=== PATIENT | female | born 1950 | race Caucasian/White ===

== ENCOUNTER 2017-03-25 11:45 | Inpatient (IN) | payer MEDICARE ==
[2017-03-25] MEDS ORDERED: NS 0.9% 1000 ML* 1,000 ML IV ONE (11:50)
--- NOTE | 2017-03-25 12:22 | RAD ---
INDICATION: Left-sided weakness COMPARISON: None. TECHNIQUE: Contiguous axial sections of the brain were obtained from the skull base to the vertex without contrast. FINDINGS: The ventricles, cisterns and sulci are within normal limits. There is loss of the reddy-white matter differentiation involving the right parietal lobe (image 16 of 28) extending inferiorly to involve the right temporal lobe. There is no appearance of acute intracranial hemorrhage. Elsewhere the reddy-white matter differentiation is adequately maintained. There are symmetric hyperdensities at the bilateral basal ganglia. The visualized portion of the paranasal sinuses and mastoid air cells appear clear. IMPRESSION: CT findings are most consistent with a subacute territorial infarction involving the right MCA. Findings were discussed with Dr. Ramirez over the telephone at 1219 hours on March 25, 2017.
[2017-03-25 12:31] LABS: Hematocrit 42 % (35-47); Hemoglobin 13.9 g/dl (12.0-16.0); Mean Corpuscular HGB Conc 34 g/dl (31-36); Mean Corpuscular Hemoglobin 31 pg (27-31); Mean Corpuscular Volume 91 fL (80-97); Mean Platelet Volume 8 um3 (7.4-10.4); Red Blood Count 4.54 10^6/ul (4.0-5.4); Red Cell Distribution Width 15 % (10.5-15); White Blood Count 11.2 10^3/ul (3.5-10.8)
--- NOTE | 2017-03-25 12:38 | RAD ---
HISTORY: Stroke COMPARISONS: None VIEWS: 1: frontal portable view of the chest at 12:15 PM FINDINGS: LINES AND TUBES: None. CARDIOMEDIASTINAL SILHOUETTE: The cardiomediastinal silhouette is normal for portable technique. PLEURA: The costophrenic angles are sharp. No pleural abnormalities are noted. LUNG PARENCHYMA: The lungs are clear. ABDOMEN: The upper abdomen is clear. There is no subphrenic gas. BONES AND SOFT TISSUES: No bone or soft tissue abnormalities are noted. IMPRESSION: NO ACTIVE CARDIOPULMONARY DISEASE.
[2017-03-25 12:45] LABS: Troponin I 0.01 ng/mL (<0.04)
[2017-03-25 12:48] LABS: Albumin 3.6 g/dL (3.2-5.2); BUN/Creatinine Ratio 27.1 (8-20); Calcium 9.4 mg/dL (8.6-10.3); EGFR African American 86.3 (>60); EGFR Non-African American 67.1 (>60); Globulin 3.5 g/dL (2-4); HDL Cholesterol 51.2 mg/dL; Potassium 3.8 mmol/L (3.5-5.0); Total Bilirubin 0.6 mg/dL (0.2-1.0); Total Protein 7.1 g/dL (6.4-8.9)
[2017-03-25] MEDS ORDERED: Aspirin SUPP* 300 MG PR ONE (13:55)
[2017-03-25 14:10] LABS: Urine Bacteria Absent (Absent); Urine Bilirubin Negative (Negative); Urine Glucose Negative (Negative); Urine Nitrite Negative (Negative)
[2017-03-25] MEDS ORDERED: Acetaminophen SUPP* 650 MG SUPP PR PRN (14:32)
[2017-03-25] MEDS ORDERED: NS 0.9% 1000 ML* 1,000 ML IV SCH (14:45)
[2017-03-25] MEDS ORDERED: Iohexol 350* (CONTRAST) 500 ML MDV IV ONE (15:13)
--- NOTE | 2017-03-25 16:04 | CONS ---
NEUROLOGY CONSULTATION: DATE OF CONSULTATION: 03/25/17. LOCATION: She is in the emergency to be admitted. REFERRING PHYSICIAN: Dr. Ramirez. CHIEF COMPLAINT: Fall, left sided weakness. HISTORY OF PRESENT ILLNESS: Haroldo Saavedra is a 66-year-old left-handed woman who fell last night requiring help to get up. She is accompanied by her grandson who apparently she lives with. Her grandson was in home last night, but apparently his friend helped to get up into bed. This morning when they tried to wake her up it was clear that she was not in her usual state of health and so she was brought into the emergency by ambulance. In the emergency room she was noted to have a left hemiparesis and a right gaze deviation. A CT scan of the brain was obtained and I reviewed the images and it shows a subacute right middle cerebral artery infarction. There is no prior history of stroke. Prior to yesterday she felt her usual state of health. She just moved here a couple of moths ago to live with her grandson from [place]. She does not have any physician in this area. She describes a Dr. Culp in [place] who she sees, but she states she has not seen him in a number of years. In regards to prior medical problems she states she has a heart condition, but she is not able to elaborate. She does not think that she has had a heart attack, congestive heart failure, nor does she recognize the term atrial fibrillation. She is not taking any medications at home. So she is not aware if she is supposed to be taking any medications. She does not take aspirin on a regular basis either. PAST MEDICAL HISTORY: Her past medical history is essentially notable for: 1 Chronic tobacco use. 2. Some type of heart condition, and otherwise no known past medical history, although she does not seek regular medical care. ALLERGIES: She does not have any drug allergies. SOCIAL HISTORY: She smokes half a pack of cigarettes per day. She does not drink alcohol. Again she recently moved to this area and is living with her grandson. REVIEWS OF SYSTEMS: Is negative for seizures, head trauma, prior strokes, diabetes, shortness of breath, chest pain, or difficulty walking. She has not had any falls or recently until last evening. She has not been sick lately, specifically no fevers or infectious illnesses. She denies headaches or pain. She is aware that she came in because she fell, but she is not aware of any focal weakness. PHYSICAL EXAMINATION: On physical examination very thin woman who looks older than her 66-years. Temperature 98.6 temporally, blood pressure running between 160 to 170 systolic over 80 to 90 diastolic, heart rate is in the 60s and in sinus on the monitor, respirations 16. Oxygen saturation is 100% on room air. Neck is supple. Head is atraumatic. Oral mucosa is moist and atraumatic. Heart is in regular rate and rhythm without murmurs heard. Carotid pulses are weekly felt, I do not auscultate any bruits. Oral mucosa is moist and there is no oral trauma. Lungs are clear anterolaterally. Neurologic exam: She has a forced right gaze deviation. Pupils react equally from 4 to 2.5 mm. Funduscopic exam reveals sharp discs, no arterial tortuosity. Visual guthrie reveal a dense left homonymous hemianopsia. Facial musculature reveals central pattern left facial weakness. Tongue protrudes weekly to the left and speech is dysarthric and somewhat intelligible. There is no gag response. Motor exam reveals no movement of the left side except when she yawns and the left arm flexes. She does not appreciate light touch or pin in the left side of her body. She has normal sensation on the right. She has normal volitional strength to the right arm and leg. There is no tremor or other abnormal movements. Reflexes are hypoactive diffusely and she has a left Babinski sign. She is somewhat sleepy. She is oriented to person and place. She is not aware of her left hemiparesis. When presented her left hand and left thumb in her visual field she reports that it is my thumb hand. LABORATORY DATA: Includes a CBC notable for white blood cell count borderline elevated 11.2, platelet count of 186,000. Coag's notable for INR borderline low at 0.88, PTT normal at 30 seconds. Chemistry profile notable for nonfasting glucose of 117, troponin 0.01, cholesterol [address] scan as described above. EKG reveals some nonspecific ST T-wave changes in sinus rhythm. IMPRESSION: My impression is that of a middle cerebral artery distribution stroke, possibly internal carotid occlusion. She is well outside the range for any type of endovascular procedure. Recommend giving her rectal aspirin 300 mg. I would hold off on statins until she has a swallowing evaluation, but I would recommend high dose statin therapy once she is able to swallow safely. I will keep her well hydrated and currently let her blood pressure run. I would not recommend treating unless her systolic exceeds 200 or diastolic exceeds 105. Recommend a CT angiogram of the neck and brain as well as an MRI scan of the brain. She should also have a transthoracic echocardiogram and possibly serial troponins. She should be admitted to telemetry. I have explained to Ms. Saavedra and her grandson that she is showing signs and symptoms of a stroke and her CAT scan confirms an early stroke. I explained that she needs to be admitted for further evaluation and treatment. I will follow her along with you. [id number]/[facility] #: [id number] JOSE R
--- NOTE | 2017-03-25 16:29 | HP ---
CC: Dr. Prado HISTORY AND PHYSICAL: DATE OF ADMISSION: 03/25/17 TIME OF EVALUATION: 02:50 p.m. PRIMARY CARE PHYSICIAN: The patient has no PCP in [place]. Her primary care provider used to be Dr. Titi Westfall at [facility] in [place], [place], phone number [phone]. CONSULTING NEUROLOGIST: Dr. Prado. CHIEF COMPLAINT: She could not move. HISTORY OF PRESENT ILLNESS: Mrs. Saavedra is a 66-year-old lady with a past medical history of tobacc o abuse that was brought into the emergency room with left-sided weakness and dysarthria. She is un able to provide any significant history at this point, and all the information is obtained from her grandson, Pravin Cuevas, at bedside. He says that the patient is healthy and moved to live with him from [place] 2 months ago. Yest erday around 6, she sustained a fall at home and one of his friends helped her. This morning, he fe lt it was strange that he woke up and she was not up, so he went to check on her in the bedroom and she was feeling bad, unable to move, he could not understand what she was saying and he noticed that she had incontinent of urine in bed. As far as he knows, she had no other complaints and she was doing well when he saw her yesterday bef ore going to work. PAST MEDICAL HISTORY: None as per grandson. ALLERGIES: As far as he knows, no known drug allergies. FAMILY HISTORY: He says that one of her sons of leukemia and daughter has hypertension. SOCIAL HISTORY: The patient has been a smoker half a pack a day; the grandson does not know for how long. No history of alcohol or drug use as far as he knows. He is the surrogate decision maker, Krysten Cuevas, . REVIEW OF SYSTEMS: I am unable to obtain from the patient at this time due to her significant dysar thria. PHYSICAL EXAMINATION VITAL SIGNS: Temperature 98.6, heart rate is 63, respiratory rate is 16, oxygen saturation 99% on r oom air, blood pressure 179/87. HEENT: Pupils are equal and reactive to light. The patient has a gaze deviation to the right and n ystagmus. CHEST: Breath sounds present bilaterally with no added sounds. CVS: Normal S1, S2. Regular rate and rhythm. ABDOMEN: Soft. Bowel sounds are present. EXTREMITIES: No edema. NEURO: She is alert, awake, oriented to self at least, severe dysarthria, left hemiplegia. LABORATORY/IMAGING DATA: The patient had a CBC that showed a WBC of 11.2, hemoglobin of 13.9, hailee tocrit of 42, platelets 186,000 with 76% neutrophils. Chemistry shows sodium of 138, potassium of 3. 8, chloride of 106, bicarb 24, anion gap of 8, BUN 23, creatinine 0.85, glucose 117, lactic acid 0.9 , and calcium 9.4. LFTs are normal. Troponin 0.01. Lipid profile showed triglycerides of 74, total cholesterol of 230, LDL of 164, HDL of 51. Urinalysis showed 3+ protein, 3+ blood, 3+ RBC's. CT of the brain without contrast showed findings most consistent with a subacute territorial infract ion involving the right MCA. Chest x-ray showed no active cardiopulmonary disease. EKG showed sinus rhythm at 67 beats per minut e. The patient has T-wave inversion from V1 to V5. There is no prior EKG to compare. ASSESSMENT AND PLAN: Mrs. Saavedra is a 66-year-old lady with past medical history of tobacco abuse t hat was found by her grandson this morning with dysarthria, left hemiplegia, found to have a right M CA stroke. 1. Right MCA cerebrovascular accident. Considering her physical examination, the patient appears t o have had a large right hemisphere stroke. Clinically, the patient appears to have large right hemisphere cerebrovascular accident, so she will be admitted to the intensive care unit for close monitoring. She was already seen by Neurology and she is going to have an echocardiogram, MRI of the brain, CT of the head and neck to complete her wo rkup. She will be seen by PT, OT, and Speech Therapy, but at this time she is deemed unsafe to swallow. S he will receive rectal aspirin. She will require a statin, but as I said before, she is not safe to follow at this point. We are going to obtain records from her primary care provider to confirm that she does not have any significant medical history. 2. Tobacco abuse. The patient does not have a nicotine patch for supplementation. 3. DVT prophylaxis. The patient has a score of 2 on the DVT Prophylaxis Risk Assessment Guide and it was discussed with Neurology and it was felt that it is safe to give her subcutaneous heparin. 4. Code status is full. TIME SPENT: Approximately 60 minutes were spent with the patient to review medical records, review physical examination to complete admission, more than half of this time was spent [id number] with the patient in coordination of care. [id number]/[facility] #: [id number]
[2017-03-25] MEDS: Nicotine PATCH 14 MG/24 HR* PATCH TRANSDERM SCH (17:12)
--- NOTE | 2017-03-25 17:15 | RAD ---
INDICATION: Cerebrovascular accident. COMPARISON: Comparison is made with a prior CT of the brain from March 25, 2017. TECHNIQUE: A CT angiogram of the head and neck was performed following intravenous injection of 80 ml of Omnipaque 350 nonionic contrast. Contiguous axial sections were obtained from the thoracic inlet through the skull vertex. Images were reconstructed in the coronal and sagittal planes and in a 3-D volume rendered format. The distal cervical internal carotid artery diameter is used as the denominator for stenosis measurement. FINDINGS: RIGHT CAROTID: The common and internal carotid arteries appear widely patent without evidence for hemodynamically significant stenosis. There is mild calcific plaque present within the carotid bulb. LEFT CAROTID: The common and internal carotid arteries appear widely patent without evidence for hemodynamically significant stenosis. VERTEBRALS: The vertebral arteries appear patent without evidence for high-grade stenosis. CTA BRAIN: The internal carotid, anterior and middle cerebral arteries appear patent without evidence for high-grade stenosis or occlusion. There is asymmetric decreased opacification in density in several branches of the right middle cerebral artery. No large vessel thrombus is appreciated. The vertebral, basilar and posterior cerebral arteries appear patent without evidence for high-grade stenosis or occlusion. There is a focal area of decreased density present in the right parietal and temporal lobes most consistent with a middle cerebral artery infarct. There is local mass effect with effacement of the sulci. No midline shift is seen. No aneurysm or vascular malformation is seen. NECK: No significant enlarged lymph nodes are seen within the neck. The thyroid, parotid and submandibular glands appear to be within normal limits. The lung apices appear clear. There is opacification of the right maxillary sinus. There is marked also thickening within the ethmoid and sphenoid sinuses. IMPRESSION: 1. FINDINGS CONSISTENT WITH AN ACUTE TO SUBACUTE RIGHT MIDDLE CEREBRAL ARTERY INFARCT. 2. NO EVIDENCE FOR CAROTID STENOSIS OR LARGE VESSEL INTRALUMINAL THROMBUS. THERE IS DECREASED OPACIFICATION AND DENSITY AND SEVERAL BRANCHES OF THE RIGHT MIDDLE CEREBRAL ARTERY. CPT II Codes: 3100F
--- NOTE | 2017-03-25 18:37 | PN ---
Hospitalist Progress Note HOSPITALIST ADDENDUM Called by RN because patient is showing mild anisocoria R 3mm L 4mm. This is the only change on her neurocheck. Patient re-evaluated at bedside with no other changes. CTA head reviewed. Case d/w Neurology (Dr. Prado) - recommended continuation of ASA OH, make sure patient is well hydrated, but would not recommend anticoagulation as her risk of X [employer] bleeding is very high. We will continue to monitor her closely in ICU and she'll have her MRI later tonight.
--- NOTE | 2017-03-25 20:57 | RAD ---
INDICATION: Cerebrovascular accident. COMPARISON: Comparison is made with a prior CT of the brain from March 25, 2017. TECHNIQUE: Sagittal T1, axial T1, T2, susceptibility, FLAIR and diffusion weighted images were obtained. FINDINGS: The ventricles and cisterns appear to be within normal limits. There are small areas of increased signal intensity on T2-weighted images present in the subcortical and periventricular white matter most consistent with chronic small vessel ischemic changes. In addition, there is a moderate size area of increased signal intensity on T2-weighted images present in the right temporal and parietal lobes associated with restricted diffusion most consistent with a nonhemorrhagic infarct. There is very mild local mass effect with compression of the adjacent sulci. No midline shift is present. There is opacification of the right maxillary sinus and mucosal thickening within the ethmoid air cells. The mastoid air cells appear clear. IMPRESSION: 1. MODERATE-SIZE NONHEMORRHAGIC RIGHT MIDDLE CEREBRAL ARTERY TERRITORY INFARCT. 2. FINDINGS CONSISTENT WITH MILD CHRONIC SMALL VESSEL ISCHEMIC CHANGES.
[2017-03-25] MEDS: Heparin VIAL(*) 5000 UNITS/ML VIAL (FIVE THOUSAND) SUBCUT SCH (21:45)
[2017-03-25] MEDS: Nicotine Patch Removal NOTE FOLLOW UP SCH (21:46)
[2017-03-26] MEDS ORDERED: hydrALAZINE IV* 20 MG/ML VIAL IV PRN (02:41)
[2017-03-26] MEDS ORDERED: Furosemide IV* 10 MG/ML 2 ML VIAL (20 MG) IV ONE (04:00)
[2017-03-26] MEDS: Heparin VIAL(*) 5000 UNITS/ML VIAL (FIVE THOUSAND) SUBCUT SCH ×3 (05:42→21:32)
[2017-03-26 05:58] LABS: Hematocrit 41 % (35-47); Hemoglobin 14.1 g/dl (12.0-16.0); Mean Corpuscular HGB Conc 34 g/dl (31-36); Mean Corpuscular Hemoglobin 31 pg (27-31); Mean Corpuscular Volume 91 fL (80-97); Mean Platelet Volume 8 um3 (7.4-10.4); Red Blood Count 4.54 10^6/ul (4.0-5.4); Red Cell Distribution Width 14 % (10.5-15); White Blood Count 11.1 10^3/ul (3.5-10.8)
[2017-03-26 06:14] LABS: BUN/Creatinine Ratio 21.1 (8-20); Calcium 9.4 mg/dL (8.6-10.3); EGFR African American 106.3 (>60); EGFR Non-African American 82.6 (>60); Potassium 3.4 mmol/L (3.5-5.0)
--- NOTE | 2017-03-26 07:25 | ED ---
Tanna Carter Alfonso, scribed for Erick Ramirez MD on 03/25/17 at 1153 . Neurological HPI - HPI Summary HPI Summary: This patient is a 66 year old F BIBA to [facility] accompanied by grandson with a chief complaint of left sided weakness noticed at 0100 today. She was last seen well yesterday at 1900. The patient rates the pain 0/10 in severity. Symptoms aggravated by nothing. Symptoms alleviated by nothing. Patient reports CP (left sided). Grandson states she does not take any medications and denies PSHx. Tobacco abuse disorder (1/2 PPD). - History of Current Complaint Chief Complaint: EDNeurologicalDeficit Stated Complaint: POSS STROKE Hx Obtained From: Patient Onset/Duration: Sudden Onset, Started hours ago - last seen well at 1900 yesterday. Noticed at 0100 today., Still Present Timing: Constant Neurological Deficit Location: LUE, LLE Pain Intensity: 0 Pain Scale Used: 0-10 Numeric Character: Motor Weakness, Other: - CP Aggravating: Nothing Alleviating: Nothing - Allergy/Home Medications Allergies/Adverse Reactions: Allergies Allergy/AdvReac Type Severity Reaction Status Date / Time No Known Allergies Allergy Verified 03/25/17 12:08 Home Medications: Home Medications NK [No Home Medications Reported] 03/25/17 [History Confirmed 03/25/17] PMH/Surg Hx/FS Hx/Imm Hx Opthamlomology History: Denies: Hx Legally Blind EENT History: Denies: Hx Deafness Infectious Disease History: Unable to Obtain/Confirm Infectious Disease History: Denies: Traveled Outside the [place] in Last 30 Days - Family History Known Family History: Positive: Hypertension - Social History Lives: With Family - grandson Alcohol Use: Rare Hx Substance Use: No Substance Use Type: Reports: None Hx Tobacco Use: Yes Smoking Status (MU): Heavy Every Day Tobacco Smoker - 1/2 PPD Review of Systems Negative: Fever Positive: Chest Pain Positive: Weakness - left sided All Other Systems Reviewed And Are Negative: Yes Physical Exam - Summary Physical Exam Summary: VITAL SIGNS: Reviewed. GENERAL: Patient is a well-developed and nourished female who is lying comfortable in the stretcher. Patient is not in any acute respiratory distress. HEAD AND FACE: No signs of trauma. No ecchymosis, hematomas or skull depressions. No sinus tenderness. EYES: PERRLA, EOMI x 2, No injected conjunctiva, no nystagmus. No photophobia. EARS: Hearing grossly intact. Ear canals and tympanic membranes are within normal limits. MOUTH: Oropharynx within normal limits. NECK: Supple, trachea is midline, no adenopathy, no JVD, no carotid bruit, no c- spine tenderness, neck with full ROM. No meningeal signs, no Kernig's or brudzinskis signs. CHEST: Symmetric, no tenderness at palpation LUNGS: Clear to auscultation bilaterally. No wheezing or crackles. CVS: Regular rate and rhythm, S1 and S2 present, no murmurs or gallops appreciated. ABDOMEN: Soft, non-tender. No signs of distention. No rebound no guarding, and no masses palpated. Bowel sounds are normal. EXTREMITIES: FROM in all major joints, no edema, no cyanosis or clubbing. NEURO: Alert and oriented x 3. Speech follows commands. See NIH stroke scale. SKIN: Dry and warm GCS: 15 Triage Information Reviewed: Yes Vital Signs On Initial Exam: Initial Vitals Temp Pulse Resp BP Pulse Ox 98.6 F 80 14 158/89 99 03/25/17 11:46 03/25/17 11:46 03/25/17 11:46 03/25/17 11:46 03/25/17 11:46 Vital Signs Reviewed: Yes - Shiela Coma Scale Best Eye Response: 4 - Spontaneous Best Motor Response: 6 - Obeys Commands Best Verbal Response: 5 - Oriented Diagnostics - Vital Signs Vital Signs Temp Pulse Resp BP Pulse Ox 03/25/17 11:46 98.6 F 80 14 158/89 99 - Laboratory Lab Results: Lab Results 03/25/17 03/25/17 03/25/17 Range/Units 12:10 12:10 12:10 WBC 11.2 H (3.5-10.8) 10^3/ul RBC 4.54 (4.0-5.4) 10^6/ul Hgb 13.9 (12.0-16.0) g/dl Hct 42 (35-47) % MCV 91 (80-97) fL MCH 31 (27-31) pg MCHC 34 (31-36) g/dl RDW 15 (10.5-15) % Plt Count 186 (150-450) 10^3/ul MPV 8 (7.4-10.4) um3 Neut % (Auto) 76.6 (38-83) % Lymph % (Auto) 14.1 L (25-47) % [place] % (Auto) 8.5 (1-9) % Eos % (Auto) 0.4 (0-6) % Baso % (Auto) 0.4 (0-2) % Absolute Neuts (auto) 8.6 H (1.5-7.7) 10^3/ul Absolute Lymphs (auto) 1.6 (1.0-4.8) 10^3/ul Absolute Monos (auto) 1.0 H (0-0.8) 10^3/ul Absolute Eos (auto) 0 (0-0.6) 10^3/ul Absolute Basos (auto) 0 (0-0.2) 10^3/ul Absolute Nucleated RBC 0.01 10^3/ul Nucleated RBC % 0 INR (Anticoag Therapy) 0.88 L (0.89-1.11) APTT 30.0 (26.0-36.3) seconds Sodium 138 (133-145) mmol/L Potassium 3.8 (3.5-5.0) mmol/L Chloride 106 (101-111) mmol/L Carbon Dioxide 24 (22-32) mmol/L Anion Gap 8 (2-11) mmol/L BUN 23 (6-24) mg/dL Creatinine 0.85 (0.51-0.95) mg/dL Est GFR ( Amer) 86.3 (>60) Est GFR (Non-Af Amer) 67.1 (>60) BUN/Creatinine Ratio 27.1 H (8-20) Glucose 117 H (70-100) mg/dL Lactic Acid (0.5-2.0) mmol/L Calcium 9.4 (8.6-10.3) mg/dL Total Bilirubin 0.60 (0.2-1.0) mg/dL AST 16 (13-39) U/L ALT 10 (7-52) U/L Alkaline Phosphatase 96 (34-104) U/L Troponin I 0.01 (<0.04) ng/mL Total Protein 7.1 (6.4-8.9) g/dL Albumin 3.6 (3.2-5.2) g/dL Globulin 3.5 (2-4) g/dL Albumin/Globulin Ratio 1.0 (1-3) Triglycerides 74 mg/dL Cholesterol 230 mg/dL LDL Cholesterol 164 mg/dL HDL Cholesterol 51.2 mg/dL Urine Color Urine Appearance Urine pH (5-9) Ur Specific [place] (1.010-1.030) Urine Protein (Negative) Urine Ketones (Negative) Urine Blood (Negative) Urine Nitrate (Negative) Urine Bilirubin (Negative) Urine Urobilinogen (Negative) Ur Leukocyte Esterase (Negative) Urine WBC (Auto) (Absent) Urine RBC (Auto) (Absent) Urine Bacteria (Absent) Urine Glucose (Negative) Urine Ascorbic Acid (Negative) Blood Type Antibody Screen 03/25/17 03/25/17 03/25/17 Range/Units 12:10 12:10 12:32 WBC (3.5-10.8) 10^3/ul RBC (4.0-5.4) 10^6/ul Hgb (12.0-16.0) g/dl Hct (35-47) % MCV (80-97) fL MCH (27-31) pg MCHC (31-36) g/dl RDW (10.5-15) % Plt Count (150-450) 10^3/ul MPV (7.4-10.4) um3 Neut % (Auto) (38-83) % Lymph % (Auto) (25-47) % Madison % (Auto) (1-9) % Eos % (Auto) (0-6) % Baso % (Auto) (0-2) % Absolute Neuts (auto) (1.5-7.7) 10^3/ul Absolute Lymphs (auto) (1.0-4.8) 10^3/ul Absolute Monos (auto) (0-0.8) 10^3/ul Absolute Eos (auto) (0-0.6) 10^3/ul Absolute Basos (auto) (0-0.2) 10^3/ul Absolute Nucleated RBC 10^3/ul Nucleated RBC % INR (Anticoag Therapy) (0.89-1.11) APTT (26.0-36.3) seconds Sodium (133-145) mmol/L Potassium (3.5-5.0) mmol/L Chloride (101-111) mmol/L Carbon Dioxide (22-32) mmol/L Anion Gap (2-11) mmol/L BUN (6-24) mg/dL Creatinine (0.51-0.95) mg/dL Est GFR ( Amer) (>60) Est GFR (Non-Af Amer) (>60) BUN/Creatinine Ratio (8-20) Glucose (70-100) mg/dL Lactic Acid 0.9 (0.5-2.0) mmol/L Calcium (8.6-10.3) mg/dL Total Bilirubin (0.2-1.0) mg/dL AST (13-39) U/L ALT (7-52) U/L Alkaline Phosphatase (34-104) U/L Troponin I (<0.04) ng/mL Total Protein (6.4-8.9) g/dL Albumin (3.2-5.2) g/dL Globulin (2-4) g/dL Albumin/Globulin Ratio (1-3) Triglycerides mg/dL Cholesterol mg/dL LDL Cholesterol mg/dL HDL Cholesterol mg/dL Urine Color Cassandra Urine Appearance Cloudy Urine pH 5.0 (5-9) Ur Specific [place] 1.017 (1.010-1.030) Urine Protein 3+(>=500 mg/dl) H (Negative) Urine Ketones Negative (Negative) Urine Blood 3+ H (Negative) Urine Nitrate Negative (Negative) Urine Bilirubin Negative (Negative) Urine Urobilinogen Negative (Negative) Ur Leukocyte Esterase Negative (Negative) Urine WBC (Auto) Absent (Absent) Urine RBC (Auto) 3+(>10/hpf) H (Absent) Urine Bacteria Absent (Absent) Urine Glucose Negative (Negative) Urine Ascorbic Acid * H (Negative) Blood Type O Positive Antibody Screen Negative Result Diagrams: 03/26/17 05:45 03/26/17 05:45 Lab Statement: Any lab studies that have been ordered have been reviewed, and results considered in the medical decision making process. - Radiology CXR Radiology Interpretation Completed By: Radiologist - NO ACTIVE CARDIOPULMONARY DISEASE. ED physician has reviewed this radiology report and agrees. 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 Findings were discussed with Dr. Ramirez over the telephone at 1219 hours on March 25, 2017. ED physician has reviewed this radiology report and agrees. - EKG 1232 Cardiac Rate: NL - BPM 67 EKG Rhythm: Sinus Rhythm EKG Interpretation: No ST elevation. T waves inversions in V3-V5. EKG Comparison: Other - No prior to compare NIH Scale - NIH Scale Level of Consciousness: Alert/Keenly Responsive Ask Patient the Month and His/Her Age: Both Correct Ask Pt to Open/Close Eyes and Automotive Sales Specialist/Release Non-Paretic Hand: Both Correctly Best Gaze (Only Horizontal Eye Movement): Normal Visual Field Testing: No Visual Loss Facial Paresis-Pt to Smile & Close Eyes or Grimace Symmetry: Minor Paralysis Motor Function - Right Arm: No Drift-Holds 10 Seconds Motor Function - Left Arm: No Effort Against [place] Motor Function - Right Leg: No Drift-Holds 10 Seconds Motor Function - Left Leg: No Effort Against [place] Limb Ataxia-Must be out of Proportion to Weakness Present: Present in Two Limbs Sensory (Use Pinprick to Test Arms/Legs/Trunk/Face): Pinprick Less on Affected Best Language (Describe Picture, Name Items): Some Loss Dysarthria (Read Several Words): Slurs Some Words Extinction and Inattention: No Abnormality Total Score: 12 Course/Dx - Course Assessment/Plan: This patient is a 66 year old F BIBA to [facility] accompanied by grandson with a chief complaint of left sided weakness noticed at 0100 today. She was last seen well yesterday at 1900. The patient rates the pain 0/10 in severity. Symptoms aggravated by nothing. Symptoms alleviated by nothing. Patient reports CP (left sided). Grandson states she does not take any medications and denies PSHx. Tobacco abuse disorder (1/2 PPD). An EKG reveals NSR and T waves inversions in V3-V5. CXR reveals NO ACTIVE CARDIOPULMONARY DISEASE. ED physician has reviewed this radiology report and agrees. 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 Findings were discussed with Dr. Ramirez over the telephone at 1219 hours on March 25, 2017. ED physician has reviewed this radiology report and agrees. Test results with no significant abnormalities except for WBC of 11.2 and glucose of 117. Urinalysis negative for UTI. Initially when the patient came in, I consulted Dr. Prado (neurologist) at 1202 who came and accessed the patient in the ED. He did not want me to give ASA at this time. After his assessment, he agrees with the assessment of CVA and recommends admission. I consulted Dr. Bales (hospitalist) who agrees to admit. The patient is hemodynamically stable. - Differential Dx Differential Diagnoses Neuro: Positive: Cerebrovascular Accident, Seizure Disorder, Transient Ischemic Attack, Vasovagal Reaction - Diagnoses Provider Diagnoses: CVA (cerebral vascular accident) - Physician Notifications Discussed Care Of Patient With: Venkata Prado Time Discussed With Above Provider: 12:02 Instructed by Provider To: Other - Consulted Dr. Prado (neurologist) who will see the patient in the ED. Consulted Dr. Bales (hospitalist) who agrees to admit. - Critical Care Time Critical Care Time: 30-74 min Discharge - Discharge Plan Condition: Stable Disposition: ADMITTED TO [facility] The documentation as recorded by the Tanna roberts Alfonso accurately reflects the service I personally performed and the decisions made by me, Erick Ramirez MD.
[2017-03-26] MEDS: Nicotine PATCH 14 MG/24 HR* PATCH TRANSDERM SCH (08:37)
[2017-03-26] MEDS ORDERED: Furosemide IV* 10 MG/ML 2 ML VIAL (20 MG) IV SLOW PU ONE (08:43)
[2017-03-26] MEDS ORDERED: Aspirin SUPP* 300 MG PR SCH (09:00)
--- NOTE | 2017-03-26 09:40 | ECHO ---
Patient: REINALDO HARMON [facility] Rec#: [id number] : 1950 Date: 03/26/2017 Age: 66y Height: 154.94 cm / 61.0 in Weight: 40.82 kg / 90.0 lbs Sex: F BSA: 1.35 Room#: ICU 8 Admit Date#: 03/25/2017 Type: Inpatient Referring: Graciela Porter MD Reading: Joe Catherine MD Painter Maintenance: Armida RiveraRDCS,RDMS Transthoracic Echocardiogram Indication: CVA BP: 138/91 HR: 83 Rhythm: NSR Findings History: No previous history Technical Comments: The study quality is fair. Completed 829 The study is technically limited due to poor parasternal windows. Left Ventricle: The left ventricular chamber size is normal. Mild concentric left ventricular hypertrophy is observed. Global left ventricular wall motion and contractility are within normal limits. There is normal left ventricular systolic function. The estimated ejection fraction is 55-60%. There is no consistent Doppler evidence of clinically significant diastolic dysfunction. Left Atrium: The left atrial chamber size is normal. Right Ventricle: The right ventricular chamber size and systolic function are within normal limits. Right Atrium: The right atrial cavity size is normal. The bubble study is negative.There is no evidence of right to left shunting at the atrial level by bubble study. A patent foramen ovale is not demonstrated with color Doppler and agitated contrast. Aortic Valve: There is no evidence of aortic valve thickening. There is no evidence of aortic regurgitation. There is no evidence of aortic stenosis. Mitral Valve: The mitral valve leaflets are mildly thickened. There is a trace of mitral regurgitation. There is no evidence of mitral stenosis. Tricuspid Valve: The tricuspid valve leaflets are normal. There is trace tricuspid regurgitation. Unable to estimate the right ventricular systolic pressure. Pulmonic Valve: The pulmonic valve structure is not well visualized. There is no evidence of pulmonic regurgitation. Pericardium: There is no significant pericardial effusion. Aorta: The ascending aorta is not well visualized. There is no dilatation of the aortic arch. There is no dilation of the aortic root. Pulmonary Artery: The main pulmonary artery is not well visualized. Venous: The inferior vena cava is not visualized. Contrast: Intravenous agitated saline contrast was used to assess intracardiac shunting. Images 1 and 2 Conclusions The study is technically limited due to poor parasternal windows. The bubble study is negative.There is no evidence of right to left shunting at the atrial level by bubble study. Mild concentric left ventricular hypertrophy is observed. There is normal left ventricular systolic function. The estimated ejection fraction is 55-60%. No significant valvular disease from limited views: There is a trace of mitral regurgitation. There is trace tricuspid regurgitation. No reports of prior studies offered for comparison Measurements Name Value Normal Range RVIDd (AP) 2D 1.8 cm (0.9 - 2.6) RVDdMajor (2D) 2.2 cm (2.2 - 4.4) RAd ISD 4CH 3.7 cm (3.4 - 4.9) RA (A4C)W 3.8 cm (2.9 - 4.6) IVSd (2D) 1.1 cm (0.6 - 1) LVPWd (2D) 1.1 cm (0.6 - 1) LVIDd (2D) 4.1 cm (3.6 - 5.4) LVIDs (2D) 3 cm - LV FS (2D) 27 % (25 - 45) Aortic Annulus 2.2 cm (1.4 - 2.6) Ao root diameter (2D) 3.5 cm (2.1 - 3.5) Aortic arch 2.4 cm (1.8 - 3.4) LA dimension (AP) 2D 2.7 cm (2.3 - 3.8) LAd ISD 4CH 4.3 cm (2.9 - 5.3) LA ISD 4CH W 3.9 cm (2.5 - 4.5) Name Value Normal Range LA ESV SP 4CH (A/L) 32.66 ml - LA ESV SP 2CH (A/L) 30.03 ml - LA ESV BP (A/L) 32.1 ml - LA ESV BP (A/L) index 24 ml/m2 - LA ESV SP 4CH (MOD) 31.49 ml - LA ESV SP 2CH (MOD) 28.26 ml - Name Value Normal Range MV E-wave Vmax 0.7 m/sec - MV deceleration time 105 msec - MV A-wave Vmax 0.5 m/sec - MV E:A ratio 1.4 ratio - LV lateral e' Vmax 0.06 m/sec - LV E:e' lateral ratio 12 ratio - Name Value Normal Range AV Vmax 1 m/sec - AV VTI 18.3 cm - AV peak gradient 4 mmHg - AV mean gradient 2.3 mmHg - LVOT Vmax 0.8 m/sec - LVOT VTI 13.1 cm - LVOT peak gradient 2.6 mmHg - LVOT mean gradient 1.3 mmHg - GEETA Vmax 0.6 m/sec - Name Value Normal Range RAP 8 mmHg - Name Value Normal Range PV Vmax 1.01 m/sec - PV peak gradient 4 mmHg -
--- NOTE | 2017-03-26 12:45 | PN ---
Subjective Date of Service: 03/26/17 Interval History: HOSPITALIST PROGRESS NOTE Patient seen and examined at bedside. She is more awake today, offers no complaints at this time. As per RN, she became dyspneic overnight due to fluid overload, requiring diuresis. Although she offers no complaints, she still seems to be a little dyspneic. Family History: Unchanged from Admission Social History: Unchanged from Admission Past Medical History: Unchanged from Admission Objective Active Medications: Acetaminophen (Tylenol Supp*) 650 mg AZ Q4H PRN PRN Reason: Pain/fever Aspirin (Aspirin Supp*) 300 mg AZ DAILY [facility] Last Admin: 03/26/17 08:21 Dose: 300 mg Heparin Sodium (Porcine) (Heparin Vial(*)) 5,000 units SUBCUT Q8HR [facility] Last Admin: 03/26/17 05:42 Dose: 5,000 units Hydralazine HCl (Apresoline Iv*) 10 mg IV Q4H PRN PRN Reason: Systolic >180 Nicotine (Nicotine Patch 14 Mg/24 Hr*) 1 patch TRANSDERM DAILY [facility] Last Admin: 03/26/17 08:37 Dose: 1 patch Pharmacy Profile Note (Nicotine Patch Removal Note*) 1 note FOLLOW UP 2100 [facility] Last Admin: 03/25/17 21:46 Dose: 1 note Vital Signs 03/26/17 03/26/17 03/26/17 11:01 11:30 12:00 Temperature 99.3 F Pulse Rate 76 71 75 Respiratory 23 22 21 Rate Blood Pressure 144/89 142/91 (mmHg) O2 Sat by Pulse 92 91 92 Oximetry Oxygen Devices in Use Now: Nasal Cannula Appearance: Elderly lady lying in bed in [facility]. Eyes: No Scleral Icterus, - - Right gaze preference, anisocoria is resolved Ears/Nose/Mouth/Throat: Mucous Membranes Moist Neck: Trachea Midline Respiratory: Symmetrical Chest Expansion and Respiratory Effort, - - BS+ bilaterally with bibasilar rales Cardiovascular: RRR - Normal S1 and S2 Abdominal: NL Sounds; No Tenderness; No Distention Extremities: No Edema Neurological: - - Lethargic, but easily arousable, Left hemiplegia, left neglect , dysarthria Lines/Tubes/Other Access: Clean, Dry and Intact Peripheral IV Nutrition: - - NPO Result Diagrams: 03/26/17 05:45 03/26/17 05:45 Assess/Plan/Problems-Billing Assessment: Mrs. Saavedra is a 66yo F with PMH of tobacco abuse, who presented to ED with left sided weakness, found to have a CVA. - Patient Problems (1) Fluid overload Comment: - IVF were discontinued. - Continue gentle diuresis. (2) CVA (cerebral vascular accident) Comment: - Clinical presentation suggests right MCA CVA. - CTA head showed no carotid stenosis or large vessel intraluminal thrombus. There is decreased opacification and density in several branches of the right MCA. This could suggest embolic etiology. - MRI brain showed moderate sized non-hemorrhagic right MCA infarct. - Echo showed EF 55-60% and negative bubble study. - Passed her swallow eval - start diet, change Aspirin to PO, and start high dose statin. - Awaiting PT/OT eval - she'll need rehab. - Awaiting Neurology follow up. (3) Tobacco abuse Comment: - Nicotine patch. (4) DVT prophylaxis Comment: - SQ heparin. (5) Full code status
[2017-03-26] MEDS ORDERED: Acetaminophen TAB* 325 MG PO PRN (13:27)
[2017-03-26] MEDS: Atorvastatin* 80 MG TAB PO SCH (16:33)
--- NOTE | 2017-03-26 21:13 | PN ---
NEUROLOGY FOLLOWUP NOTE: DATE OF FOLLOWUP: 03/26/17 HOSPITALIST: Dr. Arreola. CHIEF COMPLAINT: Right-sided weakness. INTERVAL HISTORY: Since yesterday, Ms. Saavedra is doing a little better. She was having some breathing problems last night requiring diuresis and resolved by this morning. She was able to pass a swallowing test and eat breakfast and some lunch. She had no difficulty swallowing according to her grandson, who is present as well today. No problems with headaches. MEDICATIONS: Currently consist of: 1. Atorvastatin 80 mg p.o. daily started today. 2. Subcutaneous heparin 5000 units q.8 hours. 3. Nicotine patch. 4. Aspirin 81 mg p.o. daily. 5. Hydralazine p.r.n. PHYSICAL EXAMINATION: Temperature is 99.8 temporally earlier this morning, 97.1 most recently. Blood pressure is running about 140 to 150 systolic over 82 to 100 diastolic. Respirations 20 and oxygen saturation is 92% on supplemental oxygen. Currently, she is pretty sleepy and hard to keep awake. Her grandson states she was alert and eating just a little while ago. I did not arouse her further at this point. DIAGNOSTIC DATA/LABORATORY DATA: Her additional laboratory studies obtained since yesterday included an MRI of the brain, which reveals an acute right middle cerebral artery infarction. CT angiogram of the brain reveals cut off of several right middle cerebral artery branches, but no large vessel stenosis. Echocardiogram is essentially unremarkable. Other laboratory studies include chemistry profile with glucose this morning of 112, cholesterol yesterday 213, and LDL 164. IMPRESSION: Right middle cerebral artery infarction. There is no evidence of a cardioembolic source at this point in time and so antiplatelet therapy remains the main stay as well as highly potency statins. Currently, she is on aspirin and atorvastatin. Her blood pressures have been a bit high but I would not alter it acutely at this point as it has been just a day since onset of her symptoms. At this point, I think she should be evaluated by Physical Medicine Rehab regarding possible rehab stay. Unless she develops atrial fibrillation, I think antiplatelet therapy and her current statin therapy is appropriate. Her blood pressure will need to be monitored over a longer timeframe and optimized gradually. Currently, she is not smoking and clearly will need to be maintained to optimize her chance of not having a recurrent stroke. [id number]/[facility] #: [id number] [facility]OSPITALKrysten
[2017-03-26] MEDS: Nicotine Patch Removal NOTE FOLLOW UP SCH (21:32)
[2017-03-27] MEDS: Heparin VIAL(*) 5000 UNITS/ML VIAL (FIVE THOUSAND) SUBCUT SCH ×3 (05:24→22:34)
[2017-03-27] MEDS: Nicotine PATCH 14 MG/24 HR* PATCH TRANSDERM SCH (07:21)
[2017-03-27] MEDS ORDERED: Aspirin EC Low Dose* 81 MG TAB.EC PO SCH (09:00)
[2017-03-27] MEDS: Polyethylene Glycol 3350* 17 GM PACKET PO SCH (14:57)
[2017-03-27 15:54] LABS: Urine Bacteria 3+ (Absent); Urine Bilirubin Negative (Negative); Urine Glucose 1+(50 mg/dL) (Negative); Urine Nitrite Positive (Negative)
[2017-03-27] MEDS ORDERED: Acetaminophen ADULT LIQ* 650 MG/20.3 ML UDC PO PRN (16:32)
[2017-03-27] MEDS: Atorvastatin* 80 MG TAB PO SCH (16:39)
[2017-03-27] MEDS: cefTRIAXone VIAL(*) 1,000 MG in NS 0.9% 50 ML* 50 ML IVPB SCH (17:42)
--- NOTE | 2017-03-27 18:12 | PN ---
Subjective Date of Service: 03/27/17 Interval History: Pt was up and eating earlier this aM, now sleeping, temp 100.5 Family History: Unchanged from Admission Social History: Unchanged from Admission Past Medical History: Unchanged from Admission Objective Active Medications: Acetaminophen (Tylenol Adult Liq*) 650 mg PO Q6H PRN PRN Reason: pain/fever Last Admin: 03/27/17 16:38 Dose: 650 mg Aspirin (Aspirin Low Dose Tab*) 81 mg PO DAILY [facility] Atorvastatin Calcium (Lipitor*) 80 mg PO 1700 [facility] Last Admin: 03/27/17 16:39 Dose: 80 mg Heparin Sodium (Porcine) (Heparin Vial(*)) 5,000 units SUBCUT Q8HR [facility] Last Admin: 03/27/17 13:36 Dose: 5,000 units Hydralazine HCl (Apresoline Iv*) 10 mg IV Q4H PRN PRN Reason: Systolic >180 Ceftriaxone Sodium 1,000 mg/ (Sodium Chloride) 50 mls @ 200 mls/hr IVPB Q24H [facility] Last Admin: 03/27/17 17:42 Dose: 200 mls/hr Nicotine (Nicotine Patch 14 Mg/24 Hr*) 1 patch TRANSDERM DAILY [facility] Last Admin: 03/27/17 07:21 Dose: 1 patch Pharmacy Profile Note (Nicotine Patch Removal Note*) 1 note FOLLOW UP 2100 [facility] Last Admin: 03/26/17 21:32 Dose: 1 note Polyethylene Glycol/Electrolytes (Miralax*) 17 gm PO DAILY [facility] Last Admin: 03/27/17 14:57 Dose: 17 gm Vital Signs 03/26/17 03/26/17 03/26/17 19:39 21:30 23:45 Temperature 100.5 F 99.2 F Pulse Rate 97 83 Respiratory 20 20 16 Rate Blood Pressure 133/78 125/80 (mmHg) O2 Sat by Pulse 92 91 Oximetry 03/27/17 03/27/17 03/27/17 02:57 04:21 07:05 Temperature 98.0 F Pulse Rate 82 Respiratory 16 24 Rate Blood Pressure 135/78 (mmHg) O2 Sat by Pulse 99 90 97 Oximetry 03/27/17 03/27/17 07:44 15:38 Temperature 97.2 F 100.4 F Pulse Rate 83 88 Respiratory 24 12 Rate Blood Pressure 150/89 114/71 (mmHg) O2 Sat by Pulse 97 96 Oximetry Oxygen Devices in Use Now: Nasal Cannula - at 4L Appearance: 66 yo F in NAD, disoriented, pleasant, cooperative Eyes: No Scleral Icterus, PERRLA Ears/Nose/Mouth/Throat: NL Teeth, Lips, Gums, Mucous Membranes Moist Neck: NL Appearance and Movements; NL JVP Respiratory: Symmetrical Chest Expansion and Respiratory Effort, - - crackles at b/ bases Cardiovascular: NL Sounds; No Murmurs; No JVD, RRR Abdominal: NL Sounds; No Tenderness; No Distention Lymphatic: No Cervical Adenopathy Extremities: No Edema, No Clubbing, Cyanosis Skin: No Rash or Ulcers, No Nodules or Sclerosis Neurological: - - left hemineglect, L UE at 3+/5, L LE at 4+/5, speech clear Result Diagrams: 03/26/17 05:45 03/26/17 05:45 Additional Lab and Data: Lab Results 03/25/17 03/25/17 03/25/17 Range/Units 12:10 12:10 12:10 WBC 11.2 H (3.5-10.8) 10^3/ul RBC 4.54 (4.0-5.4) 10^6/ul Hgb 13.9 (12.0-16.0) g/dl Hct 42 (35-47) % MCV 91 (80-97) fL MCH 31 (27-31) pg MCHC 34 (31-36) g/dl RDW 15 (10.5-15) % Plt Count 186 (150-450) 10^3/ul MPV 8 (7.4-10.4) um3 Neut % (Auto) 76.6 (38-83) % Lymph % (Auto) 14.1 L (25-47) % Piute % (Auto) 8.5 (1-9) % Eos % (Auto) 0.4 (0-6) % Baso % (Auto) 0.4 (0-2) % Absolute Neuts (auto) 8.6 H (1.5-7.7) 10^3/ul Absolute Lymphs (auto) 1.6 (1.0-4.8) 10^3/ul Absolute Monos (auto) 1.0 H (0-0.8) 10^3/ul Absolute Eos (auto) 0 (0-0.6) 10^3/ul Absolute Basos (auto) 0 (0-0.2) 10^3/ul Absolute Nucleated RBC 0.01 10^3/ul Nucleated RBC % 0 INR (Anticoag Therapy) 0.88 L (0.89-1.11) APTT 30.0 (26.0-36.3) seconds Sodium 138 (133-145) mmol/L Potassium 3.8 (3.5-5.0) mmol/L Chloride 106 (101-111) mmol/L Carbon Dioxide 24 (22-32) mmol/L Anion Gap 8 (2-11) mmol/L BUN 23 (6-24) mg/dL Creatinine 0.85 (0.51-0.95) mg/dL Est GFR ( Amer) 86.3 (>60) Est GFR (Non-Af Amer) 67.1 (>60) BUN/Creatinine Ratio 27.1 H (8-20) Glucose 117 H (70-100) mg/dL Lactic Acid (0.5-2.0) mmol/L Calcium 9.4 (8.6-10.3) mg/dL Total Bilirubin 0.60 (0.2-1.0) mg/dL AST 16 (13-39) U/L ALT 10 (7-52) U/L Alkaline Phosphatase 96 (34-104) U/L Troponin I 0.01 (<0.04) ng/mL Total Protein 7.1 (6.4-8.9) g/dL Albumin 3.6 (3.2-5.2) g/dL Globulin 3.5 (2-4) g/dL Albumin/Globulin Ratio 1.0 (1-3) Triglycerides 74 mg/dL Cholesterol 230 mg/dL LDL Cholesterol 164 mg/dL HDL Cholesterol 51.2 mg/dL Urine Color Urine Appearance Urine pH (5-9) Ur Specific Winner (1.010-1.030) Urine Protein (Negative) Urine Ketones (Negative) Urine Blood (Negative) Urine Nitrate (Negative) Urine Bilirubin (Negative) Urine Urobilinogen (Negative) Ur Leukocyte Esterase (Negative) Urine WBC (Auto) (Absent) Urine RBC (Auto) (Absent) Urine Bacteria (Absent) Urine Glucose (Negative) Urine Ascorbic Acid (Negative) Blood Type Antibody Screen 09/25/17 09/25/17 09/25/17 Range/Units 12:10 12:10 12:32 WBC (3.5-10.8) 10^3/ul RBC (4.0-5.4) 10^6/ul Hgb (12.0-16.0) g/dl Hct (35-47) % MCV (80-97) fL MCH (27-31) pg MCHC (31-36) g/dl RDW (10.5-15) % Plt Count (150-450) 10^3/ul MPV (7.4-10.4) um3 Neut % (Auto) (38-83) % Lymph % (Auto) (25-47) % Piute % (Auto) (1-9) % Eos % (Auto) (0-6) % Baso % (Auto) (0-2) % Absolute Neuts (auto) (1.5-7.7) 10^3/ul Absolute Lymphs (auto) (1.0-4.8) 10^3/ul Absolute Monos (auto) (0-0.8) 10^3/ul Absolute Eos (auto) (0-0.6) 10^3/ul Absolute Basos (auto) (0-0.2) 10^3/ul Absolute Nucleated RBC 10^3/ul Nucleated RBC % INR (Anticoag Therapy) (0.89-1.11) APTT (26.0-36.3) seconds Sodium (133-145) mmol/L Potassium (3.5-5.0) mmol/L Chloride (101-111) mmol/L Carbon Dioxide (22-32) mmol/L Anion Gap (2-11) mmol/L BUN (6-24) mg/dL Creatinine (0.51-0.95) mg/dL Est GFR ( Amer) (>60) Est GFR (Non-Af Amer) (>60) BUN/Creatinine Ratio (8-20) Glucose (70-100) mg/dL Lactic Acid 0.9 (0.5-2.0) mmol/L Calcium (8.6-10.3) mg/dL Total Bilirubin (0.2-1.0) mg/dL AST (13-39) U/L ALT (7-52) U/L Alkaline Phosphatase (34-104) U/L Troponin I (<0.04) ng/mL Total Protein (6.4-8.9) g/dL Albumin (3.2-5.2) g/dL Globulin (2-4) g/dL Albumin/Globulin Ratio (1-3) Triglycerides mg/dL Cholesterol mg/dL LDL Cholesterol mg/dL HDL Cholesterol mg/dL Urine Color Cassandra Urine Appearance Cloudy Urine pH 5.0 (5-9) Ur Specific Winner 1.017 (1.010-1.030) Urine Protein 3+(>=500 mg/dl) H (Negative) Urine Ketones Negative (Negative) Urine Blood 3+ H (Negative) Urine Nitrate Negative (Negative) Urine Bilirubin Negative (Negative) Urine Urobilinogen Negative (Negative) Ur Leukocyte Esterase Negative (Negative) Urine WBC (Auto) Absent (Absent) Urine RBC (Auto) 3+(>10/hpf) H (Absent) Urine Bacteria Absent (Absent) Urine Glucose Negative (Negative) Urine Ascorbic Acid * H (Negative) Blood Type O Positive Antibody Screen Negative Microbiology and Other Data: Microbiology 03/25/17 15:40 Nasal Screen MRSA (PCR)(ALEX) - Final Nasal Mrsa Negative Assess/Plan/Problems-Billing Assessment: Mrs. Saavedra is a 66yo F with PMH of tobacco abuse, who presented to ED with left sided weakness, found to have a CVA. - Patient Problems (1) CVA (cerebral vascular accident) Comment: - Clinical presentation suggests right MCA CVA. - CTA head showed no carotid stenosis or large vessel intraluminal thrombus. There is decreased opacification and density in several branches of the right MCA. This could suggest embolic etiology. - MRI brain showed moderate sized non-hemorrhagic right MCA infarct. - Echo showed EF 55-60% and negative bubble study. - Passed her swallow eval - cont diet, Aspirin and high dose statin. - cont PT/OT eval - she'll need rehab. - Appreciate Neurology follow up. (2) UTI (urinary tract infection) Comment: Narayanan pulled out today, but UA abnormal and temp of 100.5 started empiric ceftriaxone (3) Fluid overload Comment: - IVF were discontinued on 03/26/17. cont to monitor, due to possible ongoing infection no further diuretics (4) Tobacco abuse Comment: - Nicotine patch. (5) DVT prophylaxis Comment: - SQ heparin. Status and Disposition: inpatient
[2017-03-27] MEDS: Nicotine Patch Removal NOTE FOLLOW UP SCH (22:35)
[2017-03-28] MEDS: Heparin VIAL(*) 5000 UNITS/ML VIAL (FIVE THOUSAND) SUBCUT SCH ×3 (05:54→22:03)
[2017-03-28 06:16] LABS: Hematocrit 37 % (35-47); Hemoglobin 12.9 g/dl (12.0-16.0); Mean Corpuscular HGB Conc 34 g/dl (31-36); Mean Corpuscular Hemoglobin 31 pg (27-31); Mean Corpuscular Volume 91 fL (80-97); Mean Platelet Volume 9 um3 (7.4-10.4); Red Blood Count 4.11 10^6/ul (4.0-5.4); Red Cell Distribution Width 14 % (10.5-15); White Blood Count 10.4 10^3/ul (3.5-10.8)
[2017-03-28 06:32] LABS: BUN/Creatinine Ratio 35.8 (8-20); Calcium 8.6 mg/dL (8.6-10.3); EGFR African American 91.3 (>60); Potassium 3.6 mmol/L (3.5-5.0)
[2017-03-28] MEDS: Nicotine PATCH 14 MG/24 HR* PATCH TRANSDERM SCH (08:28)
[2017-03-28] MEDS: Aspirin Low Dose CHEW TAB* 81 MG PO SCH (08:28)
[2017-03-28] MEDS: Polyethylene Glycol 3350* 17 GM PACKET PO SCH (08:31)
--- NOTE | 2017-03-28 15:51 | PN ---
Subjective Date of Service: 03/28/17 Interval History: Pt feels much better. seen sitting in a chair. Family History: Unchanged from Admission Social History: Unchanged from Admission Past Medical History: Unchanged from Admission Objective Active Medications: Acetaminophen (Tylenol Adult Liq*) 650 mg PO Q6H PRN PRN Reason: pain/fever Last Admin: 03/27/17 16:38 Dose: 650 mg Aspirin (Aspirin Low Dose Tab*) 81 mg PO DAILY [facility] Last Admin: 03/28/17 08:28 Dose: 81 mg Atorvastatin Calcium (Lipitor*) 80 mg PO 1700 [facility] Last Admin: 03/27/17 16:39 Dose: 80 mg Heparin Sodium (Porcine) (Heparin Vial(*)) 5,000 units SUBCUT Q8HR [facility] Last Admin: 03/28/17 13:27 Dose: 5,000 units Hydralazine HCl (Apresoline Iv*) 10 mg IV Q4H PRN PRN Reason: Systolic >180 Ceftriaxone Sodium 1,000 mg/ (Sodium Chloride) 50 mls @ 200 mls/hr IVPB Q24H [facility] Last Admin: 03/27/17 17:42 Dose: 200 mls/hr Nicotine (Nicotine Patch 14 Mg/24 Hr*) 1 patch TRANSDERM DAILY [facility] Last Admin: 03/28/17 08:28 Dose: 1 patch Pharmacy Profile Note (Nicotine Patch Removal Note*) 1 note FOLLOW UP 2100 [facility] Last Admin: 03/27/17 22:35 Dose: 1 note Polyethylene Glycol/Electrolytes (Miralax*) 17 gm PO DAILY [facility] Last Admin: 03/28/17 08:31 Dose: Not Given Vital Signs 03/27/17 03/27/17 03/27/17 19:15 20:15 23:23 Temperature 98.2 F 97.7 F Pulse Rate 84 77 Respiratory 17 18 20 Rate Blood Pressure 106/62 105/66 (mmHg) O2 Sat by Pulse 91 92 96 Oximetry 03/28/17 03/28/17 03/28/17 01:36 03:55 07:48 Temperature 97.9 F 97.2 F Pulse Rate 72 76 Respiratory 20 20 Rate Blood Pressure 114/75 109/67 (mmHg) O2 Sat by Pulse 96 95 95 Oximetry 03/28/17 03/28/17 03/28/17 08:00 09:32 11:23 Temperature 97.7 F Pulse Rate 78 Respiratory 20 20 Rate Blood Pressure 108/80 (mmHg) O2 Sat by Pulse 95 97 99 Oximetry Oxygen Devices in Use Now: Nasal Cannula - at 2L Appearance: 66 yo f in nAD, AAOx2 Eyes: No Scleral Icterus, PERRLA Ears/Nose/Mouth/Throat: NL Teeth, Lips, Gums, Mucous Membranes Moist Neck: NL Appearance and Movements; NL JVP, Trachea Midline Respiratory: Symmetrical Chest Expansion and Respiratory Effort, - - crackles at b/l bases Cardiovascular: NL Sounds; No Murmurs; No JVD, RRR Abdominal: NL Sounds; No Tenderness; No Distention, No Hepatosplenomegaly Lymphatic: No Cervical Adenopathy Extremities: No Edema, No Clubbing, Cyanosis Skin: No Rash or Ulcers, No Nodules or Sclerosis Neurological: - - left hemineglect left sided weakness-unchanged Result Diagrams: 03/28/17 05:31 03/28/17 05:31 Additional Lab and Data: Lab Results 03/25/17 03/25/17 03/25/17 Range/Units 12:10 12:10 12:10 WBC 11.2 H (3.5-10.8) 10^3/ul RBC 4.54 (4.0-5.4) 10^6/ul Hgb 13.9 (12.0-16.0) g/dl Hct 42 (35-47) % MCV 91 (80-97) fL MCH 31 (27-31) pg MCHC 34 (31-36) g/dl RDW 15 (10.5-15) % Plt Count 186 (150-450) 10^3/ul MPV 8 (7.4-10.4) um3 Neut % (Auto) 76.6 (38-83) % Lymph % (Auto) 14.1 L (25-47) % Garvin % (Auto) 8.5 (1-9) % Eos % (Auto) 0.4 (0-6) % Baso % (Auto) 0.4 (0-2) % Absolute Neuts (auto) 8.6 H (1.5-7.7) 10^3/ul Absolute Lymphs (auto) 1.6 (1.0-4.8) 10^3/ul Absolute Monos (auto) 1.0 H (0-0.8) 10^3/ul Absolute Eos (auto) 0 (0-0.6) 10^3/ul Absolute Basos (auto) 0 (0-0.2) 10^3/ul Absolute Nucleated RBC 0.01 10^3/ul Nucleated RBC % 0 INR (Anticoag Therapy) 0.88 L (0.89-1.11) APTT 30.0 (26.0-36.3) seconds Sodium 138 (133-145) mmol/L Potassium 3.8 (3.5-5.0) mmol/L Chloride 106 (101-111) mmol/L Carbon Dioxide 24 (22-32) mmol/L Anion Gap 8 (2-11) mmol/L BUN 23 (6-24) mg/dL Creatinine 0.85 (0.51-0.95) mg/dL Est GFR ( Amer) 86.3 (>60) Est GFR (Non-Af Amer) 67.1 (>60) BUN/Creatinine Ratio 27.1 H (8-20) Glucose 117 H (70-100) mg/dL Lactic Acid (0.5-2.0) mmol/L Calcium 9.4 (8.6-10.3) mg/dL Total Bilirubin 0.60 (0.2-1.0) mg/dL AST 16 (13-39) U/L ALT 10 (7-52) U/L Alkaline Phosphatase 96 (34-104) U/L Troponin I 0.01 (<0.04) ng/mL Total Protein 7.1 (6.4-8.9) g/dL Albumin 3.6 (3.2-5.2) g/dL Globulin 3.5 (2-4) g/dL Albumin/Globulin Ratio 1.0 (1-3) Triglycerides 74 mg/dL Cholesterol 230 mg/dL LDL Cholesterol 164 mg/dL HDL Cholesterol 51.2 mg/dL Urine Color Urine Appearance Urine pH (5-9) Ur Specific Freeland (1.010-1.030) Urine Protein (Negative) Urine Ketones (Negative) Urine Blood (Negative) Urine Nitrate (Negative) Urine Bilirubin (Negative) Urine Urobilinogen (Negative) Ur Leukocyte Esterase (Negative) Urine WBC (Auto) (Absent) Urine RBC (Auto) (Absent) Urine Bacteria (Absent) Urine Glucose (Negative) Urine Ascorbic Acid (Negative) Blood Type Antibody Screen 09/03/25/17 03/25/17 Range/Units 12:10 12:10 12:32 WBC (3.5-10.8) 10^3/ul RBC (4.0-5.4) 10^6/ul Hgb (12.0-16.0) g/dl Hct (35-47) % MCV (80-97) fL MCH (27-31) pg MCHC (31-36) g/dl RDW (10.5-15) % Plt Count (150-450) 10^3/ul MPV (7.4-10.4) um3 Neut % (Auto) (38-83) % Lymph % (Auto) (25-47) % Garvin % (Auto) (1-9) % Eos % (Auto) (0-6) % Baso % (Auto) (0-2) % Absolute Neuts (auto) (1.5-7.7) 10^3/ul Absolute Lymphs (auto) (1.0-4.8) 10^3/ul Absolute Monos (auto) (0-0.8) 10^3/ul Absolute Eos (auto) (0-0.6) 10^3/ul Absolute Basos (auto) (0-0.2) 10^3/ul Absolute Nucleated RBC 10^3/ul Nucleated RBC % INR (Anticoag Therapy) (0.89-1.11) APTT (26.0-36.3) seconds Sodium (133-145) mmol/L Potassium (3.5-5.0) mmol/L Chloride (101-111) mmol/L Carbon Dioxide (22-32) mmol/L Anion Gap (2-11) mmol/L BUN (6-24) mg/dL Creatinine (0.51-0.95) mg/dL Est GFR ( Amer) (>60) Est GFR (Non-Af Amer) (>60) BUN/Creatinine Ratio (8-20) Glucose (70-100) mg/dL Lactic Acid 0.9 (0.5-2.0) mmol/L Calcium (8.6-10.3) mg/dL Total Bilirubin (0.2-1.0) mg/dL AST (13-39) U/L ALT (7-52) U/L Alkaline Phosphatase (34-104) U/L Troponin I (<0.04) ng/mL Total Protein (6.4-8.9) g/dL Albumin (3.2-5.2) g/dL Globulin (2-4) g/dL Albumin/Globulin Ratio (1-3) Triglycerides mg/dL Cholesterol mg/dL LDL Cholesterol mg/dL HDL Cholesterol mg/dL Urine Color Cassandra Urine Appearance Cloudy Urine pH 5.0 (5-9) Ur Specific Freeland 1.017 (1.010-1.030) Urine Protein 3+(>=500 mg/dl) H (Negative) Urine Ketones Negative (Negative) Urine Blood 3+ H (Negative) Urine Nitrate Negative (Negative) Urine Bilirubin Negative (Negative) Urine Urobilinogen Negative (Negative) Ur Leukocyte Esterase Negative (Negative) Urine WBC (Auto) Absent (Absent) Urine RBC (Auto) 3+(>10/hpf) H (Absent) Urine Bacteria Absent (Absent) Urine Glucose Negative (Negative) Urine Ascorbic Acid * H (Negative) Blood Type O Positive Antibody Screen Negative Microbiology and Other Data: Microbiology 03/25/17 15:40 Nasal Screen MRSA (PCR)(ALEX) - Final Nasal Mrsa Negative Assess/Plan/Problems-Billing Assessment: Mrs. Saavedra is a 66yo F with PMH of tobacco abuse, who presented to ED with left sided weakness, found to have a CVA. - Patient Problems (1) CVA (cerebral vascular accident) Comment: - Clinical presentation suggests right MCA CVA. - CTA head showed no carotid stenosis or large vessel intraluminal thrombus. There is decreased opacification and density in several branches of the right MCA. This could suggest embolic etiology. - MRI brain showed moderate sized non-hemorrhagic right MCA infarct. - Echo showed EF 55-60% and negative bubble study. - Passed her swallow eval - cont diet, Aspirin and high dose statin. - cont PT/OT eval - she'll need rehab. - Appreciate Neurology follow up. (2) UTI (urinary tract infection) Comment: Narayanan pulled out on 03/27/17, Cx positive for E.coli New dx with UTI-Narayanan associated (3) Fluid overload Comment: - IVF were discontinued on 03/26/17. cont to monitor, due to possible ongoing infection no further diuretics (4) Tobacco abuse Comment: - Nicotine patch. (5) DVT prophylaxis Comment: - SQ heparin. Status and Disposition: inpatient. Awaiting insurance to be able to apply for SNF
[2017-03-28] MEDS: Atorvastatin* 80 MG TAB PO SCH (17:13)
[2017-03-28] MEDS: cefTRIAXone VIAL(*) 1,000 MG in NS 0.9% 50 ML* 50 ML IVPB SCH (18:14)
[2017-03-28] MEDS: Nicotine Patch Removal NOTE FOLLOW UP SCH (22:02)
[2017-03-29] MEDS: Heparin VIAL(*) 5000 UNITS/ML VIAL (FIVE THOUSAND) SUBCUT SCH ×2 (06:19→14:39)
[2017-03-29] MEDS: Polyethylene Glycol 3350* 17 GM PACKET PO SCH (11:16)
[2017-03-29] MEDS: Aspirin Low Dose CHEW TAB* 81 MG PO SCH (11:16)
[2017-03-29] MEDS: Nicotine PATCH 14 MG/24 HR* PATCH TRANSDERM SCH (11:21)
[2017-03-29 12:37] VITALS: BP 125/84
--- NOTE | 2017-03-29 15:25 | DS ---
CC: [facility] * DISCHARGE SUMMARY: DATE OF ADMISSION: 03/25/17 DATE OF DISCHARGE: 03/29/17 PRIMARY CARE PROVIDER: None. DISCHARGE DIAGNOSES: 1. Right MCA distribution acute ischemic stroke or residual left-sided weakness. 2. Ongoing tobacco abuse. 3. Dyslipidemia. SECONDARY DIAGNOSIS: None. MEDICATIONS AT DISCHARGE: Include: 1. Aspirin 81 mg daily. 2. Atorvastatin 80 mg daily. 3. Tylenol on a p.r.n. basis. 4. Cefdinir 300 mg b.i.d. 5. Nicotine patch 14 mg daily. LABORATORY DATA AND STUDIES PERFORMED DURING THE HOSPITAL STAY: Included: On , white blood cell count 10.5, hemoglobin of 12.9, hematocrit of 37, and platelets of 151,000. Sodium of 135, potassium 3.6, chloride 101, carbon dioxide 28, BUN was actually 29, and creatinine 0.81. The patient's cholesterol profile showed triglycerides 74, cholesterol 230, LDL of 164, HDL of 51. The patient urinalysis on 03/27/[address] in place showed +3 protein, +3 blood, +1 esterase, +3 white blood cells and +3 bacteria. Subsequent urine cultures are positive for over 100,[address] angiogram of the head obtained on 03/25/17, impression: "Findings consistent with an acute to subacute right middle cerebral artery infarct. No evidence for carotid stenosis or large vessel intraluminal thrombus. There is decreased opacification and density in several branches of the right middle cerebral artery." A brain MRI obtained on 03/25/17, impression: "Moderate sized nonhemorrhagic right middle cerebral artery territory infarct. Findings consistent with mild chronic small vessel ischemic changes." The patient's transthoracic echocardiogram obtained on the same day showed EF of 55% to 60% with negative bubble study, trace mitral regurgitation, and trace tricuspid regurgitation. CONSULTATIONS DURING THE HOSPITAL STAY: Include Dr. Prado from Neurology. HOSPITALIZATION COURSE: Haroldo Saavedra is a 66-year-old female with history of smoking who just relocated to [place] to be closer with her family from [place]. She came into our facility after she was noted to have sudden onset left-sided weakness and dysarthria. That occurred upon awakening and due to that, she was not a TPA candidate. She was admitted to telemetry monitored floor and she continued to have significant left-sided weakness. Her workup was obtained as above, which showed no evidence of cardioembolic stroke. No carotid artery disease that was significant. The patient also had no arrhythmias noted on telemetry monitoring. She was placed on aspirin and high dose statin and followed by Neurology. By the time of discharge to [facility], the patient continues to have significant left-sided weakness and hemineglect. Due to that, the patient cannot really cooperate well with exam on the left side. Due to her hemineglect, it is difficult to evaluate, but the patient does have significantly good, actually spontaneous movement in the left lower extremity and left upper extremity is impaired approximately at 3.5/5. Once again, cooperation is a problem. Please also note that the patient had a Narayanan placed in the emergency room and later on developed low-grade fevers and lethargy. It was noted that she had hematuria and her urinalysis was grossly abnormal. Urine cultures grew E. coli. The patient was treated with ceftriaxone with good results and she is going to be continued on cefdinir at [facility]. PHYSICAL EXAMINATION AT THE TIME OF DISCHARGE: Blood pressure 125/84, heart rate 83 and regular, respiratory rate 24, oxygen saturation 96% on room air, temperature 97.9. General: The patient is a very pleasant 66-year-old female, who is in no acute distress. The patient is alert, awake, and oriented x2. HEENT: Head atraumatic, normocephalic. Eyes: Pupils are equal, reactive to light and accommodation. Oropharynx clear. Mucosa moist. Neck: Supple. No JVD, no bruits bilaterally. Cardiovascular: Regular rate and rhythm. No murmur. Respiratory: Clear to auscultation bilaterally. Abdomen: Soft, nontender. Bowel sounds are present in all 4 quadrants. Extremities: There is no edema. Pulses +2 bilaterally. No clubbing or cyanosis. Neuro Evaluation : Speech clear. Cranial nerves II through XII grossly intact. The patient has left-sided hemineglect and left upper extremity weakness of 3+/5. Left lower extremity weakness is at 4+/5, but due to hemineglect, it is difficult to evaluate. The patient had been unable to ambulate due to her significant left- sided weakness at discharge. The patient is being discharged to [facility]. Recommendation to follow up with the physician there. Please note that this is a short summary of the patient's hospitalization. Please refer to further medical records for details. TIME SPENT: Approximately 45 minutes were spent on the patient's discharge. [id number]/[facility] #: [id number] MTDD
== END 2017-03-29 15:45 | DRG 65 ==
LOC: ED 11:45 → ICU 14:16 → MEDTELE 03-26 13:12
PROVIDERS: ADMIT Internal Medicine; ATTEND Internal Medicine
DX: I63.511 Cerebral infarction due to unspecified occlusion or stenosis of right middle cerebral artery (principal); G81.94 Hemiplegia, unspecified affecting left nondominant side; N39.0 Urinary tract infection, site not specified; R47.1 Dysarthria and anarthria; F17.210 Nicotine dependence, cigarettes, uncomplicated; E78.5 Hyperlipidemia, unspecified; B96.20 Unspecified Escherichia coli [E. coli] as the cause of diseases classified elsewhere; R31.0 Gross hematuria; Z80.6 Family history of leukemia; Z82.49 Family history of ischemic heart disease and other diseases of the circulatory system; E87.70 Fluid overload, unspecified
CPT/HCPCS: 36415; 70450; 70496; 70498; 70551; 71010; 80048; 80053; 80061; 81003; 81015; 83605; 84484; 85025; 85610; 85730; 86850; 86900; 86901; 87077; 87086; 87186; 87641; 93005; 93306; 94760; A9270-GY; J0696; J1644; J1940; Q9967

== ENCOUNTER 2017-08-01 18:02 | Emergency (ER) | payer MEDICARE ==
[2017-08-01] MEDS ORDERED: NS 0.9% 1000 ML* 1,000 ML IV ONE ×2 (19:00→20:22)
[2017-08-01 19:27] LABS: ABS Basophils 0.1 10^3/ul (0-0.2); ABS Eosinophils 0 10^3/ul (0-0.6); ABS Monocytes 1.3 10^3/ul (0-0.8); ABS Nucleated RBC 0 10^3/ul; Eosinophil % 0.1 % (0-6); Hematocrit 44 % (35-47); Hemoglobin 14.6 g/dl (12.0-16.0); Lymphocyte % 4.5 % (25-47); Mean Corpuscular HGB Conc 33 g/dl (31-36); Mean Corpuscular Hemoglobin 31 pg (27-31); Mean Corpuscular Volume 91 fL (80-97); Mean Platelet Volume 7 um3 (7.4-10.4); Nucleated Red Blood Cells % 0; Platelet Count 185 10^3/ul (150-450); Red Cell Distribution Width 15 % (10.5-15); White Blood Count 22.4 10^3/ul (3.5-10.8)
[2017-08-01 19:41] LABS: EGFR Non-African American 50.4 (>60)
[2017-08-01 19:46] LABS: INR 0.92 (0.77-1.02)
[2017-08-01] MEDS ORDERED: Pantoprazole IV* 40 MG IV ONE (21:02)
[2017-08-01 22:53] VITALS: BP 159/86
--- NOTE | 2017-08-02 10:48 | ED ---
Roberto Carlos Carter Jennifer, scribed for Kareem Lea MD on 08/01/17 at 1907 . GI/ HPI - HPI Summary HPI Summary: The patient is a 66 year old female who presents with black stools that began today. She additionally complains of a sharp pain in the abdomen that shes never had before and hematemesis. The patient denies nausea. - History of Current Complaint Chief Complaint: EDGIBleed Time Seen by Provider: 08/01/17 18:40 Stated Complaint: ABD PAIN/VOMITING Hx Obtained From: Patient Onset/Duration: Started Hours Ago - Began today, Still Present Timing: Constant Severity: Mild Current Severity: Mild Pain Intensity: 5 Pain Characteristics: Sharp Associated Signs and Symptoms: Positive: Black Tarry Stool, Other: - Hematamesis Additional Signs & Symptoms: Positive: Other: - Hematamesis Aggravating Factor(s): Nothing Alleviating Factor(s): Nothing - Additional Pertinent History Primary Care Physician: [id number] - Allergy/Home Medications Allergies/Adverse Reactions: Allergies Allergy/AdvReac Type Severity Reaction Status Date / Time No Known Allergies Allergy Verified 03/25/17 12:08 PMH/Surg Hx/FS Hx/Imm Hx Endocrine/Hematology History: Denies: Hx Diabetes Cardiovascular History: Reports: Hx Syncope - light headedness and fell on bed/ per son a week ago (03/18), Other Cardiovascular Problems/Disorders - Dr. Westfall PCP Denies: Hx Hypertension, Hx Pacemaker/ICD History: Denies: Hx Renal Disease Musculoskeletal History: Reports: Hx Back Problems - chronic back pain, Other Musculoskeletal History - chronic left knee pain Sensory History: Denies: Hx Contacts or Glasses, Hx Legally Blind, Hx Deafness, Hx Hearing Aid Opthamlomology History: Denies: Hx Contacts or Glasses, Hx Legally Blind Psychiatric History: Denies: Hx Panic Disorder - Surgical History Surgery Procedure, Year, and Place: appendectomy - 25 years ago Hx Anesthesia Reactions: No Infectious Disease History: No Infectious Disease History: Denies: Traveled Outside the [place] in Last 30 Days - Family History Known Family History: Positive: Hypertension - Social History Alcohol Use: Rare Hx Substance Use: No Substance Use Type: Reports: None Hx Tobacco Use: Yes Smoking Status (MU): Former Smoker Type: Cigarettes Review of Systems Positive: Abdominal Pain. Negative: Nausea Genitourinary: Other - Hematemesis, black stools All Other Systems Reviewed And Are Negative: Yes Physical Exam - Summary Physical Exam Summary: Appearance: The patient is well-nourished in no acute distress and in no acute pain. Skin: The skin is warm and dry and skin color reflects adequate perfusion. HEENT: ~The head is normocephalic and atraumatic. The pupils are equal and reactive. The conjunctivae are clear and without drainage. ~Nares are patent and without drainage. ~Mouth reveals moist mucous membranes and the throat is without erythema and exudate. ~The external ears are intact. The ear canals are patent and without drainage. The tympanic membranes are intact. Neck: the neck is supple with full range of motion and non-tender. There are no carotid bruits. ~There is no neck vein distension. Respiratory: Chest is non-tender. ~Lungs are clear to auscultation and breath sounds are symmetrical and equal. Cardiovascular: Heart is regular rate and rhythm. ~There is no murmur or rub auscultated. ~~There is no peripheral edema and pulses are symmetrical and equal. Abdomen: The abdomen is soft and non-tender. ~There are normal bowel sounds heard in all four quadrants and there is no organomegaly palpated. Musculoskeletal: There is no back tenderness noted. ~Extremities are non-tender with full range of motion. ~There is good capillary refill. ~There is no peripheral edema or calf tenderness elicited. Neurological: Patient is alert and oriented to person, place and time. ~The patient has symmetrical motor strength in all four extremities. ~Cranial nerves are grossly intact. Deep tendon reflexes are symmetrical and equal in all four extremities. Psychiatric: The patient has an appropriate affect and does not exhibit any anxiety or depression. Triage Information Reviewed: Yes Vital Signs On Initial Exam: Initial Vitals Temp Pulse Resp BP Pulse Ox 97.4 F 91 22 138/96 95 08/01/17 18:03 08/01/17 18:03 08/01/17 18:03 08/01/17 18:03 08/01/17 18:03 Vital Signs Reviewed: Yes Diagnostics - Vital Signs Vital Signs Temp Pulse Resp BP Pulse Ox 08/01/17 18:30 88 20 132/92 97 08/01/17 18:09 22 08/01/17 18:06 138/96 08/01/17 18:03 97.4 F 91 22 138/96 95 - Laboratory Lab Results: Lab Results 08/01/17 08/01/17 08/01/17 Range/Units 19:17 19:17 19:17 WBC 22.4 H (3.5-10.8) 10^3/ul RBC 4.80 (4.0-5.4) 10^6/ul Hgb 14.6 (12.0-16.0) g/dl Hct 44 (35-47) % MCV 91 (80-97) fL MCH 31 (27-31) pg MCHC 33 (31-36) g/dl RDW 15 (10.5-15) % Plt Count 185 (150-450) 10^3/ul MPV 7 L (7.4-10.4) um3 Neut % (Auto) 89.1 H (38-83) % Lymph % (Auto) 4.5 L (25-47) % [place] % (Auto) 5.7 (1-9) % Eos % (Auto) 0.1 (0-6) % Baso % (Auto) 0.6 (0-2) % Absolute Neuts (auto) 20.0 H (1.5-7.7) 10^3/ul Absolute Lymphs (auto) 1.0 (1.0-4.8) 10^3/ul Absolute Monos (auto) 1.3 H (0-0.8) 10^3/ul Absolute Eos (auto) 0 (0-0.6) 10^3/ul Absolute Basos (auto) 0.1 (0-0.2) 10^3/ul Absolute Nucleated RBC 0 10^3/ul Nucleated RBC % 0 INR (Anticoag Therapy) 0.92 (0.77-1.02) APTT 28.9 (26.0-36.3) seconds Sodium 131 L (133-145) mmol/L Potassium 4.0 (3.5-5.0) mmol/L Chloride 99 L (101-111) mmol/L Carbon Dioxide 24 (22-32) mmol/L Anion Gap 8 (2-11) mmol/L BUN 40 H (6-24) mg/dL Creatinine 1.09 H (0.51-0.95) mg/dL Est GFR ( Amer) 64.8 (>60) Est GFR (Non-Af Amer) 50.4 (>60) BUN/Creatinine Ratio 36.7 H (8-20) Glucose 143 H (70-100) mg/dL Calcium 8.4 L (8.6-10.3) mg/dL Total Bilirubin 0.50 (0.2-1.0) mg/dL AST 13 (13-39) U/L ALT 13 (7-52) U/L Alkaline Phosphatase 81 (34-104) U/L Total Protein 6.2 L (6.4-8.9) g/dL Albumin 3.0 L (3.2-5.2) g/dL Globulin 3.2 (2-4) g/dL Albumin/Globulin Ratio 0.9 L (1-3) Blood Type Antibody Screen 08/01/17 Range/Units 19:17 WBC (3.5-10.8) 10^3/ul RBC (4.0-5.4) 10^6/ul Hgb (12.0-16.0) g/dl Hct (35-47) % MCV (80-97) fL MCH (27-31) pg MCHC (31-36) g/dl RDW (10.5-15) % Plt Count (150-450) 10^3/ul MPV (7.4-10.4) um3 Neut % (Auto) (38-83) % Lymph % (Auto) (25-47) % [place] % (Auto) (1-9) % Eos % (Auto) (0-6) % Baso % (Auto) (0-2) % Absolute Neuts (auto) (1.5-7.7) 10^3/ul Absolute Lymphs (auto) (1.0-4.8) 10^3/ul Absolute Monos (auto) (0-0.8) 10^3/ul Absolute Eos (auto) (0-0.6) 10^3/ul Absolute Basos (auto) (0-0.2) 10^3/ul Absolute Nucleated RBC 10^3/ul Nucleated RBC % INR (Anticoag Therapy) (0.77-1.02) APTT (26.0-36.3) seconds Sodium (133-145) mmol/L Potassium (3.5-5.0) mmol/L Chloride (101-111) mmol/L Carbon Dioxide (22-32) mmol/L Anion Gap (2-11) mmol/L BUN (6-24) mg/dL Creatinine (0.51-0.95) mg/dL Est GFR ( Amer) (>60) Est GFR (Non-Af Amer) (>60) BUN/Creatinine Ratio (8-20) Glucose (70-100) mg/dL Calcium (8.6-10.3) mg/dL Total Bilirubin (0.2-1.0) mg/dL AST (13-39) U/L ALT (7-52) U/L Alkaline Phosphatase (34-104) U/L Total Protein (6.4-8.9) g/dL Albumin (3.2-5.2) g/dL Globulin (2-4) g/dL Albumin/Globulin Ratio (1-3) Blood Type O Positive Antibody Screen Negative Result Diagrams: 08/01/17 19:17 08/01/17 19:17 Lab Statement: Any lab studies that have been ordered have been reviewed, and results considered in the medical decision making process. - EKG 1859 Cardiac Rate: NL EKG Rhythm: Sinus Rhythm - 90 bpm EKG Interpretation: Non specific anterolateral changes GIGU Course/Dx - Course Course Of Treatment: Ms. [place] where [place] convalescing from a CVA which has left her with some LUE weakness and a left kayley-neglect. She C/O 'd sharp epigastric pain and black stools that started today. Her H&H was OK but she was mildly dehydrated and we gave her IV NS as well as protonix. She slept and felt better. This will need to be watched closely as she may get worse and need a GI intervention. I will start her on Prilosec in the meantime. - Diagnoses Differential Diagnoses - Female: Other - epigastric pain Provider Diagnoses: Epigastric pain, GI bleed Discharge - Discharge Plan Condition: Stable Disposition: HOME Prescriptions: Omeprazole CAP* [Prilosec CAP* 20 MG] 20 mg PO BID #20 cap. Patient Education Materials: Epigastric Pain (ED) Referrals: [facility] [Outside] (Follow up with your PCP next week.) Additional Instructions: Follow up with your PCP next week. Return to the ED for new or worsening symptoms. The documentation as recorded by the scribe, Azevedo,Isabel accurately reflects the service I personally performed and the decisions made by me, Kareem Lea MD.
== END 2017-08-01 22:56 | disposition home or self-care (01) ==
LOC: ED 18:02
DX: K92.2 Gastrointestinal hemorrhage, unspecified (principal); R10.13 Epigastric pain; I69.354 Hemiplegia and hemiparesis following cerebral infarction affecting left non-dominant side; Z87.891 Personal history of nicotine dependence
CPT/HCPCS: 36415; 80053; 85025; 85610; 85730; 86850; 86900; 86901; 93005; 96361; 96365; 99284

== ENCOUNTER 2017-09-04 07:55 | Inpatient (IN) | payer MEDICARE ==
[2017-09-04] MEDS ORDERED: NS 0.9% 1000 ML* 1,000 ML IV ONE (07:56)
[2017-09-04] MEDS ORDERED: LORazepam INJ* 2 MG/ML 1 ML VIAL ONE (08:06)
[2017-09-04] MEDS ORDERED: LORazepam INJ* 2 MG/ML 1 ML VIAL IV PUSH ONE (08:08)
--- NOTE | 2017-09-04 08:20 | RAD ---
INDICATION: Neurologic change. Code reddy. COMPARISON: CT brain March 25, 2017 TECHNIQUE: Noncontrast axial source images were acquired from the skull base to the vertex. FINDINGS: Ventricles/sulci: There is cortical atrophy with compensatory dilatation of the CSF spaces. Brain parenchyma: There is no acute focal parenchymal finding, evidence of intracranial mass, or intracranial mass effect. There is encephalomalacia in the distribution of the right middle cerebral artery at the site of previous right MCA distribution infarct Intracranial hemorrhage:None. Extra-axial spaces: There are no abnormal extra axial fluid collections or evidence of extra-axial mass. Calvarium: There is no calvarial fracture or other calvarial abnormality. Scalp: There is no evidence of scalp or extracalvarial soft tissue abnormality. Paranasal sinuses/mastoid: The paranasal sinuses and mastoid air cells are clear. Other: There are bilateral basal ganglia calcifications. 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 NO ACUTE INTRACRANIAL FINDINGS. FINDINGS: To ED at 0815 hours
[2017-09-04 08:25] LABS: ABS Basophils 0.1 10^3/ul (0-0.2); ABS Eosinophils 0.4 10^3/ul (0-0.6); ABS Lymphocytes 4.2 10^3/ul (1.0-4.8); ABS Monocytes 1.4 10^3/ul (0-0.8); ABS Neutrophils 10.9 10^3/ul (1.5-7.7); ABS Nucleated RBC 0 10^3/ul; Eosinophil % 2.1 % (0-6); Hematocrit 37 % (35-47); Hemoglobin 12.4 g/dl (12.0-16.0); Lymphocyte % 24.8 % (25-47); Mean Corpuscular HGB Conc 34 g/dl (31-36); Mean Corpuscular Hemoglobin 31 pg (27-31); Mean Corpuscular Volume 91 fL (80-97); Mean Platelet Volume 8 um3 (7.4-10.4); Nucleated Red Blood Cells % 0; Platelet Count 245 10^3/ul (150-450); Red Blood Count 4.05 10^6/ul (4.0-5.4); Red Cell Distribution Width 15 % (10.5-15)
[2017-09-04 08:32] LABS: INR 0.9 (0.77-1.02)
[2017-09-04] MEDS ORDERED: Labetalol IV* 5 MG/ML 20 ML VIAL IV PUSH ONE (08:44)
[2017-09-04] MEDS ORDERED: levETIRAcetam IV* 1,000 MG in NS 0.9% 100 ML* 100 ML IVPB SCH (09:00)
--- NOTE | 2017-09-04 09:02 | RAD ---
HISTORY: Unresponsive COMPARISONS: March 25, 2017 VIEWS: 1: frontal portable view of the chest at 8:33 AM FINDINGS: LINES AND TUBES: None. CARDIOMEDIASTINAL SILHOUETTE: The aorta is tortuous. There is widening of the mediastinal silhouette when compared to the March 25, 2017 examination. PLEURA: The costophrenic angles are sharp. No pleural abnormalities are noted. LUNG PARENCHYMA: The lungs are clear. ABDOMEN: The upper abdomen is clear. There is no subphrenic gas. BONES AND SOFT TISSUES: Degenerative changes are noted of the spine. IMPRESSION: THE AORTA IS TORTUOUS WITH NEW WIDENING OF THE MEDIASTINUM WHICH IS CONCERNING FOR ACUTE AORTIC PATHOLOGY, INCLUDING DISSECTION, GIVEN THE HISTORY OF UNRESPONSIVE PATIENT. CONSIDERATION OF CT ANGIOGRAPHY OF THE CHEST. THIS REQUISITION WAS DISCUSSED WITH DR. KWONG IN THE EMERGENCY DEPARTMENT AT APPROXIMATELY 8:58 AM ON SEPTEMBER 04, 2017.
[2017-09-04 09:26] LABS: EGFR Non-African American 59.8 (>60)
[2017-09-04] MEDS ORDERED: Iodixanol* (CONTRAST) 320 MG/ML 100 ML SDV IV ONE (09:36)
[2017-09-04 09:45] LABS: Urine Appearance Clear; Urine Blood 3+ (Negative); Urine Color Yellow; Urine Ketones Negative (Negative); Urine Protein 2+(100 mg/dL) (Negative); Urine Specific Gravity 1.013 (1.010-1.030); Urine Urobilinogen Negative (Negative)
--- NOTE | 2017-09-04 10:23 | RAD ---
INDICATION: Evaluate for aortic aneurysm or dissection. Abnormal chest x-ray. Change in mental status. History of CVA. COMPARISON: Chest x-ray same date; chest x-ray March 25, 2017 TECHNIQUE: Axial source images were obtained from the thoracic inlet to the hemidiaphragms following administration of 100 mL [address] angiographic technique was utilized. Coronal and sagittal reconstructed images were acquired. CHEST FINDINGS: Neck/thyroid: The visualized neck to include the thyroid appear normal. Chest wall: There are no acute abnormalities of the bony thorax or chest wall. There is no supraclavicular, infraclavicular, or axillary lymphadenopathy. Lungs : There are no pulmonary parenchymal masses. There is basilar atelectasis. The pulmonary interstitium appears prominent likely related to interstitial edema. There are no endobronchial lesions. Cardiomediastinal structures: There is no CT evidence of acute pulmonary embolic disease. The heart is normal in size. There is no pericardial effusion. There is no evidence of aortic aneurysm or dissection. The apparent change in the chest radiograph is likely related to rotation of the image. There is uncoiling and ectasia of the thoracic aorta. The aortic root measures 3.7 cm. 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 The right aneurysm measures approximately 2.0 x 1.3 cm and the left proximally 1.5 x 1.0 cm There is no mediastinal or hilar adenopathy. The esophagus appears normal. Pleura : There are small bilateral effusions. Other: None. IMPRESSION: 1. NO EVIDENCE OF AORTIC ANEURYSM OR DISSECTION. ECTATIC THORACIC AORTA WITH MILD UNCOILING. 2. 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 THIS IS AN INCIDENTAL FINDING. 3. INTERSTITIAL CONGESTION WITH BASILAR ATELECTASIS AND SMALL BILATERAL PLEURAL EFFUSIONS.
[2017-09-04] MEDS: NS 0.9% 1000 ML* 1,000 ML IV SCH ×2 (11:30→23:23)
--- NOTE | 2017-09-04 13:25 | HP ---
H&P (Free Text) History and Physical: CRITICAL CARE MEDICINE DATE: 09/04/17 TIME: 1200 PRIMARY CARE PROVIDER: Adrián REFERRING PROVIDER: James REASON/CHIEF COMPLAINT: seizure HISTORY OF PRESENT ILLNESS: 66 yo F with h/o large Right MCA Cva in mar 2017 with residual left hemiparesis and neglect, but seems to communicate well at new baseline. Seen this am with seizure and altered mentation at snf. eyes deviated up and to the right. no valium available and ems summonded. another seiuzre and not returning to baseline. given keppra and ativan ultimately in ed and a further witnessed seizure. Neuro eval. EEG read pending. No acute changes on ct. mri pending. REVIEW OF SYSTEMS: As per HPI. Limted sec to acuity. last known nml unclear PAST MEDICAL HISTORY: As per HPI. h/o uti MEDICATIONS: Reviewed. asa, ppi, statin. ALLERGIES: Reviewed. None. SOCIAL HISTORY: Reviewed. FAMILY HISTORY: Noncontributory at present. PHYSICAL EXAM: Vital Signs: Reviewed. Neurologic: she was obtunded post rx. eyes midline for me and reactive. mild grimace to pain and movement of right side slowly. later she was startling to voice. HEENT: nasal trumpet placed at time of my eval as clearly has some mild to mod obstruction now with obtundation. Maintain airway otherwise. mm dry Cardiovascular: S1 S2, bp initially elevated and blunted with labetalol Respiratory: rate up and overcoming obstruction. Mod rhonchi in Right base. Abdomen: soft, nt Extremities: warm Access: piv LABS: Reviewed. IMAGING: Reviewed. MEDICATIONS: Reviewed. ASSESSMENT: 66 F Status epilepticus h/o R MCA CVA PLAN: Neurologic: neuro eval. post rx now. eeg pending. more post ictal now. needs icu monitoring. plan for mri, mra. Cardiovascular: had contrast ct without acute path. perfusing. hr up a bit with dynamics. ok not to blunt bp further at the moment but keep sbp <180. IVF for now. Respiratory: tolerating with supplement O2 as she can hopefully come throught this acute phase and maintain airway but needs close icu obs and with mod-high potential of needing intubation today if airway continues to falter with slow acceleration of improved ms. Gastrointestinal: npo currently. sup Renal/Metabolic: ivf. f/u lytes. f/u LA clearance, but LA elevated from seizure. Infectious Disease: wbc likely reacive. us benign. cxr with mild atlectasis and probable aspiration but not blas, and not requiring abx. Not seeming an infectious etiology but can consider LP again if not speeding to recovery state. Hematology: stable. hsq. on outpt asa. eval for further cva with mri, but otherwise can remain on asa. Endocrine: f/u bg. Musculoskeletal: progressive mobility but seizure precautions at the moment. Psych/Social: will look to find family; further history. social work involvement. Supportive and preventative care as ordered. SUP: H2 VTE prophylaxis: heparin Disposition: ICU Code Status: Full Critical Care Time: 45min D/w Dr. Ramirez, Dr. King Anushka Neil,
[2017-09-04] MEDS ORDERED: Famotidine IV * 20 MG in NS 0.9% 100 ML* 100 ML IVPB SCH (14:00)
[2017-09-04] MEDS ORDERED: Heparin VIAL(*) 5000 UNITS/ML VIAL (FIVE THOUSAND) SUBCUT SCH (14:00)
--- NOTE | 2017-09-04 14:09 | PN ---
Progress Note - Progress Note Date of Service: 09/04/17 - Lumbar Puncture Note: Procedure Note: Procedure: Lumbar Puncture Indication: Rule out meningitis, AMS, Seizures, fever Consent: Emergency consent signed by physician. Family not available: multiple attempts were made to reach family without success. Time Out: Completed Procedure: The patient was placed in the right lateral position. The area was cleaned and prepped with Chlorhexidine. Sterile procedure was observed throughout the procedure. L3-4 interspace was palpated at about the level of the iliac crest. Good anesthesia was obtained with 2 cc 1% Lidocaine without epi. The spinal needle was inserted once with resistance and withdrawn with trace blood at the puncture site. A second pass was made and clear spinal fluid was returned. I attempted opening pressure but there was a paucity of fluid and no pressure could be obtained. 4 tubes of 1-2 cc each, clear spinal fluid was obtained and sent to the lab. The spinal needle was withdrawn with good hemostasis. A pressure bandage was applied. No complications
[2017-09-04] MEDS: levETIRAcetam 500 MG IVPREMIX* 500 MG/100 ML BAG IV SCH ×2 (14:10→21:01)
[2017-09-04 14:46] LABS: EGFR Non-African American 85.4 (>60)
--- NOTE | 2017-09-04 15:09 | RAD ---
HISTORY: MRI screening COMPARISONS: None VIEWS: Frontal views of the abdomen. FINDINGS: BOWEL: There is a nonobstructive bowel gas pattern. There is a large amount of stool within the colon. CALCULI: There are no abnormal calculi. BONES AND SOFT TISSUES: There is diffuse osteopenia. Degenerative changes are noted of the spine. OTHER FINDINGS: The lung bases are clear. There is no subphrenic gas. There is no radiographic foreign body. IMPRESSION: 1. NONOBSTRUCTIVE BOWEL GAS PATTERN. 2. LARGE AMOUNT OF STOOL THROUGHOUT THE COLON. 3. NO RADIOPAQUE FOREIGN BODY.
--- NOTE | 2017-09-04 15:10 | RAD ---
HISTORY: MRI clearance. COMPARISON: None. FINDINGS: Frontal and lateral views of the orbits. There is no radiopaque foreign body attributable to the orbits. The orbital rims are intact. The sinuses are clear. The zygomatic arches are normal.. IMPRESSION: No radiopaque foreign body attributable to the orbits.
[2017-09-04] MEDS ORDERED: LORazepam INJ* 2 MG/ML 1 ML VIAL IV PUSH PRN (15:22)
[2017-09-04] MEDS ORDERED: Ondansetron INJ* 2 MG/ML VIAL IV PRN (15:22)
--- NOTE | 2017-09-04 16:08 | CONS ---
CC: Dr. Marc Romeo.* CONSULTATION REPORT: DATE OF ADMISSION: 09/04/17. DATE OF CONSULT: 09/04/17. PRIMARY CARE PROVIDER: Dr. Marc Romeo. LOCATION: Currently in the ER bed 14. REASON FOR CONSULTATION: Seizure. HISTORY OF PRESENT ILLNESS: Ms. Saavedra is a 66-year-old female who was unable to provide me any history. I was able to get some history from the chart review. She was admitted to the hospital back on 03/25/2017. At that time, she suffered a right MCA stroke, nonhemorrhagic in nature, moderate size in the temporoparietal lobe. She had resultant left-sided weakness and some hemineglect on the left. She had a complete stroke workup. She was seen by Dr. Prado at the time. She had no evidence of cardioembolic stroke. No significant carotid artery disease at that time. At that time, she was placed on aspirin and high-dose statin. At the time of discharge, she continued to have weakness and hemineglect and apparently at that time could not cooperate with the examination. She was discharged to [facility]. She presented today to the ER after having multiple seizures this morning; at around 7 a.m. staff noted that she had a seizure, they stated that her head was turning to the right and that her right arm was moving. She became tense on that side. They let the seizure pass and she subsequently had another seizure, and at that time EMS was called, I spoke with the cake cutter machine. He states that when they arrived, she was stiff on the right side, her head was turned to the right. In the ER, she had another seizure. Generalized tonic-clonic in nature. She seemed to staring forward. She does have chronic weakness of her left side, but she had some clonic movements of her right upper and lower extremity. She was given Ativan and when I saw her, she was postictal and sedated. Per prior records, there is no history of previous seizures, and as far as the cake cutter machine knows, she was in her usual state of health prior to this. PAST MEDICAL HISTORY: The stroke in March 2017, otherwise unknown. ALLERGIES: No reported drug allergies. FAMILY HISTORY: She had a son with leukemia and a daughter with hypertension. SOCIAL HISTORY: She moved here from [place] last year to be closer to her family. She has a history of smoking, it is unclear at this point whether she continues to smoke. No reported alcohol or drug use. REVIEW OF SYSTEMS: Review of systems in 14-organ systems unable to obtain because of her current status. PHYSICAL EXAMINATION: Vital Signs: Temp of 98.6, pulse of 131, respiratory rate of 22, pulse ox 100% , blood pressure 179/111. In general, she is a thin, well- developed female, and in no acute distress. Currently somnolent, sedated and snoring. Head and Neck: She is normocephalic , atraumatic. Sclerae are anicteric. Mucous membranes are moist. Oropharynx is clear. Nares are patent. Neck is supple. No thyromegaly. No carotid bruits. Chest: Clear to auscultation bilaterally. Cardiovascular: Tachycardiac, regular rhythm. Abdomen: Nondistended. Extremities: There is no significant edema or cyanosis. On neurologic exam, she is sedated. She does not arouse to external chest rub or to loud voice. She has no spontaneous movement at this point and does not withdraw to pain x4 extremities. Her pupils are equally round and sluggish, but reactive. Doll's eye was positive, left and right. Face appears symmetric , although its difficult to fully assess. DTRs are 1+ at the right patella, trace at the ankle, equivocal Babinski, 1+ at the right biceps, triceps, brachioradialis. On the left, she is 3+ at the biceps and brachioradialis, 3+ at the patella and 1+ at the ankle. Equivocal Babinski. Unfortunately that is all that I could obtain at this point due to her sedation. DIAGNOSTIC STUDIES/LAB DATA: Lab work is pending, I did review her CT scan. As noted above I also reviewed her prior MRI scan. As noted, prior CT angiogram consistent with an acute to subacute right middle cerebral artery infarct. No evidence for carotid stenosis or large vessel intraluminal thrombus. There is decreased opacification and I did not see several branches of the right middle cerebral artery. ASSESSMENT AND PLAN: Ms. Saavedra is a 66-year-old female with a medical history significant for a stroke in March 2017 with a right MCA with resultant left- sided weakness, some aphasia and left-sided neglect. It is unclear what her baseline is at this point. She is living in [facility]. She presented to the hospital this morning with 3 seizures back to back in the ER. She was given some Ativan and her seizure broke, and I instructed the ER physician to load her on Keppra 1000 mg now, given the fact that she has had 3 back to back seizures. The plan is to get an MRI of her brain to look for any new strokes, although I suspect that the old right MCA stroke is the source of her seizure. I will get an EEG as well. Continue her on the Keppra 500 mg IV b.i.d. for now. Place her on seizure precautions. ICU admission. I will order further workup as necessary pending her studies. I will continue to follow her closely and make further recommendations necessary. Thank you for the opportunity to participate in the care of this very interesting patient. [id number]/[facility] #: [id number] JOSE R
--- NOTE | 2017-09-04 16:25 | RAD ---
Indication: Stroke and seizure. Image Sequences: Sagittal and axial T1, axial T2, FLAIR, diffusion and susceptibility weighted images of the brain were obtained. Comparison is made with the previous exam dated March 25, 2017. There is an area of abnormal signal involving the right posterior temporal lobe extending into the right parietal lobe. This likely represents a volume loss and is likely due to encephalomalacia. No restriction of diffusion is noted. Right temporal insula edema is persistent. No restriction of diffusion is noted. The left cerebral hemisphere is otherwise unremarkable. Susceptibility weighted images demonstrates no evidence of susceptibility artifact. Diffusion-weighted images demonstrate no restriction of diffusion. IMPRESSION: Atrophy. Encephalomalacia involving the right posterior temporal lobe extending to the right parietal lobe consistent with old infarct. Likely gliosis in the right temporal insula. No acute changes are noted.
[2017-09-04] MEDS: Famotidine IV* 10 MG/ML 2 ML (20 mg) IV SCH (16:37)
[2017-09-04] MEDS: Acetaminophen SUPP* 650 MG SUPP PR PRN (18:29)
[2017-09-05] MEDS: Heparin VIAL(*) 5000 UNITS/ML VIAL (FIVE THOUSAND) SUBCUT SCH ×3 (06:27→20:57)
[2017-09-05 06:43] LABS: ABS Basophils 0.1 10^3/ul (0-0.2); ABS Eosinophils 0 10^3/ul (0-0.6); ABS Lymphocytes 1.4 10^3/ul (1.0-4.8); ABS Monocytes 0.9 10^3/ul (0-0.8); ABS Neutrophils 10.5 10^3/ul (1.5-7.7); ABS Nucleated RBC 0 10^3/ul; Eosinophil % 0.4 % (0-6); Hematocrit 34 % (35-47); Hemoglobin 11.4 g/dl (12.0-16.0); Lymphocyte % 10.8 % (25-47); Mean Corpuscular HGB Conc 34 g/dl (31-36); Mean Corpuscular Hemoglobin 30 pg (27-31); Mean Corpuscular Volume 89 fL (80-97); Mean Platelet Volume 8 um3 (7.4-10.4); Nucleated Red Blood Cells % 0; Platelet Count 189 10^3/ul (150-450); Red Blood Count 3.78 10^6/ul (4.0-5.4); Red Cell Distribution Width 14 % (10.5-15); White Blood Count 12.9 10^3/ul (3.5-10.8)
[2017-09-05 06:56] LABS: EGFR Non-African American 88.3 (>60)
--- NOTE | 2017-09-05 07:18 | PN ---
Subjective Date of Service: 09/05/17 Interval History: Overnight, remained very somnolent, at times would awaken and speak in sentences , other times confused. Nurse at the beside this am. The patient is more awake and alert this am. Continued low grade fevers, unknown source. No seizure like activity. Not getting PO at this point. She pulled her nasal trumpet last night and her sats dropped. It was replaced and she eventually pulled it out again, but her sats have held. Some pulling on lines but no severe agitation. MRI Brain: Films reviewed. Old stroke Right MCA distribution with encephalomalacia. No new stroke. MRA Brain: Films reviewed. No severe large vessel disease. Final pending EEG: Spoke with Dr. Stringer. No seizures, no status. LP: Could not obtain OP. Studies negative for infection Objective Active Medications: Acetaminophen (Tylenol Supp*) 650 mg RI Q6H PRN PRN Reason: FEVER/PAIN Last Admin: 09/04/17 18:29 Dose: 650 mg Famotidine (Pepcid Iv*) 20 mg IV DAILY [facility] Last Admin: 09/04/17 16:37 Dose: 20 mg Heparin Sodium (Porcine) (Heparin Vial(*)) 5,000 units SUBCUT Q8H [facility] Last Admin: 09/05/17 06:27 Dose: 5,000 units Sodium Chloride (Ns 0.9% 1000 Ml*) 1,000 mls @ 100 mls/hr IV PER RATE [facility] Stop: 09/05/17 21:14 Last Admin: 09/04/17 23:23 Dose: 100 mls/hr Levetiracetam (Keppra Iv Premix*) 500 mg in 100 mls @ 400 mls/hr IV TID [facility] Last Admin: 09/04/17 21:01 Dose: 400 mls/hr Lorazepam (Ativan Inj*) 1 mg IV PUSH Q6H PRN PRN Reason: AGITATION Ondansetron HCl (Zofran Inj*) 4 mg IV Q6H PRN PRN Reason: NAUSEA Vital Signs 09/04/17 09/04/17 09/04/17 09:28 09:30 10:00 Temperature 99.1 F 99.1 F 99.5 F Pulse Rate 95 96 102 Respiratory 32 31 25 Rate Blood Pressure 133/87 134/88 144/114 (mmHg) O2 Sat by Pulse 100 99 98 Oximetry 09/04/17 09/04/17 09/04/17 10:14 10:30 10:47 Temperature 99.9 F 100.8 F Pulse Rate 106 103 Respiratory 29 23 Rate Blood Pressure 146/92 159/97 148/121 (mmHg) O2 Sat by Pulse 87 96 Oximetry 09/04/17 09/04/17 09/04/17 10:52 10:56 11:00 Temperature 99.7 F 100.9 F 100.9 F Pulse Rate 100 100 88 Respiratory 29 31 22 Rate Blood Pressure 148/121 (mmHg) O2 Sat by Pulse 95 98 93 Oximetry 09/04/17 09/04/17 09/04/17 11:01 11:15 11:30 Temperature 100.9 F 101.1 F 101.1 F Pulse Rate 100 96 99 Respiratory 20 29 16 Rate Blood Pressure 149/99 145/100 155/104 (mmHg) O2 Sat by Pulse 99 98 100 Oximetry 09/04/17 09/04/17 09/04/17 11:34 11:45 12:00 Temperature 101.1 F 101.1 F 101.1 F Pulse Rate 102 99 98 Respiratory 23 33 21 Rate Blood Pressure 145/104 150/100 (mmHg) O2 Sat by Pulse 99 99 100 Oximetry 09/04/17 09/04/17 09/04/17 12:01 12:14 12:15 Temperature 101.1 F 101.1 F 101.3 F Pulse Rate 96 97 98 Respiratory 22 36 28 Rate Blood Pressure 140/99 (mmHg) O2 Sat by Pulse 100 100 99 Oximetry 09/04/17 09/04/17 09/04/17 12:30 12:45 13:00 Temperature 101.3 F 101.1 F 101.1 F Pulse Rate 96 96 97 Respiratory 17 22 29 Rate Blood Pressure 144/111 148/96 137/93 (mmHg) O2 Sat by Pulse 99 100 100 Oximetry 09/04/17 09/04/17 09/04/17 13:15 13:30 13:45 Temperature 101.1 F 100.8 F 100.8 F Pulse Rate 96 101 99 Respiratory 40 23 20 Rate Blood Pressure 139/96 136/105 137/107 (mmHg) O2 Sat by Pulse 100 100 100 Oximetry 09/04/17 09/04/17 09/04/17 14:00 14:16 14:30 Temperature 100.8 F 100.8 F 100.8 F Pulse Rate 105 106 104 Respiratory 19 25 23 Rate Blood Pressure 141/105 145/102 142/96 (mmHg) O2 Sat by Pulse 100 99 100 Oximetry 09/04/17 09/04/17 09/04/17 16:00 16:03 16:20 Temperature Pulse Rate 102 Respiratory 19 Rate Blood Pressure (mmHg) O2 Sat by Pulse 98 99 Oximetry 09/04/17 09/04/17 09/04/17 16:39 16:45 17:00 Temperature 101.1 F 101.3 F 101.1 F Pulse Rate 101 100 102 Respiratory 20 19 25 Rate Blood Pressure 147/107 146/99 143/99 (mmHg) O2 Sat by Pulse 97 98 93 Oximetry 09/04/17 09/04/17 09/04/17 17:15 17:31 17:45 Temperature 100.9 F 100.9 F 101.1 F Pulse Rate 99 98 95 Respiratory 23 17 20 Rate Blood Pressure 145/105 142/97 (mmHg) O2 Sat by Pulse 90 92 92 Oximetry 09/04/17 09/04/17 09/04/17 18:00 18:15 18:30 Temperature 101.1 F 101.1 F 101.1 F Pulse Rate 95 96 96 Respiratory 21 26 25 Rate Blood Pressure 135/94 144/95 145/107 (mmHg) O2 Sat by Pulse 93 93 94 Oximetry 09/04/17 09/04/1718 18:45 18:57 19:00 Temperature 100.6 F Pulse Rate 97 93 Respiratory 14 19 Rate Blood Pressure 119/77 115/70 111/72 (mmHg) O2 Sat by Pulse 93 98 Oximetry 09/04/17 09/04/1718 19:15 19:30 19:45 Temperature 100.4 F 100.6 F 100.2 F Pulse Rate 102 101 101 Respiratory 19 23 28 Rate Blood Pressure 121/88 122/83 123/81 (mmHg) O2 Sat by Pulse 92 92 91 Oximetry 09/04/17 09/04/17 09/04/17 19:55 20:00 20:15 Temperature 100.6 F 100.6 F 100.4 F Pulse Rate 100 102 102 Respiratory 21 20 22 Rate Blood Pressure 130/84 118/78 (mmHg) O2 Sat by Pulse 91 90 91 Oximetry 09/04/17 09/04/17 09/04/17 20:30 20:45 21:00 Temperature 100.6 F 100.6 F 100.2 F Pulse Rate 101 101 98 Respiratory 17 15 15 Rate Blood Pressure 114/78 123/81 121/78 (mmHg) O2 Sat by Pulse 91 93 92 Oximetry 09/04/17 09/04/17 09/04/17 21:09 21:15 21:30 Temperature 100.4 F 100.4 F 100.2 F Pulse Rate 99 96 97 Respiratory Rate Blood Pressure 132/86 129/87 (mmHg) O2 Sat by Pulse 92 90 92 Oximetry 09/04/17 09/04/17 09/04/17 21:45 22:00 22:15 Temperature 100.2 F 100.2 F 100.2 F Pulse Rate 97 97 98 Respiratory 9 Rate Blood Pressure 124/84 118/79 136/86 (mmHg) O2 Sat by Pulse 91 92 90 Oximetry 09/04/17 09/04/17 09/04/17 22:30 22:45 23:00 Temperature 100.0 F 100.0 F 100.0 F Pulse Rate 98 95 94 Respiratory 9 Rate Blood Pressure 125/89 120/90 138/86 (mmHg) O2 Sat by Pulse 91 91 91 Oximetry 09/04/17 09/04/17 09/04/17 23:15 23:30 23:45 Temperature 100.0 F 100.2 F 100.0 F Pulse Rate 94 93 97 Respiratory Rate Blood Pressure 127/87 134/92 137/92 (mmHg) O2 Sat by Pulse 95 92 94 Oximetry 09/04/17 09/05/17 09/05/17 23:50 00:00 00:15 Temperature 100.0 F 100.2 F 100.0 F Pulse Rate 92 92 93 Respiratory 18 Rate Blood Pressure 136/91 132/92 (mmHg) O2 Sat by Pulse 91 92 91 Oximetry 09/05/17 09/05/17 09/05/17 00:17 00:18 00:30 Temperature 100.2 F 100.0 F 100.0 F Pulse Rate 93 92 92 Respiratory Rate Blood Pressure 137/93 (mmHg) O2 Sat by Pulse 91 93 94 Oximetry 09/05/17 09/05/17 09/05/17 00:45 01:00 01:15 Temperature 100.2 F 99.9 F 99.9 F Pulse Rate 92 94 92 Respiratory 9 Rate Blood Pressure 136/92 131/94 136/88 (mmHg) O2 Sat by Pulse 92 93 91 Oximetry 09/05/17 09/05/17 09/05/17 01:30 01:45 02:00 Temperature 99.0 F 99.9 F 100.0 F Pulse Rate 92 94 93 Respiratory 10 Rate Blood Pressure 126/88 135/93 129/89 (mmHg) O2 Sat by Pulse 92 91 93 Oximetry 09/05/17 09/05/17 09/05/17 02:15 02:30 02:45 Temperature 100.2 F 100.2 F 100.4 F Pulse Rate 96 116 103 Respiratory 18 Rate Blood Pressure 136/97 160/116 159/115 (mmHg) O2 Sat by Pulse 95 93 97 Oximetry 09/05/17 09/05/17 09/05/17 02:55 03:00 03:13 Temperature 100.4 F Pulse Rate 101 97 Respiratory 13 19 Rate Blood Pressure 137/98 (mmHg) O2 Sat by Pulse 97 95 99 Oximetry 09/05/17 09/05/17 09/05/17 03:15 03:30 03:45 Temperature 100.6 F 100.6 F 100.6 F Pulse Rate 96 92 96 Respiratory 16 12 15 Rate Blood Pressure 135/95 136/93 139/98 (mmHg) O2 Sat by Pulse 97 100 96 Oximetry 09/05/17 09/05/17 09/05/17 04:00 04:15 04:30 Temperature 100.6 F 100.6 F Pulse Rate 97 92 97 Respiratory 20 16 23 Rate Blood Pressure 144/94 138/97 144/102 (mmHg) O2 Sat by Pulse 95 99 98 Oximetry 09/05/17 09/05/17 09/05/17 04:45 05:00 05:15 Temperature Pulse Rate 93 95 94 Respiratory 17 17 15 Rate Blood Pressure 133/95 139/97 151/101 (mmHg) O2 Sat by Pulse 99 97 94 Oximetry 09/05/17 09/05/17 09/05/17 05:30 05:45 06:00 Temperature 100.9 F 100.9 F Pulse Rate 90 95 94 Respiratory 15 16 16 Rate Blood Pressure 146/101 146/104 135/99 (mmHg) O2 Sat by Pulse 98 97 95 Oximetry 09/05/17 09/05/17 09/05/17 06:15 06:30 06:45 Temperature 100.9 F 100.9 F 100.9 F Pulse Rate 96 97 97 Respiratory 19 15 23 Rate Blood Pressure 147/92 148/98 139/97 (mmHg) O2 Sat by Pulse 95 96 94 Oximetry 09/05/17 07:00 Temperature 100.9 F Pulse Rate 94 Respiratory 20 Rate Blood Pressure 132/93 (mmHg) O2 Sat by Pulse 84 Oximetry Oxygen Devices in Use Now: Nasal Cannula Neurology Exam: General: HEENT: Normocephalic/atraumatic, sclera anicteric, mucous membranes dry Neck: Supple Chest: Clear to auscultation bilaterally Cardiovascular: Regular rate and rhythm without murmurs, rubs, gallops Abdomen: Soft, nondistended Extremities: No clubbing, cyanosis, or edema Neurological Findings: Somnolent but awake, somewhat confused. Oriented to person, "long term," [place], [place], August,, then 2018 with cue. Knew her BD, "[employer]" president. Following simple commands. Would not show me 2 fingers on the right hand. Unclear to me if she is neglecting left side. Speech: Fluent with some mild dysarthria, slow to answer Cranial Nerve: PEERL, cataracts present bilaterally, EOM intact, VF difficult to asses, no nystagmus, mild left lower facial weakness, hearing grossly intact , palate elevates symmetrically, tongue midline Motor: Dense HP in the LUE with no significant movement, increased tone with some flexion, slight antigravity LLE proximally, distally no significant movement, tone increased. Right side is antigravity with good resistance. Sensation: Difficult to assess but appears to be down on the left side. Double stimulation was difficult Deep Tendon Reflex: 4+ symmetric in the Patella with cross, ankles difficult, equivocal Babinski. UEs 2+ and symmetric No significant resting or action tremor on the right. 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 Presented to ER with GTC seizure X 3. Risk factor includes old stroke. No prior seizure history that we know. Unclear what her baseline functioning is but has dense HP on the left side after stroke. --Given the fact that she has had a stroke in the past with significant encephalomalacia, I do think she will need pediatric oncology nurse AED as this was most likely the source of her seizure. Continue Keppra IV for now --Swallowing eval, once cleared will switch to PO --Secondary stroke risk factor reduction: Continue ASA, Statin, watch BP (high on admission) --FUO: no abx for now. Improving. Aspiration? --Will likely benefit from additional PT/OT on discharge --If she is stable today, she can likely go to the floor later with neurochecks and seizure precautions --Discharge planning.
[2017-09-05] MEDS: Famotidine IV* 10 MG/ML 2 ML (20 mg) IV SCH (07:48)
[2017-09-05] MEDS: levETIRAcetam 500 MG IVPREMIX* 500 MG/100 ML BAG IV SCH (07:48)
[2017-09-05] MEDS: Acetaminophen SUPP* 650 MG SUPP PR PRN (07:52)
--- NOTE | 2017-09-05 08:16 | ED ---
Robin Carter Angela, scribed for Erick Ramirez MD on 09/04/17 at 0801 . Neurological HPI - HPI Summary HPI Summary: This pt is a 66 y/o female presenting to [facility] via EMS from [facility] for a possible stroke. EMS reports the pt has a right sided gaze. The last time pt was seen normal is unknown. EMS states the pt had 2 seizures this morning, the first one was at 07:05 and the second seizure lasted more than 2 minutes. Per EMS, [facility] staff were unable to find Valium in their pyxis. EMS reports blood pressure is 203/85 and glucose of 149. Pt is currently mute, unable to report history. At baseline, pt is able to speak. PMHx includes CVA in 2016. No hx of seizures. Pt has left sided deficit from CVA. HPI IS LIMITED DUE TO LEVEL 5 CAVEAT - pt is mute. - History of Current Complaint Stated Complaint: CODE BLACK Hx Obtained From: EMS, Medical Records Hx From Patient Unobtainable Due To: Other - level 5 caveat - pt is mute Onset/Duration: Sudden Onset, Still Present Timing: Sudden Onset Current Severity: Moderate Character: Visual Changes - gaze, Other: - seizures Episode Lasting: Seconds/Minutes - second seizure lasted more than 2 minutes Syncope Context: Witnessed Frequency: Episodes x___ - 2 Seizure Character: Generalized Aggravating: Nothing Alleviating: Nothing Associated Signs and Symptoms: Positive: Visual Changes - right sided gaze, Seizure - Additional Pertinent History Primary Care Physician: [id number] - Allergy/Home Medications Allergies/Adverse Reactions: Allergies Allergy/AdvReac Type Severity Reaction Status Date / Time No Known Allergies Allergy Verified 03/25/17 12:08 Home Medications: Home Medications Acetaminophen TAB* [Tylenol TAB*] 650 mg PO Q6H PRN 09/04/17 [History Confirmed 09/04/17] Atorvastatin* [Lipitor 80 MG*] 80 mg PO BEDTIME 09/04/17 [History Confirmed 01/15] Omeprazole CAP* [Prilosec CAP* 20 MG] 40 mg PO BID 09/04/17 [History Confirmed 09/04/17] Ondansetron TAB* [Zofran 4 MG Tab*] 4 mg PO Q6H PRN 09/04/17 [History Confirmed 09/04/17] PMH/Surg Hx/FS Hx/Imm Hx Endocrine/Hematology History: Denies: Hx Diabetes Cardiovascular History: Reports: Hx Syncope - light headedness and fell on bed/ per son a week ago (03/18), Other Cardiovascular Problems/Disorders - Dr. Westfall PCP Denies: Hx Hypertension, Hx Pacemaker/ICD History: Denies: Hx Renal Disease Musculoskeletal History: Reports: Hx Back Problems - chronic back pain, Other Musculoskeletal History - chronic left knee pain Sensory History: Denies: Hx Contacts or Glasses, Hx Legally Blind, Hx Deafness, Hx Hearing Aid Opthamlomology History: Denies: Hx Contacts or Glasses, Hx Legally Blind Neurological History: Reports: Hx CVA Psychiatric History: Denies: Hx Panic Disorder - Surgical History Surgery Procedure, Year, and Place: appendectomy - 25 years ago Hx Anesthesia Reactions: No - Family History Known Family History: Positive: Hypertension - Social History Alcohol Use: Rare Hx Substance Use: No Substance Use Type: Reports: None Hx Tobacco Use: Yes Smoking Status (MU): Former Smoker Type: Cigarettes Review of Systems - ROS Summary Review of Systems Summary: ROS IS LIMITED DUE TO LEVEL 5 CAVEAT - pt is mute Negative: Fever, Chills Cardiovascular: Other - hypertension Neurological: Other - right sided gaze, seizures All Other Systems Reviewed And Are Negative: No Physical Exam - Summary Physical Exam Summary: VITAL SIGNS: Reviewed. GENERAL: Patient is a well-developed and nourished female who is lying comfortable in the stretcher. Patient is not in any acute respiratory distress. HEAD AND FACE: No signs of trauma. No ecchymosis, hematomas or skull depressions. No sinus tenderness. EYES: PERRLA, EOMI x 2, No injected conjunctiva, no nystagmus. No photophobia. EARS: Hearing grossly intact. Ear canals and tympanic membranes are within normal limits. MOUTH: Oropharynx within normal limits. NECK: Supple, trachea is midline, no adenopathy, no JVD, no carotid bruit, no c- spine tenderness, neck with full ROM. No meningeal signs, no Kernig's or brudzinskis signs. CHEST: Symmetric, no tenderness at palpation LUNGS: Clear to auscultation bilaterally. No wheezing or crackles. CVS: Regular rate and rhythm, S1 and S2 present, no murmurs or gallops appreciated. ABDOMEN: Soft, non-tender. No signs of distention. No rebound no guarding, and no masses palpated. Bowel sounds are normal. EXTREMITIES: FROM in all major joints, no edema, no cyanosis or clubbing. NEURO: Alert. Pt has right sided gaze. Pt is mute. SKIN: Dry and warm Triage Information Reviewed: Yes Vital Signs On Initial Exam: Initial Vitals Temp Pulse Resp BP Pulse Ox 98.6 F 131 22 179/111 100 09/04/17 08:00 09/04/17 08:00 09/04/17 08:00 09/04/17 08:00 09/04/17 08:00 Vital Signs Reviewed: Yes - [place] Coma Scale Best Eye Response: 4 - Spontaneous Best Motor Response: 5 - Purposeful Movement Best Verbal Response: 4 - Confused Coma Scale Total: 13 Diagnostics - Laboratory Result Diagrams: 09/04/17 08:14 09/04/17 14:05 Lab Statement: Any lab studies that have been ordered have been reviewed, and results considered in the medical decision making process. - Radiology Chest XR Xray Interpretation: Positive (See Comments) - IMPRESSION: The aorta is tortuous with new widening of the mediastinum which is concerning for acute aortic pathology, including dissection, given the history of unresponsive patient. Consideration of CT angiography of the chest. Dr. Ramirez has reviewed this radiology report. Radiology Interpretation Completed By: Radiologist - CT Brain CT CT Interpretation: No Acute Changes - IMPRESSION: Remote right MCA distribution infarct with resultant encephalomalacia. No acute intracranial findings. Dr. Ramirez has reviewed this radiology report. CT Interpretation Completed By: Radiologist Chest/Thorax CTA CT Interpretation: Positive (See Comments) - IMPRESSION: 1. No evidence of aortic aneurysm or dissection. Ectatic thoracic aorta with mild uncoiling. 2. 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 This is an incidental finding. 3. Interstitial congestion with basilar atelectasis and small bilateral pleural effusions. Dr. Ramirez has reviewed this radiology report. CT Interpretation Completed By: Radiologist - EKG 08:11 Cardiac Rate: Tachycardia EKG Rhythm: Sinus Tachycardia - at 129 bpm EKG Interpretation: No ST elevation. NIH Scale - NIH Scale NIH Stroke Scale Comment: Unable to perform NIH as pt is mute and in status epilepticus. Re-Evaluation - Re-Evaluation First Eval Re-Evaluation Time: 08:07 Change: Unchanged Comment: Dr. Landrum, neurologist, is at bedside. Second Eval Re-Evaluation Time: 08:08 Change: Worse Comment: Pt had another seizure, 2 mg of ativan was administered. Course/Dx - Course Assessment/Plan: This pt is a 66 y/o female presenting to [facility] via EMS from [facility] for a possible stroke. EMS reports the pt has a right sided gaze. The last time pt was seen normal is unknown. EMS states the pt had 2 seizures this morning, the first one was at 07:05 and the second seizure lasted more than 2 minutes. Per EMS, [facility] staff were unable to find Valium in their pyxis. EMS reports blood pressure is 203/85 and glucose of 149. PMHx includes CVA in 2016. No hx of seizures. Pt has left sided deficit from CVA. Test results show WBC of 17, lactic acid of 3.1. Head CT: Remote right MCA distribution infarct with resultant encephalomalacia. No acute intracranial findings. Chest XR: The aorta is tortuous with new widening of the mediastinum which is concerning for acute aortic pathology, including dissection, given the history of unresponsive patient. Consideration of CT angiography of the chest. There was an abnormality in the chest XR, therefore the pt had a CTA of chest to rule out dissection. CTA chest: 1. No evidence of aortic aneurysm or dissection. Ectatic thoracic aorta with mild uncoiling. 2. 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 This is an incidental finding. 3. Interstitial congestion with basilar atelectasis and small bilateral pleural effusions. The pt had already three seizures, one in the ER which lasted approximately 30 seconds. The pt was given Ativan, IV fluids, and Keppra low in dose. Dr. Landrum, neurologist, saw and examined the pt and he reported the pt is not a candidate for tPA since the pt is having seizures. The pt is in status epilepticus. The pt is maintaining airway therefore we did not intubate the pt. I discussed the plan with Dr. Neil, developer relations manager, who agreed with current management and will admit the pt to his services for further work up and management. Pt was also given 1 dose of labetalol for uncontrolled hypertension. - Diagnoses Provider Diagnoses: Status epilepticus, Hypertensive emergency, rule out CVA During the Visit The Following Alert/Code Occurred: Code Black - at 07:55 - Physician Notifications Discussed Care Of Patient With: Steven Neil Time Discussed With Above Provider: 09:22 Instructed by Provider To: Other - I discussed pt care with Dr. Neil, developer relations manager, who has agreed to admi the pt. - Critical Care Time Critical Care Time: 75-104 min Discharge - Discharge Plan Condition: Stable Disposition: ADMITTED TO [facility] documentation as recorded by the Robin roberts Angela accurately reflects the service I personally performed and the decisions made by me, Erick Ramirez MD.
[2017-09-05] MEDS ORDERED: Acetaminophen TAB* 325 MG PO PRN (09:49)
[2017-09-05] MEDS ORDERED: Magnesium Sulfate 2 GM IV* 2 GM/50 ML BAG IVPB ONE (09:50)
--- NOTE | 2017-09-05 10:08 | RAD ---
Indication: Stroke and seizure. MRA of the head was performed utilizing 3-D [id number] technique. Multiple maximum intensity projection images were obtained. The carotid arteries demonstrate no evidence of carotid artery dissection. Normal bifurcation into the anterior and middle cerebral artery is noted. No branch occlusion is noted. No aneurysmal dilatation is noted. Vertebral artery and basilar artery as well as the posterior cerebral arteries are unremarkable. No branch occlusion is noted. No aneurysmal dilatation is noted. IMPRESSION: There is no evidence of branch occlusion or aneurysmal dilatation of the intracranial circulation.
[2017-09-05] MEDS ORDERED: Albuterol/Ipratropium NEB.SOL* Albuterol 2.5 MG/Ipratropium 0.5 MG 3 ML INH PRN (10:12)
[2017-09-05] MEDS: Aspirin 81 mg CHEW TAB* 81 MG TAB.CHEW PO SCH (10:24)
--- NOTE | 2017-09-05 10:46 | EEG ---
ELECTROENCEPHALOGRAPHY: DATE OF EE09/04/17 LOCATION: Patient is an inpatient. ORDERING PHYSICIAN: Dr. Landrum. HISTORY: This is a 66-year-old woman who had a large right MCA stroke in March 2017. She was brought to the emergency department from [facility] after suffering a seizure there without any previous history of seizures. She apparently then had 2 additional seizures in the emergency department where she was given Ativan as well as loaded with levetiracetam. EEG is requested to evaluate for epileptiform abnormalities or subclinical seizure activity. MEDICATIONS: None listed, but by verbal report from Dr. Landrum the patient received Ativan and levetiracetam in the emergency department. DESCRIPTION OF PROCEDURE: At the beginning of the recording, the EEG was characterized by an interhemispheric symmetry and neither hemisphere appeared normal. Over the left hemisphere, there was loss of the usual anterior to posterior voltage and frequency gradients. The background consisted of polymorphic mixed frequency slowing, mostly in the theta range with superimposed delta range frequencies as well. In contrast, during the initial portion of the recording, the right hemisphere was frequently characterized by semi-periodic sharply contoured delta in the right central parietal region. The sharply contoured waves did not have definitive epileptiform morphology. Superimposed on this 1 Hz activity were theta range frequencies as well. At times faster frequency activity in the alpha range was intermixed within this delta range slowing. There was no clear evolution into an ictal pattern in either rhythmicity or spatial location. Otherwise, the right hemisphere also lacked the organization expected as a typical waking or sleep background. As the recording progressed, there were fewer periods of semi-periodic, sharply contoured delta, and less of the intermixed faster frequency activity. Throughout the recording, the patient did have occasional periods lasting 1 to 2 seconds of diffuse voltage suppression. IMPRESSION: This is an abnormal EEG due to the presence of diffuse background slowing with an interhemispheric asymmetry whereby the right hemisphere at the beginning of the recording was characterized by semi-periodic sharply contoured delta activity followed by sudden increase in faster frequency activity without any clear evolution into an ictal pattern. The left hemisphere lacked organization typically expected of the waking background and was characterized by diffuse polymorphic mixed frequency slowing. These findings are suggestive of diffuse cerebral dysfunction of a moderate to severe degree with superimposed excessive neuronal dysfunction in the right hemisphere, in particular the central parietal region. There are no definitive epileptiform abnormalities and no clear ictal patterns. [id number] #: [id number]
--- NOTE | 2017-09-05 11:27 | PN ---
Progress Note - Progress Note Date of Service: 09/05/17 Note: CRITICAL CARE MEDICINE DATE: 09/05/17 TIME: 1100 SUBJECTIVE: Patient seen and examined. PHYSICAL EXAM: Vital Signs: Reviewed. low grade temps. Neurologic: much better. awakens to voice. able to communicate, although still not oriented. thought she was at [facility]. feels more like self. remaining left sided deficits. HEENT: pamella NC. mmm Cardiovascular: S1 S2 Respiratory: rate stable. weaning O2. Mod rhonchi still on right Abdomen: soft, nt Extremities: warm Access: piv LABS: Reviewed. IMAGING: Reviewed. MEDICATIONS: Reviewed. ASSESSMENT: 66 F Status epilepticus h/o R MCA CVA Aspiration pneumonitis PLAN: Neurologic: keepra continued but adjusted to po bid. neuro f/u for outpt needs. on sec cva prevention. Cardiovascular: off ivf. bp initially high in admission but has return to almost normal. f/u without rx needs Respiratory: wean off supplement O2. aspiration clearing. flutter valve sec to secretion clearance needs. protecting airway otherwise. Gastrointestinal: swallow eval - puree, honey thick. on ppi from outpt Renal/Metabolic: ivf off. replete mag. brandy mallory Infectious Disease: wbc likely post aspiration - coming down. no abx requirement. UA neg. LP looking neg. Hematology: stable. hsq. remain on asa, statin. Endocrine: ok Musculoskeletal: progressive mobility. pt eval. Psych/Social: social work involvement. Supportive and preventative care as ordered. SUP: H2 VTE prophylaxis: heparin Disposition: ICU this am and likely floor later today Code Status: Full Critical Care Time: 25min FMaribel Neil DO
[2017-09-05 15:00] LABS: CSF VDRL Negative (Negative)
[2017-09-05] MEDS: levETIRAcetam TAB* 500 MG PO SCH (20:56)
[2017-09-05] MEDS: Omeprazole CAP* 20 MG PO SCH (20:56)
[2017-09-05] MEDS: Atorvastatin* 80 MG TAB PO SCH (20:57)
[2017-09-06] MEDS: Heparin VIAL(*) 5000 UNITS/ML VIAL (FIVE THOUSAND) SUBCUT SCH ×3 (05:38→21:00)
--- NOTE | 2017-09-06 07:36 | PN ---
Subjective Date of Service: 09/06/17 Interval History: Uneventful overnight. No seizure activity. On mechanical diet and tolerating well. Occasional confusion but overall, more alert and oriented. Left HP persists unchanged. Cooperative. Objective Active Medications: Acetaminophen (Tylenol Supp*) 650 mg UT Q6H PRN PRN Reason: FEVER/PAIN Last Admin: 09/05/17 07:52 Dose: 650 mg Acetaminophen (Tylenol Tab*) 650 mg PO Q6H PRN PRN Reason: FEVER/PAIN Albuterol/Ipratropium (Duoneb (Albuterol 2.5 Mg/Ipratropium 0.5 Mg)) 1 neb INH Q4H PRN PRN Reason: SOB/WHEEZING Aspirin (Aspirin Low Dose Tab*) 81 mg PO DAILY [facility] Last Admin: 09/05/17 10:24 Dose: 81 mg Atorvastatin Calcium (Lipitor*) 80 mg PO BEDTIME [facility] Last Admin: 09/05/17 20:57 Dose: 80 mg Heparin Sodium (Porcine) (Heparin Vial(*)) 5,000 units SUBCUT Q8H [facility] Last Admin: 09/06/17 05:38 Dose: 5,000 units Levetiracetam (Keppra Tab*) 500 mg PO BID [facility] Last Admin: 09/05/17 20:56 Dose: 500 mg Omeprazole (Prilosec Cap*) 40 mg PO BID [facility] Last Admin: 09/05/17 20:56 Dose: 40 mg Ondansetron HCl (Zofran Inj*) 4 mg IV Q6H PRN PRN Reason: NAUSEA Vital Signs 09/05/17 09/05/17 09/05/17 07:30 07:45 08:00 Temperature 100.9 F 101.1 F 101.1 F Pulse Rate 94 98 98 Respiratory 21 16 12 Rate Blood Pressure 132/93 144/97 117/87 (mmHg) O2 Sat by Pulse 98 98 94 Oximetry 09/05/17 09/05/17 09/05/17 08:15 08:30 08:42 Temperature 100.8 F 100.9 F Pulse Rate 101 100 Respiratory 15 16 Rate Blood Pressure 127/78 126/78 (mmHg) O2 Sat by Pulse 86 97 95 Oximetry 09/05/17 09/05/17 09/05/17 08:45 09:00 09:15 Temperature 100.9 F 100.9 F 101.1 F Pulse Rate 100 102 101 Respiratory 18 16 17 Rate Blood Pressure 119/83 122/82 126/82 (mmHg) O2 Sat by Pulse 94 94 89 Oximetry 09/05/17 09/05/17 09/05/17 09:30 09:45 10:00 Temperature 101.1 F 100.9 F 100.8 F Pulse Rate 102 101 98 Respiratory 15 Rate Blood Pressure 124/82 114/84 114/86 (mmHg) O2 Sat by Pulse 97 97 95 Oximetry 09/05/17 09/05/17 09/05/17 10:15 10:30 10:45 Temperature 100.8 F 100.9 F 101.1 F Pulse Rate 102 95 94 Respiratory 15 28 17 Rate Blood Pressure 124/81 124/89 128/90 (mmHg) O2 Sat by Pulse 88 98 98 Oximetry 09/05/17 09/05/17 09/05/17 11:00 11:15 11:30 Temperature 101.5 F Pulse Rate 94 95 90 Respiratory 23 21 20 Rate Blood Pressure 133/90 125/91 121/86 (mmHg) O2 Sat by Pulse 96 92 86 Oximetry 09/05/17 09/05/17 09/05/17 11:45 12:00 12:07 Temperature 100.2 F Pulse Rate 91 92 Respiratory 19 17 Rate Blood Pressure 125/90 121/90 (mmHg) O2 Sat by Pulse 93 100 Oximetry 09/05/17 09/05/17 09/05/17 12:15 12:30 12:45 Temperature Pulse Rate 89 90 89 Respiratory 19 17 17 Rate Blood Pressure 121/89 124/92 122/93 (mmHg) O2 Sat by Pulse 90 97 100 Oximetry 09/05/17 09/05/17 09/05/17 12:56 13:00 13:15 Temperature Pulse Rate 87 89 Respiratory 17 16 18 Rate Blood Pressure 115/83 117/85 (mmHg) O2 Sat by Pulse 100 100 Oximetry 09/05/17 09/05/17 09/05/17 13:30 13:45 14:00 Temperature Pulse Rate 90 93 90 Respiratory 17 18 16 Rate Blood Pressure 127/91 124/95 129/100 (mmHg) O2 Sat by Pulse 94 87 98 Oximetry 09/05/17 09/05/17 09/05/17 14:15 15:48 19:37 Temperature 99.6 F Pulse Rate 92 91 93 Respiratory 15 20 Rate Blood Pressure 120/89 116/78 (mmHg) O2 Sat by Pulse 90 98 99 Oximetry 09/05/17 09/05/17 09/05/17 20:00 20:46 23:46 Temperature 98.1 F 100.5 F Pulse Rate 94 89 Respiratory 18 18 20 Rate Blood Pressure 129/88 132/85 (mmHg) O2 Sat by Pulse 98 98 97 Oximetry 09/06/17 04:08 Temperature 98.9 F Pulse Rate 96 Respiratory 20 Rate Blood Pressure 112/79 (mmHg) O2 Sat by Pulse 95 Oximetry Oxygen Devices in Use Now: Nasal Cannula Neurology Exam: General: HEENT: Normocephalic/atraumatic, sclera anicteric, mucous membranes moist Neck: Supple Chest: Clear to auscultation bilaterally Cardiovascular: Regular rate and rhythm without murmurs, rubs, gallops Abdomen: Soft, nontender/nondistended Extremities: No clubbing, cyanosis, or edema Neurological Findings: Awake, Alert, Oriented x person, [place], [place], August 2017 Speech: fluent with mild dysarthria Cranial Nerve: PEERL, left lower facial droop, palate elevates symmetrically, tongue midline Motor: Dense HP left upper extremity with increased tone and flexion, trace movement left lower extremity with increased tone. Strong antigravity right side Sensation: Grossly some sensory loss to LT/PP on the left, ? left sided neglect Result Diagrams: 09/05/17 06:30 09/05/17 06:30 Microbiology and Other Data: Microbiology 09/04/17 13:27 Gram Stain - Final Sputum 09/04/17 13:49 CSF Gram Stain (Tube 3) - Final Cerebral Spinal Fluid 09/04/17 10:50 Nasal Screen MRSA (PCR)(ALEX) - Final Nasal Mrsa Not Detected Assessment/Plan 66 year old with a history of left right MCA stroke in March 2017 with resultant left sided weakness, reported neglect. Presented to ER with GTC seizure X 3. Risk factor includes old stroke. No prior seizure history that we know of. Dense HP on the left side after right MCA stroke in 2016 --Continue Keppra: I suspect that this is causing some somnolence but she is improving each day. No further seizure activity. She will need to be discharged on this medication [facility]p. Focus likely old stroke --Swallowing eval completed: mechanical. Doing well. --Secondary stroke risk factor reduction: Continue ASA, Statin, follow BPs and control as necessary --Low Magnesium: Defer to Primary team for replacement. --FUO: Cultures negative. LP studies negative to date. Improving slowly, afebrile this am --Will likely benefit from additional PT/OT on discharge --Discharge planning.
[2017-09-06] MEDS: Omeprazole CAP* 20 MG PO SCH ×2 (07:59→21:00)
[2017-09-06] MEDS: levETIRAcetam TAB* 500 MG PO SCH ×2 (07:59→21:00)
[2017-09-06] MEDS: Aspirin 81 mg CHEW TAB* 81 MG TAB.CHEW PO SCH (07:59)
--- NOTE | 2017-09-06 15:47 | PN ---
Subjective Date of Service: 09/06/17 Interval History: Patient continues to be very subdued. Patient responds to questioning appropriately but slowly. A/Ox3. Patient denies dizziness, CP, SOB, N/V, F/C, abdominal pain, diarrhea, constipation, dysuria, CASTELLANOS, changes in vision, or other pain. No seizure activity. Family History: Unchanged from Admission Social History: Unchanged from Admission Past Medical History: Unchanged from Admission Objective Active Medications: Acetaminophen (Tylenol Supp*) 650 mg ND Q6H PRN PRN Reason: FEVER/PAIN Last Admin: 09/05/17 07:52 Dose: 650 mg Acetaminophen (Tylenol Tab*) 650 mg PO Q6H PRN PRN Reason: FEVER/PAIN Last Admin: 09/06/17 08:00 Dose: 650 mg Albuterol/Ipratropium (Duoneb (Albuterol 2.5 Mg/Ipratropium 0.5 Mg)) 1 neb INH Q4H PRN PRN Reason: SOB/WHEEZING Aspirin (Aspirin Low Dose Tab*) 81 mg PO DAILY [facility] Last Admin: 09/06/17 07:59 Dose: 81 mg Atorvastatin Calcium (Lipitor*) 80 mg PO BEDTIME [facility] Last Admin: 09/05/17 20:57 Dose: 80 mg Heparin Sodium (Porcine) (Heparin Vial(*)) 5,000 units SUBCUT Q8H [facility] Last Admin: 09/06/17 13:14 Dose: 5,000 units Levetiracetam (Keppra Tab*) 500 mg PO BID [facility] Last Admin: 09/06/17 07:59 Dose: 500 mg Omeprazole (Prilosec Cap*) 40 mg PO BID [facility] Last Admin: 09/06/17 07:59 Dose: 40 mg Ondansetron HCl (Zofran Inj*) 4 mg IV Q6H PRN PRN Reason: NAUSEA Vital Signs - 8 hr 09/06/17 09/06/17 08:00 11:11 Temperature 99.5 F Pulse Rate 83 Respiratory 22 24 Rate Blood Pressure 106/71 (mmHg) O2 Sat by Pulse 97 Oximetry Oxygen Devices in Use Now: None Appearance: Patient is a 66yo female who appears older than states age and is sitting in the chair in NAD. Eyes: No Scleral Icterus, PERRLA Ears/Nose/Mouth/Throat: NL Teeth, Lips, Gums, Clear Oropharnyx, Mucous Membranes Moist Neck: NL Appearance and Movements; NL JVP, Trachea Midline Respiratory: Symmetrical Chest Expansion and Respiratory Effort, Clear to Auscultation, - - Rhonchi in right anterior lobe which clear with deep breathing. Cardiovascular: NL Sounds; No Murmurs; No JVD, RRR, No Edema Abdominal: NL Sounds; No Tenderness; No Distention, No Hepatosplenomegaly Lymphatic: No Cervical Adenopathy Extremities: No Edema, No Clubbing, Cyanosis Skin: No Rash or Ulcers, No Nodules or Sclerosis Neurological: Alert and Oriented x 3, - - Left sided 1/5 strength. Right sided facial droop. Right sided 3/5 strength. Hyperactive reflexes on left side with non-reactive babinski. Result Diagrams: 09/05/17 06:30 09/05/17 06:30 Microbiology and Other Data: Microbiology 09/04/17 13:27 Gram Stain - Final Sputum 09/04/17 13:49 CSF Gram Stain (Tube 3) - Final Cerebral Spinal Fluid 09/04/17 10:50 Nasal Screen MRSA (PCR)(ALEX) - Final Nasal Mrsa Not Detected Assess/Plan/Problems-Billing 66 year old with a history of left right MCA stroke in March 2017 with resultant left sided weakness, reported neglect. Presented to ER with GTC seizure X 3. Risk factor includes old stroke. No prior seizure history that we know of. Dense HP on the left side after right MCA stroke in 2016 --Continue Keppra: I suspect that this is causing some somnolence but she is improving each day. No further seizure activity. She will need to be discharged on this medication detention. Focus likely old stroke --Swallowing eval completed: mechanical. Doing well. --Secondary stroke risk factor reduction: Continue ASA, Statin, follow BPs and control as necessary --Low Magnesium: Defer to Primary team for replacement. --FUO: Cultures negative. LP studies negative to date. Improving slowly, afebrile this am --Will likely benefit from additional PT/OT on discharge --Discharge planning. - Patient Problems (1) Seizure Current Visit: Yes Status: Acute Code(s): R56.9 - UNSPECIFIED CONVULSIONS SNOMED Code(s): 90655762 Comment: Appreciate Neurology input. 3 Generalized Tonic-Clonic seizures without return to baseline in between. No signs of new stroke. Likely related to previous CVA. Slow return to baseline. Sedation from antiepileptics or residual effect of seizure. No signs of meningitis. Continue Keppra. (2) CVA (cerebral vascular accident) Current Visit: No Status: Acute Code(s): I63.9 - CEREBRAL INFARCTION, UNSPECIFIED SNOMED Code(s): 489497431 Comment: History of right MCA CVA. Likely embolic etiology. Continue secondary prevention with ASA and statin. Continued left sided hemiparesis and neglect. Likely cause of seizure. Appreciate Neurology input. PT/OT, will go back to [facility]. (3) Dyslipidemia Current Visit: Yes Status: Acute Code(s): E78.5 - HYPERLIPIDEMIA, UNSPECIFIED SNOMED Code(s): 595062360 Comment: Continue statin. LDL 83 on max dose lipitor. Continue current therapy. (4) FUO (fever of unknown origin) Current Visit: Yes Status: Acute Comment: Intermittently slightly elevated temperatures. Likely due to aspiration during seizure. No indication for antibiotics. (5) DVT prophylaxis Current Visit: No Status: Acute Code(s): VED6258 - SNOMED Code(s): 467077211 Comment: - SQ heparin. (6) Full code status Current Visit: No Status: Acute Code(s): Z78.9 - OTHER SPECIFIED HEALTH STATUS SNOMED Code(s): 064073779 Status and Disposition: Inpatient. Hopeful discharge tomorrow.
[2017-09-06] MEDS: Atorvastatin* 80 MG TAB PO SCH (21:00)
[2017-09-07 05:25] LABS: ABS Basophils 0.1 10^3/ul (0-0.2); ABS Eosinophils 0.3 10^3/ul (0-0.6); ABS Lymphocytes 2.3 10^3/ul (1.0-4.8); ABS Monocytes 1.1 10^3/ul (0-0.8); ABS Neutrophils 5.9 10^3/ul (1.5-7.7); ABS Nucleated RBC 0 10^3/ul; Eosinophil % 2.7 % (0-6); Hematocrit 33 % (35-47); Hemoglobin 11.4 g/dl (12.0-16.0); Mean Corpuscular HGB Conc 34 g/dl (31-36); Mean Corpuscular Hemoglobin 31 pg (27-31); Mean Corpuscular Volume 90 fL (80-97); Mean Platelet Volume 7 um3 (7.4-10.4); Nucleated Red Blood Cells % 0; Platelet Count 183 10^3/ul (150-450); Red Blood Count 3.71 10^6/ul (4.0-5.4); Red Cell Distribution Width 14 % (10.5-15); White Blood Count 9.7 10^3/ul (3.5-10.8)
[2017-09-07 05:43] LABS: EGFR Non-African American 76.4 (>60)
[2017-09-07] MEDS: Heparin VIAL(*) 5000 UNITS/ML VIAL (FIVE THOUSAND) SUBCUT SCH (06:18)
[2017-09-07] MEDS ORDERED: Amoxicillin/Clavulanate TAB* 875 MG PO SCH (09:00)
[2017-09-07] MEDS: Omeprazole CAP* 20 MG PO SCH (09:45)
[2017-09-07] MEDS: levETIRAcetam TAB* 500 MG PO SCH (09:45)
[2017-09-07] MEDS: Aspirin 81 mg CHEW TAB* 81 MG TAB.CHEW PO SCH (09:45)
[2017-09-07 12:05] VITALS: BP 104/66
--- NOTE | 2017-09-07 17:38 | DS ---
CC: Mike Landrum MD; Venkata Prado MD * DISCHARGE SUMMARY: DATE OF ADMISSION: 09/04/17 DATE OF DISCHARGE: 09/07/17 PRIMARY CARE PROVIDER: [facility]. MY ATTENDING WHILE IN THE HOSPITAL: Alyson Puentes DO.* (DICTATED BY AMELIA GALE) CONSULTING NEUROLOGISTS: Mike Landrum MD, and Venkata Prado MD, of Neurology. PRIMARY DISCHARGE DIAGNOSES: 1. Generalized tonic clonic seizures with status epilepticus. 2. Fever unknown origin. 3. Aspiration. SECONDARY DISCHARGE DIAGNOSES: 1. 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 2. Hyperlipidemia. STUDIES DONE WHILE IN THE HOSPITAL: KUB from 09/04/17, read as nonobstructive bowel gas pattern, large amount of stool throughout the colon, no radiopaque foreign body. Skull x-ray from 09/04/17 read as no radiopaque foreign body attributable to the orbits. Brain CT from 09/04/17 read as remote right MCA distribution infract with resultant encephalomalacia, no acute intracranial findings. Chest x-ray 09/04/17 read as the aorta is tortuous with new widening of the mediastinum which is concerning for acute aortic pathology including dissection, given the history of unresponsive patient, consideration CT angiography of the chest. Was discused with Emergency department physician at approximately 0858 on 09/04/17. 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 Interstitial congestion with basilar atelectasis and small bilateral pleural effusions. Brain MRI from 09/04/17 read as atrophy, encephalomalacia involving the right posterior temporal lobe extending to the right parietal lobe consistent with old infarct, likely gliosis in the right temporal lobe insula, no acute changes are noted. MRA read as, there is no evidence of branch occlusion or aneurysmal dilatation of the intracranial circulation. EEG from 09/04/17 read as, this is as abnormal EEG due to the presence of diffuse background slowing with interhemispheric asymmetry whereby the right hemisphere at the beginning of the recording was characterized by semi -periodic sharply contoured delta activity followed by sudden increase in faster frequency activity without any clear evolution into ictal pattern. Left hemisphere lacked organization typically expected in waking background and was characterized by diffused polymorphic mixed frequency slowing. These findings are suggestive of diffuse cerebral dysfunction to a moderate to severe degree with superimposed excessive neuronal dysfunction in the right hemisphere particularly in the central parietal region. There is no definitive epileptiform activities and no clear ictal patterns. MEDICATIONS AT DISCHARGE: 1. Aspirin 81 mg p.o. daily. 2. Zofran 4 mg p.o. q. 6 hours as needed. 3. Tylenol 650 mg p.o. q. 6 hours as needed. 4. Prilosec 40 mg p.o. b.i.d. 5. Lipitor 80 mg p.o. at bedtime. 6. DuoNeb 1 neb inhalation q. 4 hours as needed for wheezing shortness of breath. 7. Amoxicillin 875 mg p.o. b.i.d. for 7 days. 8. Keppra 500 mg p.o. b.i.d. New medications at discharge: 1. DuoNeb. 2. Augmentin. 3. Keppra. Medications discontinued at discharge: None. HOSPITAL COURSE: This is a brief summary of patient's presentation. For more details, please see the hi story and physical from Dr. Steven Neil on . In brief, the patient is a 66-year-old female with past medical history significant for the above who presents with seizure at [facility] with 2 subsequent seizures who has now returned to baseline in between. The patient previously had a right MCA stroke in May 2017. The patient was given Ativan and Keppra and was able to be broken off her stroke but was found to postictal. Was then severely sedated. The patient had MRI and MRA read as above. The patient had fevers of unknown origin believed to be due to aspiration. The patient had and LP due to altered mental status and fever which showed on infectious organism or other histological or chemical signs of infection. The patient was seen in consultation by Mike Landrum of Neurology and this was believed to be a sequelae of previous stroke. From to 09/05, patient had fevers and would being sedated, but was less so. The patient had no new stroke on MRI and no new focal or neurological deficits. The patient had a swallow eval which was updated. Initially, we had her on honey thickened liquids and pureed solids but was then able to be upgraded to pureed solids and thin liquids with no straws. On reexamination, the patient continued to improve from 09/05 to 09/07 with her altered mental status resolving, her fevers, improving and her vital signs otherwise being stable. The patient stated that she feels back to her baseline. The patient was able to transfer with help but still appeared significantly below her baseline, but had baseline deficits for which she was living at [facility] salvage determiner. The patient had no other complaints during this hospitalization. PHYSICAL EXAMINATION ON DATE OF DISCHARGE: General: The patient is a 66-year- old female, who appears her stated age with obvious right-sided facial droops, sitting in the bed in no acute distress. Vital signs at the time of discharge: Temperature 98.4, pulse rate 88, respiratory rate 16, oxygen saturations 96% on room air, blood pressure 103/76. HEENT: Head normocephalic, atraumatic. Sclera anicteric, no conjunctival injection. Nasal mucosa moist. Oral mucosa moist. No pharyngeal erythema, discharge or exudate. Neck: Supple, nontender. No lymphadenopathy. No carotid bruit auscultated. No JVD. Cardiac : Regular rate and rhythm. No clicks, murmurs, gallops, rubs. Pulses 2+ bilaterally in dorsalis pedis, posterior tibialis, and radial areas. No extremity edema noted. No calf tenderness. Respiratory: Crackles heard in the middle lobe of the right lung. Good air exchange. No adventitious lung sounds. Abdomen: Soft, nontender, nondistended. Bowel sounds present, normoactive in all 4 quadrants. No abdominal bruits auscultated. Skin: Purpura. No other rash. Genitourinary: No suprapubic tenderness or CVA tenderness. Psychiatric: Pleasant, cooperative though confused. Neuro: The patient has significant right side facial droop with inability to close her eye against force. When patient is drooling, patient's tongue deviated to the right. The patient's palate elevate equally. The patient has 1/5 strength in her entire left side and 3/5 strength in entire right side. Reflexes are hyperactive on her left. Normoactive on her right. Babinski downgoing on the right, nonreactive on the left. No other abnormalities. LABORATORY DATA ON DATE OF DISCHARGE: White blood cell count 9.7, hemoglobin 11.4, sodium 134, potassium 3.7, chloride 101, carbon dioxide 27, anion gap 6, BUN 16, creatinine 0.76, glucose 107, calcium 91, magnesium 1.9, CRP 46.18. DISCHARGE PLAN: The patient will be discharged back to [facility]. Continue her PT and OT and for salvage determiner help with her care. The patient will be continued on Keppra. The patient should have seizure precaution while at the longterm. The patient should have pureed diet, heart healthy, no caffeine with no straws and thin liquids. The patient should work with PT and OT to restore her functional capacity. She should take Augmentin for 7 days for possible aspiration pneumonia, supported by her elevated CRP, crackles on exam and fevers of unknown origin. The patient should follow up with her primary care provider and if she is established with neurologist, should follow up with them as well. The patient should return to the hospital for new uncontrollable seizures. The patient should also return to the hospital for other alarming symptoms such as chest pain or shortness of breath. TIME SPENT: Approximately 60 minutes were spent on the discharge, 30 of which were spent [id number] with the patient obtaining history and physical and discussing treatment plan. AMELIA GALE [id number]/DEEPAK #: [id number] JOSE R
== END 2017-09-07 14:20 | DRG 100 ==
LOC: ED 07:55 → ICU 09:24 → MEDTELE 09-05 15:45
PROVIDERS: ADMIT Internal Medicine Critical Care Medicine; ATTEND Internal Medicine
PROC: 009U3ZX Drainage of Spinal Canal, Percutaneous Approach, Diagnostic (ICD-10-PCS; principal; 2017-09-04)
DX: G40.401 Other generalized epilepsy and epileptic syndromes, not intractable, with status epilepticus (principal); J69.0 Pneumonitis due to inhalation of food and vomit; I69.354 Hemiplegia and hemiparesis following cerebral infarction affecting left non-dominant side; R50.9 Fever, unspecified; E78.5 Hyperlipidemia, unspecified; Z79.1 Long term (current) use of non-steroidal anti-inflammatories (NSAID); Z79.899 Other long term (current) drug therapy; Z80.6 Family history of leukemia; Z82.49 Family history of ischemic heart disease and other diseases of the circulatory system; Z87.891 Personal history of nicotine dependence
CPT/HCPCS: 36415; 70250; 70450; 70544; 70551; 71045; 71275; 74018; 80048; 80053; 80061; 81003; 81015; 82164; 82945; 83605; 83735; 84100; 84145; 84157; 84484; 85025; 85610; 85730; 86140; 86592; 86618; 86635; 86788; 86789; 86850; 86900; 86901; 87070; 87205; 87529; 87641; 87798; 87899; 89051; 93005; 94760; 95813; 99285; A9270-GY; G8978-GP-CL; G8979-GP-CK; J1644; J2060; J3475; Q9967

== ENCOUNTER 2019-03-21 19:39 | Inpatient (IN) | payer MEDICARE ==
[2019-03-21] MEDS ORDERED: NS 0.9% 1000 ML** 1,000 ML IV ONE (19:44)
--- NOTE | 2019-03-21 20:01 | ED ---
Neurological HPI - HPI Summary HPI Summary: Time seen by provider: 1939. Christian roche called at 1943. LEVEL 5 CAVEAT secondary to confusion. The patient is a 68 y/o F arriving by ambulance to [facility] from [facility] with a chief complaint of slurred speech and confusion, per nursing facility. [facility] reports that the patient had been acting normal at dinner time, which she then walked up to her room and took a nap. Staff then found she was somnolent and difficult to arouse, and she had garbled speech and was confused unlike herself when they were able to awake her. History obtained from [facility] and medical records, EMS unsure of patients hx upon their arrival. She rates her symptoms 0/10 in severity. PMHx: CVA, syncope, chronic left knee pain. FHx: HTN. Former cigarette smoker, rare EtOH, no substance use. Medications reviewed. Allergies noted. - History of Current Complaint Chief Complaint: EDNeurologicalDeficit Stated Complaint: UNKNOWN REASON FOR VISIT PER EMS Time Seen by Provider: 03/21/19 19:40 Hx Obtained From: Family/Retort Condenser Attendant - [facility], Medical Records Hx From Patient Unobtainable Due To: Other - LEVEL 5 CAVEAT secondary to confusion Onset/Duration: Sudden Onset, Still Present Current Severity: Moderate Pain Intensity: 0 Pain Scale Used: 0-10 Numeric Character: Impaired Speech, Responsiveness Aggravating: Unknown Alleviating: Unknown Associated Signs and Symptoms: Positive: Decreased Level of Consciousness - somnolent, difficult to aroude TPA Considered: Yes - Additional Pertinent History Primary Care Physician: KEON - Allergy/Home Medications Allergies/Adverse Reactions: Allergies Allergy/AdvReac Type Severity Reaction Status Date / Time No Known Allergies Allergy Verified 03/25/17 12:08 Home Medications: Home Medications raNITIdine HCl [Ranitidine HCl] 150 mg PO BID 03/21/19 [History Confirmed ] traMADol TAB* [Ultram*] 50 mg PO BID 03/21/19 [History Confirmed 03/21/19] PMH/Surg Hx/FS Hx/Imm Hx Endocrine/Hematology History: Denies: Hx Diabetes Cardiovascular History: Reports: Hx Syncope - light headedness and fell on bed/ per son a week ago (03/18), Other Cardiovascular Problems/Disorders - Dr. Khoi PCP Denies: Hx Hypertension, Hx Pacemaker/ICD History: Denies: Hx Renal Disease Musculoskeletal History: Reports: Hx Back Problems - chronic back pain, Other Musculoskeletal History - chronic left knee pain Sensory History: Denies: Hx Contacts or Glasses, Hx Legally Blind, Hx Deafness, Hx Hearing Aid Opthamlomology History: Denies: Hx Contacts or Glasses, Hx Legally Blind Neurological History: Reports: Hx CVA Psychiatric History: Denies: Hx Panic Disorder - Surgical History Surgical History: Yes Surgery Procedure, Year, and Place: appendectomy - 25 years ago Hx Anesthesia Reactions: No Infectious Disease History: No Infectious Disease History: Denies: Traveled Outside the [place] in Last 30 Days - Family History Known Family History: Positive: Hypertension - Social History Alcohol Use: Rare Hx Substance Use: No Substance Use Type: Reports: None Hx Tobacco Use: Yes Smoking Status (MU): Former Smoker Type: Cigarettes Review of Systems Positive: Other - somnolent Positive: Slurred Speech All Other Systems Reviewed And Are Negative: No - Comments Additional Review of Systems Comments: LEVEL 5 CAVEAT secondary to confusion Physical Exam - Summary Physical Exam Summary: Appearance: Well-appearing elderly woman, Well-nourished, lying in bed comfortably Skin: Warm, dry, no obvious rash Eyes: sclera anicteric, no conjunctival pallor ENT: mucous membranes moist, pharynx appears normal Neck: Supple, nontender Respiratory: Clear to auscultation, no signs of respiratory distress Cardiovascular: Normal S1, S2. No murmurs. Normal distal pulses in tibial and radial bilaterally. Abdomen: Soft, nontender, normal active bowel sounds present Musculoskeletal: Normal, Strength/ROM Intact, Motor function in all 4 extremities is normal and symmetric. There is no rigidity or tremor noted. Neurological: A&Ox3, awake and alert. NIH - 7 (see scale), GCS - 15. Her exam is notable for marked though not complete aphasia with associated dysarthria and some trouble with inattention, which was fairly easy to overcome. Psychiatric: affect is normal, does not appear anxious or depressed Triage Information Reviewed: Yes Vital Signs On Initial Exam: Initial Vitals Temp Pulse Resp BP Pulse Ox 97.5 F 76 18 169/99 95 03/21/19 19:42 03/21/19 19:42 03/21/19 19:42 03/21/19 19:42 03/21/19 19:42 Vital Signs Reviewed: Yes Completion Of Physical Exam Limited Due To: Level 5 - secondary to confusion - Shiela Coma Scale Best Eye Response: 4 - Spontaneous Best Motor Response: 6 - Obeys Commands Best Verbal Response: 5 - Oriented Coma Scale Total: 15 Diagnostics - Vital Signs Vital Signs Temp Pulse Resp BP Pulse Ox 03/21/19 19:42 97.5 F 76 18 169/99 95 - Laboratory Result Diagrams: 03/22/19 08:44 03/22/19 08:44 Lab Statement: Any lab studies that have been ordered have been reviewed, and results considered in the medical decision making process. - Radiology CXR Radiology Interpretation Completed By: ED Physician Summary of Radiographic Findings: No acute process. ED physician has interpreted this report. Pending official read. - CT Brain CT CT Interpretation Completed By: Radiologist Summary of CT Findings: Impression: No acute intracranial abnormality. ED physician has reviewed this report. Head CTA CT Interpretation Completed By: Radiologist Summary of CT Findings: Impression: No acute findings. ED physician has reviewed this report. Brain CT (2) CT Interpretation Completed By: Radiologist Summary of CT Findings: Impression: No acute intracranial abnormality. Stable old right MCA territory infarction. ED physician has reviewed this report. - EKG 2019 Cardiac Rate: NL - 75 bpm EKG Rhythm: Sinus Rhythm Summary of EKG Findings: NSR at 75 BPM, P waves, QRS complex, and T waves are within normal limits, T waves and intervals are normal, no ischemic changes. This is a normal EKG. NIH Scale - NIH Scale Level of Consciousness: Alert/Keenly Responsive Ask Patient the Month and His/Her Age: [age] Correct/Not Aphasic Ask Pt to Open/Close Eyes and Implementation Engineer/Release Non-Paretic Hand: Neither Correctly Best Gaze (Only Horizontal Eye Movement): Normal Visual Field Testing: No Visual Loss Facial Paresis-Pt to Smile & Close Eyes or Grimace Symmetry: Normal/Symmetrical Motor Function - Right Arm: No Drift-Holds 10 Seconds Motor Function - Left Arm: No Drift-Holds 10 Seconds Motor Function - Right Leg: No Drift-Holds 10 Seconds Motor Function - Left Leg: No Drift-Holds 10 Seconds Limb Ataxia-Must be out of Proportion to Weakness Present: Absent - unable to understand Sensory (Use Pinprick to Test Arms/Legs/Trunk/Face): Normal Best Language (Describe Picture, Name Items): Severe Aphasia Dysarthria (Read Several Words): Slurs Some Words Extinction and Inattention: Inattention Total Score: 7 Re-Evaluation - Re-Evaluation First Eval Re-Evaluation Time: 20:20 Comment: Performed NIH exam (see scale) Second Eval Re-Evaluation Time: 20:44 Comment: We discussed results thus far and plan for admission. Course/Dx - Course Course Of Treatment: LEVEL 5 CAVEAT secondary to confusion. Christian roche called at 1943. Pt with hx of is a 68 y/o F arriving by ambulance from [facility] with concern for somnolence, difficulty to arouse, confusion, and slurred speech tonight. Upon physical exam, the pt appears to be awake and alert in acute distress, with NIH of 7 (see scale) and GCS of 15. TPA is considered. In the ED course, the pt was administered fluids, Activase. I discussed the pts case with stroke neurology at [facility] to initiate Telestroke at 2027. Brain CT is negative for acute intracranial abnormality. Head CTA is negative. EKG at 2019 reveals NSR at 75 bpm without ischemic changes. I spoke with Dr. Calzada at [facility] stroke center, and he agrees with TPA; he doesnt see a large vessel occlusion so the pt does not need to be transferred at this time. Blood work reveals creatinine 1.12, glucose 168, POC glucose 173, and alkaline phosphatase 125. She is given Labetalol for elevated blood pressure. Repeat Brain CT reveals stable chronic right MCA territory infarction, no acute hemorrhage, this was done due to onset of vomiting with a slight anisocoria to exclude a new hemorrhage. Chest x-ray, per my interpretation, reveals no acute process. In the ED, she began vomiting, and was administered Zofran. I spoke with Dr. Romero concerning the pt, and he accepts her for admission. Disposition plan discussed with the pt, and she agrees. She is diagnosed with CVA. 45 minutes CCT. - Diagnoses Provider Diagnoses: CVA (cerebral vascular accident) During the Visit The Following Alert/Code Occurred: Christian Roche - called at 1943 - Physician Notifications Discussed Care Of Patient With: Leno Calzada - [facility] stroke neurology Time Discussed With Above Provider: 20:50 Instructed by Provider To: Other - Telestroke to [facility] initiated at 2027. I discussed the pt's case with Dr. Calzada, who agrees with TPA consideration and recommends that the pt stay at [facility] with admission since he does not observe a large vessel occlusion in CT results. I spoke with Dr. Romero, hospitalist, who accepts the pt for admission at 2057. - Critical Care Time Critical Care Time: 30-74 min - 45 minutes Discharge ED - Sign-Out/Discharge Documenting (check all that apply): Patient Departure - Patient accepted for admission by Dr. Romero. Patient Received Moderate/Deep Sedation with Procedure: No - Discharge Plan Condition: Stable Disposition: ADMITTED TO [facility] - Billing Disposition and Condition Condition: STABLE Disposition: Admitted to [facility] - Attestation Statements Document Initiated by Montserrat: Yes Documenting Scribe: Chapis Marin Provider For Whom Montserrat is Documenting (Include Credential): Dr. Kareem Tovar MD Scribe Attestation: IChapis scribed for Dr. Kareem Tovar MD on 03/23/19 at 0451. Scribe Documentation Reviewed: Yes Provider Attestation: The documentation as recorded by the Chapis roberts accurately reflects the service I personally performed and the decisions made by me, Dr. Kareem Tovar MD Status of Scribe Document: Viewed
[2019-03-21] MEDS ORDERED: Alteplase* 100 MG VIAL ONE (20:16)
[2019-03-21 20:25] LABS: ABS Eosinophils 0.3 10^3/ul (0-0.6); ABS Lymphocytes 2.9 10^3/ul (1.0-4.8); ABS Monocytes 0.9 10^3/ul (0-0.8); ABS Neutrophils 4.4 10^3/ul (1.5-7.7); Eosinophil % 3.1 %; Hematocrit 36 % (35-47); Lymphocyte % 34.6 %; Mean Corpuscular HGB Conc 33 g/dL (31-36); Mean Corpuscular Hemoglobin 29 pg (27-31); Mean Corpuscular Volume 88 fL (80-97); Mean Platelet Volume 7.4 fL (7.4-10.4); Platelet Count 191 10^3/uL (150-450); Red Blood Count 4.09 10^6 /uL (3.70-4.87); Red Cell Distribution Width 14 % (10-15); White Blood Count 8.5 10^3/uL (3.5-10.8)
[2019-03-21 20:36] LABS: Activated Partial Thrombo Time 32.1 seconds (26.0-38.0); INR 0.97 (0.82-1.09)
[2019-03-21 20:37] LABS: Albumin 3.6 g/dL (3.2-5.2); Albumin/Globulin Ratio 1.1 (1-3); BUN/Creatinine Ratio 14.3 (8-20); EGFR African American 58.7 (>60); EGFR Non-African American 48.5 (>60); Globulin 3.2 g/dL (2-4); Potassium 3.6 mmol/L (3.5-5.0); Total Bilirubin 0.3 mg/dL (0.2-1.0); Total Protein 6.8 g/dL (6.4-8.9)
[2019-03-21 20:39] LABS: Troponin I 0.01 ng/mL (<0.04)
[2019-03-21] MEDS ORDERED: Alteplase* 100 MG VIAL IV ONE ×2 (20:42)
[2019-03-21] MEDS ORDERED: Ondansetron INJ* 2 MG/ML VIAL IV ONE (20:52)
[2019-03-21] MEDS ORDERED: Labetalol IV* 5 MG/ML 20 ML VIAL IV PUSH ONE (20:55)
[2019-03-22] MEDS ORDERED: Metoclopramide IV* 5 MG/ML 2 ML VIAL IV ONE (00:52)
[2019-03-22] MEDS ORDERED: Labetalol IV* 5 MG/ML 20 ML VIAL IV PUSH ONE (00:52)
[2019-03-22] MEDS ORDERED: Labetalol IV* 5 MG/ML 20 ML VIAL IV PUSH PRN (02:36)
[2019-03-22] MEDS ORDERED: Ondansetron INJ* 2 MG/ML VIAL IV PRN (02:42)
[2019-03-22] MEDS: levETIRAcetam 500 MG IVPREMIX* 500 MG/100 ML BAG IV SCH ×2 (03:53→16:37)
[2019-03-22] MEDS: Pantoprazole IV* 40 MG IV SCH (03:55)
--- NOTE | 2019-03-22 04:54 | HP ---
CC: Yessica Grider NP. ADMISSION HISTORY AND PHYSICAL: DATE OF ADMISSION: 03/22/19 CHIEF COMPLAINT: Confusion and slurred speech. HISTORY OF PRESENT ILLNESS: This is a 68-year-old female with a past medical history of stroke with residual left-sided weakness, especially in the left upper extremity and some mild dysarthria, was otherwise alert and oriented as per [facility] staff up until 03/21/19 around dinnertime, but the staff after that by 7 o'clock noted that she was having some slurred speech, was confused, at which point she was sent to the ER for further evaluation. In the ER, a supriya reddy was called and she was started on TPA. The patient herself was still confused, so the rest of the history was obtained by reviewing records. After initiation of TPA, the patient was noted to have unequal pupils, at which point TPA was stopped with a repeat CT was done. The repeat CT did not show any intracranial bleed, so TPA was immediately resumed. The patient still was noted to be moving all 4 extremities with the exception of left upper extremity which had a little bit of spastic paralysis which might be her baseline, but she still was moving it minimally and intermittently was following commands. 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 HOME MEDICATIONS: The patient is currently documented to be on: 1. Tramadol 50 mg p.o. b.i.d. 2. Ranitidine 150 mg p.o. b.i.d. 3. Tylenol 650 q.6 hours p.r.n. 4. Keppra 500 mg p.o. b.i.d. 5. Atorvastatin 20 mg daily at bedtime. 6. Aspirin 81 mg oral daily. ALLERGIES: No known documented drug allergies. FAMILY HISTORY: One of her sons of leukemia and daughter has high blood pressure. SOCIAL HISTORY: There is a documentation that the patient is half pack per day smoker, unclear for how long. No previous history of alcohol or drug abuse documented. The patient is full code according to the MOLST that was sent from [facility] with her grandson being surrogate decision maker, Pravin [phone]. REVIEW OF SYSTEMS: Unable to obtain due to the patient's mental status change. PHYSICAL EXAMINATION GENERAL: The patient is arousable by name; however, was having difficulty following commands. VITAL SIGNS: In the ER, BP was noted to be 161/99, heart rate 64, respiratory rate 18, saturating 94% on room air, temperature was noted to be 97.5 HEAD AND NECK: Atraumatic and normocephalic. Left pupil was dilated at 4 mm with right pupil being 2. Oral mucosa was dry. Tongue appears to be midline. There was no obvious facial asymmetry that I could appreciate. NECK: Supple. No jugular venous distention. LUNGS: Clear to auscultation bilaterally. HEART: S1 and S2. Regular rate and rhythm. ABDOMEN: Soft, nontender, nondistended. EXTREMITIES: No cyanosis, clubbing, or edema. NEUROLOGIC: The patient was not following commands; however, the patient was noted to be moving all 4 extremities with the exception of the left upper extremity being in a spastic position and moving minimally. LABORATORY DATA: CBC was unremarkable. Coagulation profile was unremarkable. Comprehensive metabolic panel shows creatinine minimally elevated at 1.12. Alkaline phosphatase minimally elevated at 125. LFTs within normal limits and lipid profile shows LDL at 71. Imaging studies including CT brain showed no new acute intracranial abnormality , stable old right MCA territory infarct was noted, and a repeat CT brain again was unchanged with ASPECT score being 10. CTA of the brain was also performed , showed no acute findings in both the head and neck. EKG showed sinus rhythm at 75 beats per minute without any ST elevation. Portable chest x-ray was otherwise clear, full official radiology read is still pending. IMPRESSION: This is a 68-year-old female with a history of large right middle cerebral artery stroke, here again with another episode of slurred speech and confusion likely acute cerebrovascular accident, status post TPA. 1. Slurred speech. Questionable acute stroke, status post TPA. We will continue to monitor closely in ICU and follow post TPA protocol with post TPA neuro checks and monitor vital signs closely with permissive hypertension. We will repeat an MRI of the brain in the morning to see for any minute deficits, any minute changes that would indicate the acute stroke and consult Neurology to evaluate the patient. Given the patient received TPA, we will hold aspirin. We will also get a swallow evaluation in the morning and physical therapy before starting the patient on any p.o. medications or diet. 2. History of seizure disorder. We will change the Keppra from p.o. to IV. 3. History of gastroesophageal reflux disease. Start the patient IV Protonix during the hospital stay. 4. DVT prophylaxis: The patient already received TPA. We will hold any Lovenox until after 24 hours. 5. Code status: The patient is full code with a trial of intubation and trial of feeding per the MOLST form. [id number]/CPS #: [id number] MTDD
[2019-03-22] MEDS: NS 0.9% 1000 ML** 1,000 ML IV SCH ×2 (08:20→20:40)
[2019-03-22 09:03] LABS: ABS Basophils 0.1 10^3/ul (0-0.2); ABS Lymphocytes 1.5 10^3/ul (1.0-4.8); ABS Neutrophils 10.5 10^3/ul (1.5-7.7); Eosinophil % 0.3 %; Hematocrit 37 % (35-47); Hemoglobin 12.4 g/dL (12.0-16.0); Lymphocyte % 11.2 %; Mean Corpuscular HGB Conc 33 g/dL (31-36); Mean Corpuscular Hemoglobin 29 pg (27-31); Mean Corpuscular Volume 88 fL (80-97); Mean Platelet Volume 7.6 fL (7.4-10.4); Platelet Count 193 10^3/uL (150-450); Red Blood Count 4.23 10^6 /uL (3.70-4.87); Red Cell Distribution Width 15 % (10-15)
[2019-03-22 09:28] LABS: Calcium 8.9 mg/dL (8.6-10.3); EGFR African American 61.2 (>60); EGFR Non-African American 50.6 (>60); Potassium 4.3 mmol/L (3.5-5.0)
[2019-03-22] MEDS: Labetalol IV* 5 MG/ML 20 ML VIAL IV PUSH PRN (09:43)
[2019-03-22] MEDS ORDERED: LORazepam INJ* 2 MG/ML 1 ML VIAL IV PUSH ONE (10:26)
[2019-03-22] MEDS ORDERED: Lorazepam PYXIS KEY PRN (10:26)
--- NOTE | 2019-03-22 10:47 | PN ---
Progress Note - Progress Note Date of Service: 03/22/19 Note: Event Note Called to see patient, who was admitted w/ aphasia, suspect stroke, received tPA in ER. Had neurology input by telemedicine. Had unequal pupils in ED after tPA started, repeat head CT negative, shows old RT-sided stroke. Patient has been decreasingly responsive, earlier nurse reports eyes open, not intact to confrontation. Received Keppra IV in ER, has more ordered at 3PM Selected Entries 03/22/19 10:30 Pulse Rate 66 Blood Pressure 157/88 (mmHg) O2 Sat by Pulse 90 Oximetry Now she is sleeping, arouses only to shaking. Eyes remained closed. When opened by nurse, deviated to LT, but able to come to center at times. There is rotatory nystagmus. LT arm/leg contracted/hypertonic, RT arm/leg supple. Lungs: clear Heart: RRR A/P: possible seizure, vs worsening ischemic stroke, vs IMPLEMENTATION CONSULTANT bleeding from tPA. Discussed with Dr. Prado. He will see patient soon. Will try 2 mg IV ativan, may be having status epilepticus. EEG today.
[2019-03-22] MEDS ORDERED: NS 0.9% IVPB ONE (11:47)
[2019-03-22] MEDS ORDERED: FOSPHENYTOIN IVPB ONE (11:47)
--- NOTE | 2019-03-22 13:52 | CONS ---
NEUROLOGY CONSULTATION: DATE OF CONSULT: 03/22/19 LOCATION: She is in the intensive care unit, bed 11. HOSPITALIST: Dr. Diaz. CHIEF COMPLAINT: Unresponsiveness. HISTORY OF PRESENT ILLNESS: Haroldo Saavedra is a 68-year-old left-handed woman who I had previously seen in consultation in 2017 when she presented with the left hemiparesis and right gaze deviation. She was ultimately diagnosed with a right middle cerebral artery stroke. She currently resides at [facility]. She apparently was confused and unresponsive last night at [facility] and so presented to the emergency room last evening. She was seen by the emergency room physician at 1940 hours and a code reddy was called. A telestroke consultation was carried out. According to the emergency room records, she was normal at dinnertime and went and took a nap, and when the staff went to find her, she was somnolent and difficult to arouse. She had garbled speech and was confused. Her NIH stroke scale in the emergency room was scored at 7 due to severe aphasia, slurred speech, and inability to answer both questions correctly. However, she is also listed as having normal strength in the left side, so the scoring is somewhat dubious. I was called by Dr. Diaz early this morning. Apparently while she was getting tPA via telestroke recommendations, she became less responsive. A repeat CT scan of the brain was obtained and was unchanged from the admission scan about an hour and 45 minutes earlier. Reviewed both sets of images and I agree. There is extensive encephalomalacia of the right temporal parietal area and bilateral basal ganglia calcifications but no indications of hemorrhage. She had a CT angiogram of the head and neck while in the emergency room. There was an addendum indicating possible occlusion involving the branches of left middle cerebral artery M2 segment. I reviewed the images and it looks reasonably unremarkable to me. She has been in sinus rhythm. She was hospitalized in 2018 with repetitive seizures. She had an EEG which revealed intermittent slowing from the right hemisphere as well as more persistent slowing from the left hemisphere. She has been on Keppra since. PAST MEDICAL HISTORY: Notable for the stroke, subsequent seizures, hyperlipidemia, hypertension, tobacco use. I am not sure if the tobacco use is ongoing but it is listed at in her history of present illness. When I saw her in 2017, she had just moved to the area and did not have frequent physicians. MEDICATIONS: At home consist of: 1. Tramadol 50 mg p.o. b.i.d. 2. Ranitidine 150 mg p.o. b.i.d. 3. Keppra 500 mg p.o. b.i.d. 4. Atorvastatin 20 mg p.o. daily. 5. Aspirin 81 mg p.o. daily. Medications here in the hospital consist of: 1. Keppra 500 mg IV q.12 hours. 2. Ondansetron 4 mg IV q.4 hours as needed for nausea. 3. Protonix 40 mg IV q.24 hours. REVIEW OF SYSTEMS: From the patient is unproductive. She only produces occasional one-word answers and nods her head intermittently to questions. PHYSICAL EXAM: She is well-nourished and well-hydrated woman lying in the intensive care unit bed. Most recent temperature 99.5 temporally, blood pressure 142/91, heart rate in the 70s and regular. Respiratory rate is 18 and oxygen saturation is 94%. Head is atraumatic. Oral mucosa is difficult to see, but I do not see any evidence of oral trauma. She has an ecchymosis in the right jaw. Her neck is supple. Heart tones are normal without murmurs. I do not auscultate any cervical bruits, although breath sounds are fairly persistent. Neurological exam: Pupils are fairly equal reacting from about 3.5 down to 2 mm. She has intermittent left gaze deviation. She then is more responsive with ability to visually tract. Her facial musculature is notable for mild flattening of the left nasolabial fold. She weakly protrudes her tongue. She occasionally produces single words with dysarthric speech. She has a spastic left hemiparesis involving the arm more than the leg, both are involved. She has purposeful movements of the right arm and leg. She has a left Babinski sign. Right plantar response is flexor. DIAGNOSTIC STUDIES/LAB DATA: In addition to the imaging, includes a CBC with an elevated white blood cell count at 13, there is a left shift with 10.5% neutrophils. Urinalysis has not yet been done. Chemistries notable for mildly elevated creatinine of 1.08, glucose at admission was 173 and this morning is 116. Alkaline phosphatase on admission is mildly elevated to 125. The rest of the chemistry profile is unremarkable. Cholesterol on admission was 140, LDL 71. A chest x-ray was reported as normal. EEG at the bedside is reviewed. Formal report is pending. She has a slowing from the right hemisphere but I do not see any epileptiform discharges. This study is limited because of muscle including bitemporalis and chewing artifact. Formal report is pending. IMPRESSION AND PLAN: My suspicion is that Ms. Saavedra is having seizures rather than a cerebrovascular event. She has left gaze deviation which would correspond to her cicatrix from her prior stroke. I have put in orders to load her with fosphenytoin 1200 mg. I put in orders to get a levetiracetam level on blood drawn in the emergency room last night. An MRI scan of the brain has been ordered and is pending. I will repeat her EEG tomorrow morning. I will follow her along with you as long as she is here until we sign off. [id number] #: [id number]
[2019-03-22] MEDS: cefTRIAXone(*) 1 GM in NS 0.9% 50 ML* 50 ML IVPB SCH (16:11)
[2019-03-23] MEDS: levETIRAcetam 500 MG IVPREMIX* 500 MG/100 ML BAG IV SCH (03:34)
[2019-03-23] MEDS: Pantoprazole IV* 40 MG IV SCH (03:45)
[2019-03-23 05:31] LABS: ABS Basophils 0.1 10^3/ul (0-0.2); ABS Eosinophils 0.2 10^3/ul (0-0.6); ABS Lymphocytes 2.4 10^3/ul (1.0-4.8); ABS Monocytes 1.1 10^3/ul (0-0.8); ABS Neutrophils 5.7 10^3/ul (1.5-7.7); Eosinophil % 1.7 %; Hematocrit 33 % (35-47); Hemoglobin 11.5 g/dL (12.0-16.0); Lymphocyte % 25.4 %; Mean Corpuscular HGB Conc 35 g/dL (31-36); Mean Corpuscular Hemoglobin 31 pg (27-31); Mean Corpuscular Volume 88 fL (80-97); Mean Platelet Volume 7.4 fL (7.4-10.4); Nucleated Red Blood Cells % 0.2; Platelet Count 167 10^3/uL (150-450); Red Blood Count 3.77 10^6 /uL (3.70-4.87); Red Cell Distribution Width 14 % (10-15); White Blood Count 9.4 10^3/uL (3.5-10.8)
[2019-03-23 05:47] LABS: BUN/Creatinine Ratio 12.8 (8-20); Calcium 8.2 mg/dL (8.6-10.3); EGFR African American 60.6 (>60); EGFR Non-African American 50.1 (>60); Potassium 3.8 mmol/L (3.5-5.0)
--- NOTE | 2019-03-23 10:29 | CONS ---
NEUROLOGY FOLLOWUP CONSULTATION: DATE OF FOLLOWUP: 03/23/19. LOCATION: She is in the intensive care unit, bed 5. HOSPITALIST: Dr. Diaz. HISTORY OF PRESENT ILLNESS: Since yesterday, Ms. Saavedra had no unusual events. She has not had any reportable episodes of unawareness. She has not had any new weakness. MEDICATIONS: Reviewed and she is on: 1. Ceftriaxone 1 g q.24 hours IV. 2. Labetalol 10 mg IV p.r.n. systolic blood pressure greater than 165. 3. Keppra 500 mg IV q.12 hours. 4. Protonix 40 mg IV q.24 hours. 5. She received 1200 mg of IV fosphenytoin yesterday. PHYSICAL EXAMINATION: On exam, she is awake and alert. She is a little sleepy. Temperature 98.4, blood pressure 127/81, heart rate 70, respiratory rate is 14, oxygen saturation is 95% on room air. On exam, she is awake and provides single word responses. She nods her head occasionally, but not always appropriately. Her heart tones are normal. Eye movements are full. Facial musculature notable for left lower facial weakness. She has a left spastic hemiparesis, worse in the arm than the leg. She has good strength in the right arm and leg. I can get her to raise her right leg up and her right arm up. She follows commands about 50% of the time. DIAGNOSTIC STUDIES/LAB DATA: Notable for normal CBC today other than the hemoglobin dropping to 11.5. Chemistries today notable for calcium of 8.2, creatinine stable at 1.09. Cholesterol on admission was 140, LDL 71. IMPRESSION: My impression is that she probably had a seizure rather than a repeat cerebrovascular event. MRI scan of the brain is pending. EEG was done earlier today and I will review it later today. We will go ahead and increase her Keppra to 500 in the morning and 1000 at night. I will continue to follow her. [id number]/[facility] #: [id number] JOSE R
--- NOTE | 2019-03-23 13:07 | PN ---
Subjective Date of Service: 03/23/19 Interval History: Patient cannot give history. MRI planned today, but phone numbers for [facility] at [facility] and here are wrong or lead to message where no voicemail can be left. Per nursing, following commands intermittently. Family History: Unchanged from Admission Social History: Unchanged from Admission Past Medical History: Unchanged from Admission Objective Active Medications: Sodium Chloride (Ns 0.9% 1000 Ml) 1,000 mls @ 100 mls/hr IV PER RATE [facility] Last Admin: 03/22/19 20:40 Dose: 100 mls/hr Ceftriaxone Sodium 1 gm/ (Sodium Chloride) 50 mls @ 100 mls/hr IVPB Q24H [facility] Last Admin: 03/22/19 16:11 Dose: 100 mls/hr Fosphenytoin Sodium 1,000 mg/ (Sodium Chloride) 70 mls @ 208 mls/hr IVPB Q12HR [facility] Labetalol HCl (Trandate Iv*) 10 mg IV PUSH Q6H PRN PRN Reason: Systolic Bp Greater Than:165 Last Admin: 03/22/19 09:43 Dose: 10 mg Miscellaneous (Ativan Pyxis Andino) 1 ea N/A .ATIVAN IV ANDINO PRN PRN Reason: PYXIS ANDINO Ondansetron HCl (Zofran Inj*) 4 mg IV Q4H PRN PRN Reason: NAUSEA/VOMITING Pantoprazole Sodium (Protonix Iv*) 40 mg IV Q24H [facility] Last Admin: 03/23/19 03:45 Dose: 40 mg Vital Signs - 8 hr 03/23/19 03/23/19 03/23/19 05:30 06:00 06:30 Temperature Pulse Rate 63 58 58 Respiratory 18 15 17 Rate Blood Pressure 110/72 117/77 115/57 (mmHg) O2 Sat by Pulse 96 94 94 Oximetry 03/23/19 03/23/19 03/23/19 11:30 12:00 12:17 Temperature 36.8 C Pulse Rate 83 66 Respiratory 18 Rate Blood Pressure 147/92 (mmHg) O2 Sat by Pulse 96 96 Oximetry 03/23/19 03/23/19 03/23/19 12:28 12:30 12:37 Temperature Pulse Rate 58 Respiratory 15 15 Rate Blood Pressure 161/107 142/62 (mmHg) O2 Sat by Pulse 95 97 Oximetry Oxygen Devices in Use Now: None Appearance: sleeping, arouses to non-painful physical stimuli Eyes: - - LT pupil 6mm, RT pupil 4 mm Neck: NL Appearance and Movements; NL JVP Respiratory: Symmetrical Chest Expansion and Respiratory Effort, Clear to Auscultation Cardiovascular: NL Sounds; No Murmurs; No JVD, RRR Abdominal: NL Sounds; No Tenderness; No Distention Neurological: - - not able to answer any questions, follows commands w/ all 4 extrem Lines/Tubes/Other Access: Clean, Dry and Intact Peripheral IV Nutrition: - - NPO Result Diagrams: 03/23/19 05:00 03/23/19 05:00 Microbiology and Other Data: Microbiology 03/22/19 11:43 Nasal Screen MRSA (PCR) - Final Nasal Mrsa Not Detected Assess/Plan/Problems-Billing Assessment: 68 year old with h/o seizure disorder, admitted w/ aphasia, had tPA for possible stroke - Patient Problems (1) Seizure Current Visit: No Status: Acute Priority: High Code(s): R56.9 - UNSPECIFIED CONVULSIONS SNOMED Code(s): 90453595 Comment: -Appreciate Neurology input. 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 Continue secondary prevention with ASA and statin. No clear new stroke. Will have PT, OT, speech eval When at baseline will go back to [facility]. (3) DVT prophylaxis Current Visit: No Status: Acute Priority: Low Code(s): GLG2701 - SNOMED Code(s): 411690886 Comment: - SCDs, start SC heparin now that tPA out of system Status and Disposition: inpatient, appropriate for Med
[2019-03-23] MEDS: Heparin VIAL(*) 5000 UNITS/ML VIAL (FIVE THOUSAND) SUBCUT SCH ×2 (13:37→23:26)
[2019-03-23] MEDS: cefTRIAXone(*) 1 GM in NS 0.9% 50 ML* 50 ML IVPB SCH (15:02)
[2019-03-23] MEDS: NS 0.9% 1000 ML** 1,000 ML IV SCH (15:04)
[2019-03-23] MEDS: levETIRAcetam 1000MG IVPREMIX* 1,000 MG/100 ML BAG IVPB SCH (17:31)
--- NOTE | 2019-03-23 20:53 | EEG ---
ELECTROENCEPHALOGRAPHY: DATE OF STUDY: 03/23/19 REFERRING PROVIDER: Dr. Prado. LOCATION: She is an inpatient in intensive care unit. CLINICAL HISTORY: Prior history of stroke, episode of unresponsiveness yesterday. CURRENT MEDICATIONS: Include: 1. Keppra. 2. Rocephin. 3. Trandate. 4. Lorazepam. 5. Zofran. REPORT: This 19-channel EEG is remarkable for background rhythms consisting of diffuse theta range slowing. Slower rhythms are noted from the left hemisphere. Phase reversing sharp waves are noted intermittently about the left mid temporal region. There are no clinical events. Activation procedures are not attempted. CLINICAL IMPRESSION: Abnormal EEG due to generalized slowing of background rhythms, worse from the left hemisphere, as well as phase-reversing sharp waves in the left mid temporal region. 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 [id number]/[facility] #: [id number] MTDD
--- NOTE | 2019-03-23 20:53 | EEG ---
ELECTROENCEPHALOGRAPHY: DATE OF STUDY: 03/22/19 REFERRING PROVIDER: Osmar Diaz MD. LOCATION: She is in the intensive care unit. CLINICAL HISTORY: Episode of slurred speech and confusion without full recovery. The patient received TPA in the emergency room. MEDICATIONS: Include: 1. Keppra. 2. Protonix. 3. Trandate. 4. Zofran. REPORT: This 19-channel EEG is remarkable for background rhythms consisting of mixed theta and some alpha rhythms with slow rhythm seen centrally. Also slow rhythms in the theta and delta range are seen from the left hemisphere and between periods of muscle artifact, which is abundant. The patient apparently follows commands very intermittently. There is fairly frequent bi-temporalis muscle artifact and also chewing artifact. Occasionally higher voltage delta slowing is noted, which appears to be artifactual and emanates largely from the central region. There are no clinical events otherwise. There are no clear sleep stages. There are no epileptiform discharges during this recording. CLINICAL IMPRESSION: Abnormal EEG due to generalized slowing of background rhythms with more abundant slowing noted from the left hemisphere. This tracing is compatible with diffuse cerebral dysfunction with more severe neuronal dysfunction from the left hemisphere. There are no epileptiform features during this recording. [id number]/[facility] #: [id number] [facility]
[2019-03-23] MEDS ORDERED: Fosphenytoin(*) 1,000 MG in NS 0.9% 50 ML* 50 ML IVPB SCH ×2 (21:00→22:30)
[2019-03-24] MEDS: Pantoprazole IV* 40 MG IV SCH (04:16)
[2019-03-24] MEDS: levETIRAcetam 1000MG IVPREMIX* 1,000 MG/100 ML BAG IVPB SCH ×2 (06:02→16:42)
[2019-03-24] MEDS: Heparin VIAL(*) 5000 UNITS/ML VIAL (FIVE THOUSAND) SUBCUT SCH ×3 (06:06→22:21)
[2019-03-24 07:06] LABS: ABS Basophils 0.1 10^3/ul (0-0.2); ABS Eosinophils 0.2 10^3/ul (0-0.6); ABS Lymphocytes 2.6 10^3/ul (1.0-4.8); ABS Neutrophils 5.2 10^3/ul (1.5-7.7); Hematocrit 39 % (35-47); Hemoglobin 12.7 g/dL (12.0-16.0); Mean Corpuscular HGB Conc 33 g/dL (31-36); Mean Corpuscular Hemoglobin 30 pg (27-31); Mean Corpuscular Volume 91 fL (80-97); Mean Platelet Volume 7.5 fL (7.4-10.4); Platelet Count 179 10^3/uL (150-450); Red Blood Count 4.26 10^6 /uL (3.70-4.87); Red Cell Distribution Width 15 % (10-15); White Blood Count 9.1 10^3/uL (3.5-10.8)
[2019-03-24 07:14] LABS: Calcium 8.9 mg/dL (8.6-10.3); Potassium 3.7 mmol/L (3.5-5.0)
[2019-03-24 07:20] LABS: BUN/Creatinine Ratio 13.3 (8-20); EGFR Non-African American 68.6 (>60)
--- NOTE | 2019-03-24 08:39 | PN ---
Subjective Date of Service: 03/24/19 Interval History: HOSPITALIST PROGRESS NOTE Patient seen and examined at bedside. Care reviewed and d/w Mario Buenrostro RN. Called by RN because patient had what appeared to be 5 seconds of Vfib on Telemetry. Patient was evaluated at bedside, responsive to painful stimuli only at this time. Family History: Unchanged from Admission Social History: Unchanged from Admission Past Medical History: Unchanged from Admission Objective Active Medications: Heparin Sodium (Porcine) (Heparin Vial(*)) 5,000 units SUBCUT Q8HR [facility] Last Admin: 03/24/19 06:06 Dose: 5,000 units Sodium Chloride (Ns 0.9% 1000 Ml) 1,000 mls @ 100 mls/hr IV PER RATE [facility] Last Admin: 03/23/19 15:04 Dose: 100 mls/hr Ceftriaxone Sodium 1 gm/ (Sodium Chloride) 50 mls @ 100 mls/hr IVPB Q24H [facility] Last Admin: 03/23/19 15:02 Dose: 100 mls/hr Levetiracetam (Keppra Iv Premix*) 1,000 mg in 100 mls @ 400 mls/hr IVPB Q12H [facility] Last Admin: 03/24/19 06:02 Dose: 400 mls/hr Fosphenytoin Sodium 1,000 mg/ (Sodium Chloride) 70 mls @ 208 mls/hr IVPB Q12H [facility] Last Admin: 03/23/19 23:30 Dose: 208 mls/hr Labetalol HCl (Trandate Iv*) 10 mg IV PUSH Q6H PRN PRN Reason: Systolic Bp Greater Than:165 Last Admin: 03/22/19 09:43 Dose: 10 mg Ondansetron HCl (Zofran Inj*) 4 mg IV Q4H PRN PRN Reason: NAUSEA/VOMITING Pantoprazole Sodium (Protonix Iv*) 40 mg IV Q24H [facility] Last Admin: 03/24/19 04:16 Dose: 40 mg Vital Signs - 8 hr 03/24/19 03/24/19 03:43 08:00 Temperature 98.4 F Pulse Rate 70 Respiratory 18 18 Rate Blood Pressure 135/81 (mmHg) O2 Sat by Pulse 96 Oximetry Oxygen Devices in Use Now: None Appearance: Elderly lady lying in bed in [facility], having an EEG done Eyes: No Scleral Icterus, - - Pupils 4mm reactive to light Ears/Nose/Mouth/Throat: Mucous Membranes Moist Neck: Trachea Midline Respiratory: Symmetrical Chest Expansion and Respiratory Effort, Clear to Auscultation Cardiovascular: RRR - Normal S1 and S2 Abdominal: NL Sounds; No Tenderness; No Distention Neurological: - - Responds to painful stimuli only Result Diagrams: 03/24/19 05:48 03/24/19 05:48 Microbiology and Other Data: Microbiology 03/22/19 11:43 Nasal Screen MRSA (PCR) - Final Nasal Mrsa Not Detected Assess/Plan/Problems-Billing Assessment: Mrs Saavedra is a 68yo M with 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 - Patient Problems (1) Ventricular fibrillation Comment: - Ventricular fibrillation vs artifact on Telemetry. - Patient responds only to painful stimuli at this time, so unclear if symptomatic or not. - Check Echo. - Cardiology consult requested. - Transfer to ICU. (2) Seizure Comment: - D/w Neurology - lethargy likely secondary to post ictal state, Keppra and Phenytoin. EEG did not show persistent seizures. - Phenytoin level elevated at 22.7 - will discontinue it. - Continue IV Keppra. (3) CVA (cerebral vascular accident) Comment: - History of right MCA CVA. - Awaiting MRI brain. (4) Fever Comment: - Had one episode of temperature 100.8 - on Ceftriaxone. - Check UA. (5) DVT prophylaxis Comment: - SQ heparin. (6) Full code status Status and Disposition: Inpatient.
[2019-03-24 09:24] LABS: Phenytoin 22.7 mcg/mL (10-20)
[2019-03-24] MEDS ORDERED: Perflutren Lipid Microsphere* 3 ML VIAL ONE (12:50)
--- NOTE | 2019-03-24 15:19 | CONS ---
NEUROLOGY FOLLOWUP CONSULT: DATE OF CONSULT: 03/24/19 LOCATION: She was initially in 450 and is now in ICU bed 11. HOSPITALIST: Dr. Arreola. CHIEF COMPLAINT: Diminished responsiveness, seizures. INTERVAL HISTORY: Since yesterday, I was starting to round early this morning and I was told by her nurse that [place] responded only to pain. She then showed me a rhythm strip that showed possible ventricular fibrillation. I evaluated the patient and she did rouse to voice and gentle shaking to open her eyes and smile at me. There was no ictal activity or gaze deviation. I notified Dr. Arreola and she was transferred to the intensive care unit. Also, reviewed her medications, outlined below, and found that she received a 1000 mg of fosphenytoin at least twice. CURRENT MEDICATIONS: Consist of ondansetron 4 mg IV q.4 hours p.r.n. nausea, Protonix 40 mg IV q.24 hours, Keppra 1000 mg IV q.12 hours, labetalol 10 mg IV push q.6 hours p.r.n. hypertension, heparin 5000 units subcutaneous q.8 hours, ceftriaxone 1 g IV q.24 hours. PHYSICAL EXAMINATION: On examination this afternoon, she is somnolent, but I can get her to arouse with shaking her a little bit and by calling her name. She again opens her eyes and makes eye contact and smiles. However, I cannot get her to any questions or follow commands. Temperature is 97.7 earlier today, blood pressure running about 140 to 160 systolic over 90 to 106 diastolic. Respiratory rate is 16 and oxygen saturation is 95% on supplemental oxygen. Neck is supple. Her right cheek shows an evolving bruise, which was present the morning after her TPA. I do not see any oral trauma. She has a spastic left hemiparesis. DIAGNOSTIC STUDIES/LAB DATA: Laboratory data includes a phenytoin level this morning at 05:48 of 22.7. Her basic metabolic profile is unremarkable. CBC today is within normal limits. There is still no urinalysis in the records. Her EEG yesterday revealed diffuse swelling as well as focal epileptiform discharges from the left mid temporal region. EEG today was reviewed and it reveals generalized slowing with rare poorly formed sharp waves in the left mid temporal region and is therefore improved study. It still shows diffuse slowing. EKG done earlier today was notable for ST-T wave changes in the anterolateral leads. She appears to have flipped her T-waves from 3 days ago when she had the last EKG. IMPRESSION: Impression is that of persistent somnolence, probably from anticonvulsants including a fairly rapid escalation of fosphenytoin to a level of 22 mcg. I will hold fosphenytoin, but continue Keppra. Her EEG looks improved. So, I do not think she is having active seizures. I discussed with Dr. Arreola her EKG changes. I will continue to follow her along. [id number]/[facility] #: [id number] [facility]
--- NOTE | 2019-03-24 15:54 | ECHO ---
*[facility]* [place] [address] Fax #: [phone] Transthoracic Echocardiogram Patient: Haroldo Saavedra : 1950 Study Date: 03/24/2019 Age: 68 Gender: F HR: 71 bpm Height: 63 in /160 cm BSA: 1.67 m^2 Weight: 140.7 lb /64 kg BMI: 25 kg/m^2 *Heavy Forger Helper: * Armida Rivera [facility] *Referring Physician: * Graciela BojorquezReading Physician: * Terrance Alcazar MD Indications: Abnormal EKG. History: Cerebrovascular accident. Risk factors: Current tobacco use. Dyslipidemia. Conclusions Summary: - Left ventricle: Systolic function is normal. The estimated ejection fraction is 50-55%. Although no diagnostic regional wall motion abnormality is identified, this possibility cannot be completely excluded on the basis of this study. Smal left ventricle apical outpouching of unclear significance. No evidence of thrombus in apex. - Right ventricle: Systolic function is normal. - Mitral valve: There is no evidence of stenosis. There is trace regurgitation. - Aortic valve: There is no significant regurgitation. - Tricuspid valve: There is no significant regurgitation. - Pulmonary arteries: Systolic pressure can not be accurately estimated. - Compared to study of 03/26/17, there is little change. Study data: Transthoracic echocardiogram. Procedure: Transthoracic echocardiography was performed. Image quality was suboptimal. The study was technically limited due to poor acoustic window availability and poor patient compliance. Intravenous Definity , 3 mlswas administered. Complete 2D, spectral Doppler, and color flow Doppler. Location: ICU Patient status: Inpatient. Patient room number: 11. Rhythm: Normal sinus rhythm. Findings Left ventricle: The cavity size is normal. Wall thickness is mildly increased. Systolic function is normal. The estimated ejection fraction is 50-55%. Although no diagnostic regional wall motion abnormality is identified, this possibility cannot be completely excluded on the basis of this study. There is no consistent Doppler evidence of clinically significant diastolic dysfunction. Right ventricle: The cavity size is normal. Wall thickness is mildly increased. Systolic function is normal. Left atrium: The atrium is normal in size. Right atrium: The atrium is normal in size. Mitral valve: The Mitral valve annulus appears calcified. The leaflets are mildly thickened. There is no evidence of stenosis. There is trace regurgitation. Aortic valve: The valve is trileaflet. The leaflets are normal thickness. There is no evidence of stenosis. There is no significant regurgitation. Tricuspid valve: The leaflets are normal thickness. There is no evidence of stenosis. There is no significant regurgitation. Pulmonic valve: Not well visualized. There is no significant regurgitation. Aorta: The aortic root appears normal. The aortic arch appears normal. Pericardium: There is no significant pericardial effusion. Pulmonary arteries: Not well visualized. Systolic pressure can not be accurately estimated. Systemic veins: Inferior vena cava: The vessel is normal in size. There is (< 50%) respiratory change in the IVC dimension. Measurements Left ventricle Value Ref Aortic valve Value Ref MCKENZIE, LAX 4.0 cm 3.8 - 5.2 Prakash diam, ED 2.2 cm ---- ESD, LAX 2.9 cm 2.2 - 3.5 Peak v, S 0.84 m/sec ---- FS, LAX 29 % 27 - 45 VTI, S 15.6 cm ---- PW, ED, LAX (H) 1.2 cm 0.6 - 0.9 Mean grad, S 2.0 mm Hg ---- EF 56 % 54 - 74 Peak grad, S 3.0 mm Hg ---- E', lat prakash, TDI (L) 5.3 cm/sec >=10.0 LVOT/AV, VTI ratio 0.83 -- -- E/e', lat prakash, 9 TDI Mitral valve Value Ref E', med prakash, TDI (L) 3.8 cm/sec >=7.0 Peak E 0.47 m/sec -- -- E/e', med prakash, 12 Peak A 0.7 m/sec ---- TDI Decel time 145 ms ---- E', avg, TDI 4.6 cm/sec Peak E/A ratio 0.7 ---- E/e', avg, TDI 10 <=14 Pulmonic valve Value Ref LVOT Value Ref Peak v, S 0.7 m/sec ---- Peak mauro, S 0.8 m/sec Peak grad, S 2.0 mm Hg ---- VTI, S 13.0 cm Peak grad, S 3 mm Hg Aortic root Value Ref Mean grad, S 1 mm Hg Root diam 3.4 cm <3.9 Ventricular septum Value Ref Ascending aorta Value Ref IVS, ED (H) 1.3 cm 0.6 - 0.9 AAo AP diam, S 2.9 cm ---- Right ventricle Value Ref Aortic arch Value Ref MCKENZIE, LAX 2.5 cm Arch diam 2.8 cm ---- Left atrium Value Ref Decending aorta Value Ref AP dim, ES 2.70 cm 2.70 - Stef peak mauro 0.45 m/sec ---- 3.80 ML dim, A4C 3.3 cm Inferior vena cava Value Ref SI dim, A4C 4.5 cm Diam 1.7 cm ---- Vol/bsa, ES, A/L 24 ml/m^2 16 - 34 Right atrium Value Ref SI dim, ES 3.7 cm 3.4 - 5.3 ML dim, ES, A4C 3.0 cm 2.6 - 4.4 Estimated RAP 8 mm Hg Legend: (L) and (H) pita values outside specified reference range. Prepared and electronically signed by Terrance Alcazar MD 03/24/2019 15:53
[2019-03-24] MEDS: cefTRIAXone(*) 1 GM in NS 0.9% 50 ML* 50 ML IVPB SCH (16:42)
[2019-03-24] MEDS ORDERED: Atorvastatin* 80 MG TAB PO ONE (21:00)
[2019-03-24] MEDS: Aspirin EC TAB* 81 MG TAB.EC PO SCH (21:17)
--- NOTE | 2019-03-24 21:41 | EEG ---
ELECTROENCEPHALOGRAPHY: DATE OF STUDY: 03/24/19 LOCATION: She is an inpatient in room 450. REFERRING PROVIDER: Dr. Prado. CHIEF COMPLAINT: Diminished responsiveness in a patient with prior stroke and epilepsy. MEDICATIONS: Include: 1. Fosphenytoin. 2. Zofran. 3. Keppra. 4. Rocephin. 5. Labetalol. REPORT: This 19-channel EEG is remarkable for background rhythms consisting of diffuse mixed theta and delta activity. The patient is awake, but yawning. There is slightly lower frequency rhythm seen from the left mid temporal region , but slowing is diffuse. Occasionally, there is a left mid temporal sharp wave without clearcut phase reversal. Activation procedures are not attempted. There are no clinical events. There are no epileptiform discharges. CLINICAL IMPRESSION: Abnormal EEG due to diffuse slowing of background rhythms , a little bit more from the left hemisphere than the right. Compared to the study from yesterday, there are no clear epileptiform abnormalities. [id number]/[facility] #: [id number] MTDKrysten
--- NOTE | 2019-03-24 23:09 | EEG ---
ELECTROENCEPHALOGRAPHY: DATE OF STUDY: 03/24/19 LOCATION: She is an inpatient in room 450. REFERRING PROVIDER: Dr. Prado. CLINICAL HISTORY: History of seizures, history of right hemisphere stroke, and the patient had diminished responsiveness the day of this recording. MEDICATIONS: Include: 1. Labetalol. 2. Levetiracetam. 3. Fosphenytoin. 4. Rocephin. REPORT: This 19-channel electroencephalogram is remarkable for background rhythms consisting of a diffusely slow background. Rhythms are mainly in the theta to less extent delta range. There are slower rhythms seen from the left temporal region than the right. There are rare poorly formed sharp waves seen from the left mid temporal region. There are no clinical events. There are no epileptiform discharges during this recording. CLINICAL IMPRESSION: Abnormal electroencephalogram due to generalized slowing of background rhythms, little bit more from the left hemisphere than the right. There are rare sharp waves seen from the left mid temporal region. Compared to the prior tracings of the last few days, there is continued improvement in the left temporal lobe focal abnormalities. [id number]/[facility] #: [id number] JOSE R
[2019-03-25] MEDS: NS 0.9% 1000 ML** 1,000 ML IV SCH ×2 (02:18→20:56)
[2019-03-25] MEDS: Pantoprazole IV* 40 MG IV SCH (04:25)
[2019-03-25] MEDS: levETIRAcetam 1000MG IVPREMIX* 1,000 MG/100 ML BAG IVPB SCH ×2 (05:14→17:11)
[2019-03-25 05:17] LABS: ABS Basophils 0.1 10^3/ul (0-0.2); ABS Eosinophils 0.2 10^3/ul (0-0.6); ABS Lymphocytes 1.9 10^3/ul (1.0-4.8); ABS Monocytes 1.1 10^3/ul (0-0.8); ABS Neutrophils 6.3 10^3/ul (1.5-7.7); Eosinophil % 1.6 %; Hematocrit 38 % (35-47); Hemoglobin 12.7 g/dL (12.0-16.0); Lymphocyte % 20.3 %; Mean Corpuscular HGB Conc 34 g/dL (31-36); Mean Corpuscular Hemoglobin 30 pg (27-31); Mean Corpuscular Volume 88 fL (80-97); Mean Platelet Volume 7.9 fL (7.4-10.4); Platelet Count 172 10^3/uL (150-450); Red Blood Count 4.26 10^6 /uL (3.70-4.87); Red Cell Distribution Width 14 % (10-15); White Blood Count 9.5 10^3/uL (3.5-10.8)
[2019-03-25 05:37] LABS: BUN/Creatinine Ratio 18.8 (8-20); Calcium 8.6 mg/dL (8.6-10.3); EGFR African American 86.6 (>60); EGFR Non-African American 71.5 (>60); Potassium 3.3 mmol/L (3.5-5.0)
[2019-03-25] MEDS: Heparin VIAL(*) 5000 UNITS/ML VIAL (FIVE THOUSAND) SUBCUT SCH ×3 (06:06→20:53)
--- NOTE | 2019-03-25 08:10 | PN ---
Subjective Date of Service: 03/25/19 Interval History: HOSPITALIST PROGRESS NOTE Patient seen and examined at bedside. Care reviewed and d/w Alice Robins RN. She is alert and awake today, has significant expressive aphasia, but was able to tell me her name. Unable to answer other questions. Doesn't follow commands. Family History: Unchanged from Admission Social History: Unchanged from Admission Past Medical History: Unchanged from Admission Objective Active Medications: Aspirin (Aspirin Ec Tab*) 81 mg PO DAILY [facility] Last Admin: 03/24/19 21:17 Dose: 81 mg Atorvastatin Calcium (Lipitor*) 80 mg PO 2100 [facility] Heparin Sodium (Porcine) (Heparin Vial(*)) 5,000 units SUBCUT Q8HR [facility] Last Admin: 03/25/19 06:06 Dose: 5,000 units Ceftriaxone Sodium 1 gm/ (Sodium Chloride) 50 mls @ 100 mls/hr IVPB Q24H [facility] Last Admin: 03/24/19 16:42 Dose: 100 mls/hr Levetiracetam (Keppra Iv Premix*) 1,000 mg in 100 mls @ 400 mls/hr IVPB Q12H [facility] Last Admin: 03/25/19 05:14 Dose: 400 mls/hr Sodium Chloride (Ns 0.9% 1000 Ml) 1,000 mls @ 75 mls/hr IV PER RATE [facility] Last Admin: 03/25/19 02:18 Dose: 75 mls/hr Potassium Chloride (Potassium Chloride 10 Meq/50 Ml Ivpremix*) 10 meq in 50 mls @ 50 mls/hr IV Q1H [facility] Stop: 03/25/19 10:59 Labetalol HCl (Trandate Iv*) 10 mg IV PUSH Q6H PRN PRN Reason: Systolic Bp Greater Than:165 Last Admin: 03/22/19 09:43 Dose: 10 mg Ondansetron HCl (Zofran Inj*) 4 mg IV Q4H PRN PRN Reason: NAUSEA/VOMITING Pantoprazole Sodium (Protonix Iv*) 40 mg IV Q24H [facility] Last Admin: 03/25/19 04:25 Dose: 40 mg Vital Signs - 8 hr 03/25/19 03/25/19 03/25/19 01:00 02:00 03:00 Temperature Pulse Rate 79 80 79 Respiratory 12 12 19 Rate Blood Pressure 157/84 109/93 140/92 (mmHg) O2 Sat by Pulse 94 93 95 Oximetry 03/25/19 03/25/19 03/25/19 03:57 04:00 04:01 Temperature 97.3 F Pulse Rate 70 68 Respiratory 21 19 Rate Blood Pressure 158/83 (mmHg) O2 Sat by Pulse 94 94 Oximetry 03/25/19 03/25/19 03/25/19 05:00 05:01 06:00 Temperature Pulse Rate 63 69 67 Respiratory 18 18 20 Rate Blood Pressure 155/74 128/74 (mmHg) O2 Sat by Pulse 96 97 95 Oximetry Oxygen Devices in Use Now: None Appearance: Elderly lady lying in bed in NAD Eyes: No Scleral Icterus Ears/Nose/Mouth/Throat: Mucous Membranes Moist Neck: Trachea Midline Respiratory: Symmetrical Chest Expansion and Respiratory Effort, Clear to Auscultation Cardiovascular: RRR - Normal S1 and S2 Abdominal: NL Sounds; No Tenderness; No Distention Neurological: - - Alert and awake, moves RUE and bilateral LE, but does not follow commands Result Diagrams: 03/25/19 04:48 03/25/19 04:48 Assess/Plan/Problems-Billing Assessment: Mrs Saavedra is a 68yo M with 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 - Patient Problems (1) CVA (cerebral vascular accident) Comment: - History of right MCA CVA and MRI reveals an acute/subacute stroke of the left temporal lobe/insula. - Transfer to Telemetry. - Continue Neuro checks. - Continue Aspirin, Atorvastatin, and add Plavix. - Neuro f/u requested. - PT/OT/Speech therapy evaluation. - Palliative care consult to help define goals of care. Unable to reach family member so far (numbers obtained are not correct or not working). (2) Ventricular fibrillation Comment: - Cardiology input appreciated - Dr Alcazar believes patient had artifact , not Afib. - Echo showed estimated ejection fraction is 50-55%. Although no diagnostic regional wall motion abnormality is identified, this possibility cannot be completely excluded on the basis of this study. Smal left ventricle apical outpouching of unclear significance. No evidence of thrombus in apex. - No significant arrhythmia on Telemetry so far. (3) Seizure Comment: - D/w Neurology - lethargy likely secondary to post ictal state, Keppra and Phenytoin. EEG did not show persistent seizures. - Phenytoin level elevated down to 16 today - Neurology recommended to continue Keppra 1000mg IV q12h and add Fosphenytoin 100mg IV q12h. - Seizure precautions. (4) Hypokalemia Comment: - Replete. (5) Fever Comment: - Had one episode of temperature 100.8 - on Ceftriaxone. - Check UA. (6) DVT prophylaxis Comment: - SQ heparin. (7) Full code status Status and Disposition: Inpatient. Transfer to Telemetry.
[2019-03-25] MEDS: KCL 10 MEQ/50 ML IVPREMIX* 10 MEQ/50 ML BAG IV SCH ×3 (08:44→11:07)
[2019-03-25] MEDS: Aspirin EC TAB* 81 MG TAB.EC PO SCH (08:45)
[2019-03-25] MEDS: Aspirin 81 mg CHEW TAB* 81 MG TAB.CHEW PO SCH (10:18)
[2019-03-25] MEDS: Labetalol IV* 5 MG/ML 20 ML VIAL IV PUSH PRN (12:26)
[2019-03-25] MEDS ORDERED: Fosphenytoin(*) 100 MG PE/2 ML VIAL IVPB SCH (13:00)
[2019-03-25] MEDS: Clopidogrel TAB* 75 MG PO SCH (14:58)
[2019-03-25] MEDS: [UNRECOGNIZED DRUG - OTHER] IVPB SCH ×2 (15:02)
[2019-03-25] MEDS: FOSPHENYTOIN IVPB SCH ×2 (15:02)
[2019-03-25] MEDS: cefTRIAXone(*) 1 GM in NS 0.9% 50 ML* 50 ML IVPB SCH (16:09)
--- NOTE | 2019-03-25 16:36 | PN ---
Progress Note - Progress Note Date of Service: 03/25/19 Note: Social work dept is trying to track down trever Cuevas. Police have been sent to check on residence. I visited with pt initially but didn't get as far because of her expressive aphasia. Revisited pt but she is sleeping. Will talk with her in am again.
[2019-03-25] MEDS: Atorvastatin* 80 MG TAB PO SCH (20:53)
[2019-03-26] MEDS: [UNRECOGNIZED DRUG - OTHER] IVPB SCH ×4 (02:17→15:36)
[2019-03-26] MEDS: FOSPHENYTOIN IVPB SCH ×4 (02:17→15:36)
[2019-03-26] MEDS: Pantoprazole IV* 40 MG IV SCH (03:14)
[2019-03-26] MEDS: Heparin VIAL(*) 5000 UNITS/ML VIAL (FIVE THOUSAND) SUBCUT SCH ×3 (05:33→20:36)
[2019-03-26] MEDS: levETIRAcetam 1000MG IVPREMIX* 1,000 MG/100 ML BAG IVPB SCH (05:33)
[2019-03-26] MEDS: Aspirin 81 mg CHEW TAB* 81 MG TAB.CHEW PO SCH (10:54)
[2019-03-26] MEDS: Clopidogrel TAB* 75 MG PO SCH (10:54)
--- NOTE | 2019-03-26 11:40 | CONSULT ---
Palliative / Hospice Consult Ordering Provider: Graciela Bales - PCP-Cheo Referal Reason: Goals of care/no bowel meds/no narcotics - Subjective Code Status: Full Code Advance Directives Location: In Chart - History or Present Illness History or Present Illness: 68yo female resident of [facility], [place] who presented to ER with confusion and slurred speech. Pt now has expressive aphasia. PMH is significant for CVA with residual L sided weakness in 2017, seizure disorder secondary to stroke, hyperlipidemia, GERD and HTN. PSHx pt resides at [facility] [place], her HCP is a grandson which we are unable to locate see social work note, ex tob user, no etoh and no drugs, pt had moved here from [place] and was living with her kiki Costello. Studies head CTA 9mm nodule RLL, possible occlusion of one of the branches of left M2 MCA, brain ct neg, ekg nsr, cxr neg, barin ct #2 stalbe old MCA, eeg diffuse cerebral dysfunction, kub neg, MRI chronic small vessel ischemic disease, encephalmalacia old R, L temporal lobe/insula acute/subacute infarct, Echo 50-55% no change from previous study, last EEG showed continued improvement, H/H 12.7/38, BUN/Cr 15/.8, egfr 71.5, alb 3.6, Inr .97, repeat ekg nsr, lad, ? ischemic anterolateral leads and UC neg. Pt was admitted to ICU with stroke and possibly postictal. Pt was transferred to floor once stable. All history is from medical records pt unable to contribute due to expressive aphasia. Lab Values: Abnormal Lab Results 03/23/19 17:08 Levetiracetam 8.7 L Laboratory Last Values WBC 9.5 10^3/uL (3.5-10.8) 03/25/19 04:48 RBC 4.26 10^6 /uL (3.70-4.87) 03/25/19 04:48 Hgb 12.7 g/dL (12.0-16.0) 03/25/19 04:48 Hct 38 % (35-47) 03/25/19 04:48 MCV 88 fL (80-97) 03/25/19 04:48 MCH 30 pg (27-31) 03/25/19 04:48 MCHC 34 g/dL (31-36) 03/25/19 04:48 RDW 14 % (10-15) 03/25/19 04:48 Plt Count 172 10^3/uL (150-450) 03/25/19 04:48 MPV 7.9 fL (7.4-10.4) 03/25/19 04:48 Neut % (Auto) 66.3 % 03/25/19 04:48 Lymph % (Auto) 20.3 % 03/25/19 04:48 [place] % (Auto) 11.1 % 03/25/19 04:48 Eos % (Auto) 1.6 % 03/25/19 04:48 Baso % (Auto) 0.7 % 03/25/19 04:48 Absolute Neuts (auto) 6.3 10^3/ul (1.5-7.7) 03/25/19 04:48 Absolute Lymphs (auto) 1.9 10^3/ul (1.0-4.8) 03/25/19 04:48 Absolute Monos (auto) 1.1 10^3/ul (0-0.8) H 03/25/19 04:48 Absolute Eos (auto) 0.2 10^3/ul (0-0.6) 03/25/19 04:48 Absolute Basos (auto) 0.1 10^3/ul (0-0.2) 03/25/19 04:48 Absolute Nucleated RBC 0.0 10^3/ul 03/25/19 04:48 Nucleated RBC % 0.0 03/25/19 04:48 INR (Anticoag Therapy) 0.97 (0.82-1.09) 03/21/19 20:00 APTT 32.1 seconds (26.0-38.0) 03/21/19 20:00 Sodium 139 mmol/L (135-145) 03/25/19 04:48 Potassium 3.3 mmol/L (3.5-5.0) L 03/25/19 04:48 Chloride 107 mmol/L (101-111) 03/25/19 04:48 Carbon Dioxide 22 mmol/L (22-32) 03/25/19 04:48 Anion Gap 10 mmol/L (2-11) 03/25/19 04:48 BUN 15 mg/dL (6-24) 03/25/19 04:48 Creatinine 0.80 mg/dL (0.51-0.95) 03/25/19 04:48 Est GFR ( Amer) 86.6 (>60) 03/25/19 04:48 Est GFR (Non-Af Amer) 71.5 (>60) 03/25/19 04:48 BUN/Creatinine Ratio 18.8 (8-20) 03/25/19 04:48 Glucose 89 mg/dL (70-100) 03/25/19 04:48 POC Glucose (mg/dL) 173 mg/dL (70-100) H 03/21/19 20:15 Hemoglobin A1c 6.0 % (4.0-5.6) H 03/22/19 08:44 Lactic Acid 1.7 mmol/L (0.5-2.0) 03/21/19 20:00 Calcium 8.6 mg/dL (8.6-10.3) 03/25/19 04:48 Total Bilirubin 0.30 mg/dL (0.2-1.0) 03/21/19 20:00 AST 15 U/L (13-39) 03/21/19 20:00 ALT 12 U/L (7-52) 03/21/19 20:00 Alkaline Phosphatase 125 U/L (34-104) H 03/21/19 20:00 Troponin I 0.01 ng/mL (<0.04) 03/21/19 20:00 Total Protein 6.8 g/dL (6.4-8.9) 03/21/19 20:00 Albumin 3.6 g/dL (3.2-5.2) 03/21/19 20:00 Globulin 3.2 g/dL (2-4) 03/21/19 20:00 Albumin/Globulin Ratio 1.1 (1-3) 03/21/19 20:00 Triglycerides 123 mg/dL 03/21/19 20:00 Cholesterol 140 mg/dL 03/21/19 20:00 LDL Cholesterol 71 mg/dL 03/21/19 20:00 HDL Cholesterol 44.0 mg/dL 03/21/19 20:00 Phenytoin 16.8 mcg/mL (10-20) 03/25/19 04:48 Levetiracetam 8.7 mcg/mL L 03/23/19 17:08 Phenobarbital Cancelled 03/24/19 05:48 - Objective Active Medications: Aspirin (Aspirin 81 Mg Chew Tab*) 81 mg PO DAILY [facility] Last Admin: 03/26/19 10:54 Dose: 81 mg Atorvastatin Calcium (Lipitor*) 80 mg PO 2100 [facility] Last Admin: 03/25/19 20:53 Dose: 80 mg Clopidogrel Bisulfate (Plavix Tab*) 75 mg PO DAILY [facility] Last Admin: 03/26/19 10:54 Dose: 75 mg Heparin Sodium (Porcine) (Heparin Vial(*)) 5,000 units SUBCUT Q8HR [facility] Last Admin: 03/26/19 05:33 Dose: 5,000 units Ceftriaxone Sodium 1 gm/ (Sodium Chloride) 50 mls @ 100 mls/hr IVPB Q24H [facility] Last Admin: 03/25/19 16:09 Dose: 100 mls/hr Levetiracetam (Keppra Iv Premix*) 1,000 mg in 100 mls @ 400 mls/hr IVPB Q12H [facility] Last Admin: 03/26/19 05:33 Dose: 400 mls/hr Sodium Chloride (Ns 0.9% 1000 Ml) 1,000 mls @ 75 mls/hr IV PER RATE [facility] Last Admin: 03/25/19 20:56 Dose: 75 mls/hr Fosphenytoin Sodium 100 mg/ (Sodium Chloride) 52 mls @ 208 mls/hr IVPB Q12H [facility] ; Protocol Last Admin: 03/26/19 02:17 Dose: 208 mls/hr Labetalol HCl (Trandate Iv*) 10 mg IV PUSH Q6H PRN PRN Reason: Systolic Bp Greater Than:165 Last Admin: 03/25/19 12:26 Dose: 10 mg Ondansetron HCl (Zofran Inj*) 4 mg IV Q4H PRN PRN Reason: NAUSEA/VOMITING Pantoprazole Sodium (Protonix Iv*) 40 mg IV Q24H [facility] Last Admin: 03/26/19 03:14 Dose: 40 mg Vital Signs: Vital Signs: Temp Pulse Resp BP Pulse Ox 97.3 F 69 20 145/101 96 03/26/19 07:35 03/26/19 07:35 03/26/19 07:35 03/26/19 07:35 03/26/19 07:35 Patient Weight: Weight 65.1 kg Intake and Output: Intake & Output 03/24/19 03/25/19 03/26/19 03/27/19 06:59 06:59 06:59 06:59 Intake Total 1460 1225 1523 220 Output Total 0 0 Balance 1460 1225 1523 220 Weight 65.1 kg Intake: IV Fluids 1360 1025 1523 Keppra 244 NS 1360 1025 1279 IVPB 100 NS 100 Oral 100 100 0 220 Output: Urine 0 0 Other: Estimated Void Medium Medium Date of Last Bowel 03/23 Movement # Bowel Movements 1 1 Estimated Stool Amount Large Medium # Voids 1 1 1 ADLs: Meal Record Start: 03/22/19 08: 05 Freq: ,,18 Status: Inactive Protocol: Created 03/22/19 08:05 System (Rec: 03/22/19 08:05 System ICU-C12) Document 03/23/19 08:27 [id number] (Rec: 03/23/19 08:27 [id number] ICU-C06) Document 03/23/19 11:14 [id number] (Rec: 03/23/19 11:14 [id number] ICU-C06) ADLs: Meal Record Start: 03/23/19 21: 11 Freq: Status: Active Protocol: Document 03/23/19 20:00 [id number] (Rec: 03/23/19 21:12 [id number] TELE-C09) Created 03/23/19 21:11 [id number] (Rec: 03/23/19 21:11 SQX0788 TELE-C09) Document 03/26/19 09:13 [id number] (Rec: 03/26/19 09:13 ZRR0766 TELE-C09) ADLs: Meal Record Start: 03/24/19 10: 44 Freq: ,,18 Status: Complete Protocol: Created 03/24/19 10:44 [id number] (Rec: 03/24/19 10:44 [id number] ICU-M18) Document 03/24/19 12:45 [id number] (Rec: 03/24/19 12:45 [id number] ICU-C06) Document 03/24/19 18:00 AUL2649 (Rec: 03/24/19 18:19 [id number] ICU-C06) Document 03/25/19 09:00 TTP9019 (Rec: 03/25/19 10:30 [id number] ICU-C06) Intake and Output Start: 03/21/19 20: 42 Freq: 06,14,2200 Status: Active Protocol: Created 03/21/19 20:43 [id number] (Rec: 03/21/19 20:43 BKG LEAH-BG12) Document 03/23/19 00:00 [id number] (Rec: 03/23/19 00:22 SFK7043 ISDEMO-M03 ) Intake and Output Start: 03/22/19 08: 05 Freq: Q1HR Status: Inactive Protocol: Created 03/22/19 08:05 System (Rec: 03/22/19 08:05 System ICU-C12) Document 03/22/19 14:00 AKL2531 (Rec: 03/22/19 15:04 [id number] ISDEMO-M03 ) Document 03/22/19 17:00 XYK2874 (Rec: 03/22/19 17:53 GLP0892 ICU-C12) Document 03/22/19 20:00 OWH6591 (Rec: 03/22/19 21:20 PWQ6764 ICU-C06) Document 03/23/19 06:00 MXB6366 (Rec: 03/23/19 06:02 DJG1171 ICU-C06) Document 03/23/19 07:19 TXW3689 (Rec: 03/23/19 07:21 OMV5455 ICU-C06) Document 03/23/19 07:31 GQC8413 (Rec: 03/23/19 07:31 DPV7543 ICU-C06) Document 03/23/19 08:28 QDZ0258 (Rec: 03/23/19 08:28 NRE1513 ICU-C06) Document 03/23/19 09:19 JRN9881 (Rec: 03/23/19 09:20 YEJ1795 ICU-C06) Document 03/23/19 10:05 MRS8208 (Rec: 03/23/19 10:06 KGT1428 ICU-C06) Document 03/23/19 11:16 PBY5344 (Rec: 03/23/19 11:17 QCA6944 ICU-C06) Document 03/23/19 12:28 ZOD6949 (Rec: 03/23/19 12:28 JVD9168 ICU-C06) Document 03/23/19 13:16 UCZ5460 (Rec: 03/23/19 13:17 XZR5097 ICU-C06) Document 03/23/19 14:29 WEL1801 (Rec: 03/23/19 14:30 HCN4206 ICU-C06) Intake and Output Start: 03/24/19 10: 44 Freq: Q1HR Status: Complete Protocol: Created 03/24/19 10:44 DOD9117 (Rec: 03/24/19 10:44 OCA9789 ICU-M18) Document 03/24/19 11:00 DDB6403 (Rec: 03/24/19 11:47 MSN5051 ICU-C06) Document 03/24/19 11:49 MCG9373 (Rec: 03/24/19 11:54 YGP5427 ICU-C06) Document 03/24/19 12:45 XFX2581 (Rec: 03/24/19 12:45 ARS8541 ICU-C06) Document 03/24/19 14:00 UAZ1663 (Rec: 03/24/19 15:23 DDU1354 ICU-C06) Document 03/24/19 15:00 EYU2377 (Rec: 03/24/19 15:25 AGT1539 ICU-C06) Document 03/24/19 15:49 CHV8841 (Rec: 03/24/19 15:53 OAZ3157 ICU-C06) Document 03/24/19 17:00 CIS1692 (Rec: 03/24/19 17:47 AHD5825 ICU-C06) Document 03/24/19 18:00 NHD2605 (Rec: 03/24/19 18:19 CVI5102 ICU-C06) Document 03/24/19 19:00 MBS4028 (Rec: 03/24/19 21:30 WBS0487 ICU-C06) Document 03/24/19 20:00 TVQ4931 (Rec: 03/24/19 22:04 EBS8483 ICU-C06) Document 03/24/19 21:00 UUG6001 (Rec: 03/24/19 22:09 KHJ7075 ICU-C06) Document 03/24/19 22:00 KLZ3997 (Rec: 03/24/19 22:27 WQV2032 ICU-C06) Document 03/24/19 23:00 LNO2562 (Rec: 03/25/19 01:40 FVG3693 ICU-C06) Document 03/25/19 00:00 [id number] (Rec: 03/25/19 01:59 JAO6022 ICU-C06) Document 03/25/19 01:00 HOM5489 (Rec: 03/25/19 02:01 PTU4817 ICU-C06) Document 03/25/19 02:00 DQP4280 (Rec: 03/25/19 02:50 ITH2435 ICU-C06) Document 03/25/19 03:00 JGN7494 (Rec: 03/25/19 03:58 XHJ3393 ICU-C06) Document 03/25/19 04:00 QAO2577 (Rec: 03/25/19 04:52 ELO6700 ICU-C06) Document 03/25/19 05:00 HAN1392 (Rec: 03/25/19 05:26 DQC4382 ICU-C06) Document 03/25/19 06:00 XJH5640 (Rec: 03/25/19 06:31 PTO1717 ICU-C06) Document 03/25/19 07:00 ALM8187 (Rec: 03/25/19 10:00 [id number] ICU-C06) Document 03/25/19 09:00 RHA5254 (Rec: 03/25/19 10:00 [id number] ICU-C06) Document 03/25/19 10:00 [id number] (Rec: 03/25/19 10:32 [id number] ICU-C06) Eyes: No Scleral Icterus Ears/Nose/Mouth/Throat: Mucous Membranes Moist Neck: Trachea Midline Cardiovascular: RRR - Normal S1 and S2 Respiratory: Symmetrical Chest Expansion and Respiratory Effort, Clear to Auscultation Abdominal: NL Sounds; No Tenderness; No Distention Neurological: - - Alert and awake, moves RUE and bilateral LE, but does not follow commands - Assessment Assessment: 68yo female admitted with AMS found to have new L sided CVA with expressive aphasia - Plan Consult Plan (MU): Palliative Plan: Attempted to speak to pt several times yesterday but she was asleep. Spoke with her this morning she is extremely difficult to converse with but she seemed concerned we couldn't locate her grandson and she seemed to want to have CPR. I let her read the MOLST, I wrote things out and I discussed them but she only seemed to respond to having CPR and not choosing DNR. I did let her know she had a second stroke. She is not hospice eligible currently. KPS 50%, PPS 50% - Time On Unit Date of Evaluation: 03/26/19 Hospice Consult Time in: 10:30 Hospice Consult Time Out: 12:00 Hospice Consult Time Total: 90 > 50% of Time Spend In Counseling or Coordinating Care: Yes
--- NOTE | 2019-03-26 15:01 | CONS ---
NEUROLOGY CONSULTATION FOLLOWUP: DATE OF FOLLOWUP: 03/26/19 LOCATION: She is an inpatient, room 447. HOSPITALIST: Dr. Diaz. CHIEF COMPLAINT: Seizures, stroke. INTERVAL HISTORY: Since last visit, Haroldo is doing better. She is sitting up in a chair and is alert. She is quite aphasic. She is able to use the right arm with some utility. She answers very few questions and not reliably. MEDICATIONS: Reviewed and she is on: 1. Aspirin 81 mg p.o. q. day. 2. Clopidogrel 75 mg p.o. q. day. 3. Atorvastatin 80 mg p.o. q. day. 4. Ceftriaxone 1 g IV q.24 hours. 5. Fosphenytoin 100 mg IV q.12 hours. 6. Keppra 1000 mg IV q.12 hours. 7. Ondansetron 4 mg IV q.4 hours p.r.n. 8. Protonix 40 mg IV q.24 hours. PHYSICAL EXAMINATION: On exam, she is alert. Temperature 97.3, blood pressure 145/101, heart rates in the 60s. I do not hear any murmurs. Her neck is supple. She has a bruise on her right cheek which is gradually aging over time. Neurological Exam: She is aphasic and answers some questions. All of her answers are one word and only about 50% of the time consistent with the question asked. She moves her right arm semi-purposefully. She has a spastic left hemiparesis. DIAGNOSTIC STUDIES/LAB DATA: Laboratory data includes CBC from yesterday which is unremarkable, chemistries from yesterday are notable for potassium of 3.3. Levetiracetam level on 03/23/19 was 8.7 and phenytoin level on 03/25/19 was 16.8. IMPRESSION: Impression is that of a new left hemisphere stroke as well as secondarily generalized seizures. The seizures have been quiescent for a couple of days now. I will switch her to oral Dilantin 100 mg twice per day and oral levetiracetam 1000 mg twice per day. My understanding is she will probably be transferred back to her nursing sometime soon. She is on a statin and there has been no evidence of a cardioembolic source to her stroke, and so I think dual- antiplatelet therapy for 30 days and then switch to a single antiplatelet agent such as Plavix after 30 days would be the appropriate approach. [id number]/[facility] #: [id number] JOSE R
[2019-03-26] MEDS: cefTRIAXone(*) 1 GM in NS 0.9% 50 ML* 50 ML IVPB SCH (15:43)
--- NOTE | 2019-03-26 18:34 | PN ---
Subjective Date of Service: 03/26/19 Interval History: Patient cannot give history. Nursing reports she is saying a few words in a row now. Police and have been unable to locate any family. Family History: Unchanged from Admission Social History: Unchanged from Admission Past Medical History: Unchanged from Admission Objective Active Medications: Aspirin (Aspirin 81 Mg Chew Tab*) 81 mg PO DAILY [facility] Last Admin: 03/26/19 10:54 Dose: 81 mg Atorvastatin Calcium (Lipitor*) 80 mg PO 2100 [facility] Last Admin: 03/25/19 20:53 Dose: 80 mg Clopidogrel Bisulfate (Plavix Tab*) 75 mg PO DAILY [facility] Last Admin: 03/26/19 10:54 Dose: 75 mg Heparin Sodium (Porcine) (Heparin Vial(*)) 5,000 units SUBCUT Q8HR [facility] Last Admin: 03/26/19 15:43 Dose: 5,000 units Ceftriaxone Sodium 1 gm/ (Sodium Chloride) 50 mls @ 100 mls/hr IVPB Q24H [facility] Last Admin: 03/26/19 15:43 Dose: 100 mls/hr Labetalol HCl (Trandate Iv*) 10 mg IV PUSH Q6H PRN PRN Reason: Systolic Bp Greater Than:165 Last Admin: 03/25/19 12:26 Dose: 10 mg Levetiracetam (Keppra Tab*) 1,000 mg PO BID [facility] Ondansetron HCl (Zofran Inj*) 4 mg IV Q4H PRN PRN Reason: NAUSEA/VOMITING Pantoprazole Sodium (Protonix Tab*) 40 mg PO DAILY [facility] Phenytoin Sodium (Dilantin Cap(*)) 100 mg PO BID [facility] Oxygen Devices in Use Now: None Appearance: smiling and awake Ears/Nose/Mouth/Throat: NL Teeth, Lips, Gums Neck: NL Appearance and Movements; NL JVP Respiratory: Symmetrical Chest Expansion and Respiratory Effort, Clear to Auscultation Cardiovascular: NL Sounds; No Murmurs; No JVD, RRR Abdominal: NL Sounds; No Tenderness; No Distention Extremities: No Edema Skin: - - bruising RT cheek Neurological: - - make eye contact, but distracted by any movement, said her name, cannot say day, place, expressive aphasia Lines/Tubes/Other Access: Clean, Dry and Intact Peripheral IV Result Diagrams: 03/25/19 04:48 03/25/19 04:48 Microbiology and Other Data: Microbiology 03/22/19 11:43 Nasal Nasal Screen MRSA (PCR) - Final Mrsa Not Detected 03/22/19 15:40 Blood Line Aerobic Blood Culture - Preliminary 03/22/19 15:40 Blood Line Anaerobic Blood Culture - Preliminary No Growth Day 4 No Growth Day 4 Assess/Plan/Problems-Billing Assessment: Mrs Saavedra is a 68yo M with PMH of 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 - Seizure precautions. (2) CVA (cerebral vascular accident) Current Visit: Yes Status: Acute Priority: Medium Code(s): I63.9 - CEREBRAL INFARCTION, UNSPECIFIED SNOMED Code(s): 468322359 Comment: - History of right MCA CVA and MRI reveals an acute/subacute stroke of the left temporal lobe/insula. - Continue Aspirin, Atorvastatin, and Plavix. (3) DVT prophylaxis Current Visit: Yes Status: Acute Priority: Low Code(s): ULU2906 - SNOMED Code(s): 928528160 Comment: - SQ heparin. Status and Disposition: Inpatient; Can be discharged to SNF soon
[2019-03-26] MEDS: Atorvastatin* 80 MG TAB PO SCH (20:35)
[2019-03-26] MEDS: levETIRAcetam TAB* 500 MG PO SCH (20:35)
[2019-03-26] MEDS: Phenytoin CAP(*) 100 MG CAP.ER PO SCH (20:35)
[2019-03-27] MEDS: Heparin VIAL(*) 5000 UNITS/ML VIAL (FIVE THOUSAND) SUBCUT SCH ×2 (05:29→13:43)
[2019-03-27] MEDS ORDERED: Pantoprazole TAB * 40 MG TAB PO SCH (09:00)
[2019-03-27] MEDS: Clopidogrel TAB* 75 MG PO SCH (09:39)
[2019-03-27] MEDS: Phenytoin CAP(*) 100 MG CAP.ER PO SCH (09:39)
[2019-03-27] MEDS: Aspirin 81 mg CHEW TAB* 81 MG TAB.CHEW PO SCH (09:39)
[2019-03-27] MEDS: levETIRAcetam TAB* 500 MG PO SCH (09:39)
--- NOTE | 2019-03-27 12:35 | TRS ---
CC: Yessica Grider NP, [facility] TRANSFER SUMMARY: DATE OF ADMISSION: 03/22/19 DATE OF DISCHARGE: 03/27/19 PRIMARY DIAGNOSIS: Acute stroke, right middle cerebral artery distribution. SECONDARY DIAGNOSES: 1. History of right middle cerebral artery stroke. 2. Seizure disorder, exacerbated by stroke. 3. Hyperlipidemia. 4. Gastroesophageal reflux disease. 5. Suspected urinary tract infection. 6. Suspected ventricular tachycardia. MEDICATIONS ON DISCHARGE: 1. Aspirin 81 mg p.o. daily. 2. Atorvastatin 80 mg p.o. q.p.m. 3. Clopidogrel 75 mg p.o. daily. 4. Levetiracetam 1000 mg p.o. b.i.d. 5. Pantoprazole 40 mg p.o. daily. 6. Phenytoin 100 mg p.o. b.i.d. HOSPITAL COURSE: A 68-year-old woman with a history of stroke with left hemiparesis as well as seizure disorder, was admitted with episodes of aphasia. Initial suspicion was of a new stroke and she received telemedicine consult with [facility] and ended up with tPA. The tPA was done a course after additional head CT was negative for a bleed and showed encephalomalacia of the right parietal lobe. The patient's mental status deteriorated in the intensive care unit in the next 24 hours. She was nonverbal and almost nonresponsive. There was a suspicion of seizure complicating the stroke and consultation with Dr. Prado was pursued. The patient had 4 EEGs on 03/23/19 and 03/24/19. The first EEG was abnormal with generalized slowing background rhythms and more abundant slowing left hemisphere. No epileptiform discharges were seen. 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 The third EEG taken on 03/24/19 was abnormal without any clear epileptiform abnormalities and the fourth EEG also on 03/24/19 was abnormal with slow background rhythms and rare sharp waves from the mid temporal region again. There was improvement from previous on this fourth EEG. The patient was treated with continued Keppra as well as IV fosphenytoin. MRI of the brain was delayed because we could not contact any next of kin for consent. MRI did occur on 03/24/19 which showed restricted diffusion in the left temporal lobe insula consistent with a subacute or acute infarct. There was old infarct within the right temporal lobe as insula as well. The patient's acute stroke was treated with blood pressure control, addition of Plavix to her regimen, continued aspirin and Lipitor. The patient should see Dr. Prado in 2 weeks or so in his office for followup of titration of her seizure medicines and followup of stroke. The plan is to taper down phenytoin. The patient had a swallow study and was able to take thin liquids and soft solids, ground solids of pureed texture. Other laboratory abnormalities during the hospital stay: The patient had white count of 13.0 on admission which resolved, normalized. Her creatinine was 1.12 on admission which also normalized with hydration. She had LDL cholesterol of 71. Levetiracetam level was 8.7 which was low and the phenytoin level after infusion of fosphenytoin was high at 22.7 but fell down to 16.8 when she was switched to oral. The patient's next of kin was never contacted and the police went to the last known address of her grandson and he apparently moved 2 months ago and was not able to be contacted. The patient thankfully has come from [facility], so we do not, I believe, need consent to send her back to the same place where she came from. The patient remains verbal only be able to say her name and a few words, but very deep expressive aphasia. The patient had a fever, temperature 37.7 on 03/24/19. UA was ordered but not collected. She was started on ceftriaxone for possible UTI and completed 3 days of this. She was not sent home on antibiotics. DISCHARGE DISPOSITION: To [facility]. STATUS: Inpatient. CONDITION: Fair. DIET: Ground pureed texture, thin liquids, low fat. ACTIVITY: Should be out of bed to chair with assistance. FOLLOWUP: Follow up with Dr. Prado in 2 weeks. [id number]/[facility] #: [id number] [facility]
[2019-03-27 14:01] LABS: Urine Appearance Cloudy; Urine Bacteria Absent (Absent); Urine Bilirubin Negative (Negative); Urine Blood 3+ (Negative); Urine Color Yellow; Urine Glucose Negative (Negative); Urine Ketones Negative (Negative); Urine Nitrite Negative (Negative); Urine Protein 2+(100 mg/dL) (Negative); Urine Red Blood Cell 3+(>10/hpf) (Absent); Urine Squamous Epithelial Cell Present (Absent); Urine Urobilinogen Negative (Negative); Urine White Blood Cell 1+(6-10/hpf) (Absent)
--- NOTE | 2019-03-27 14:03 | PN ---
Subjective Date of Service: 03/27/19 Interval History: Patient cannot give history. She can say her name. No seizure activity reported. She was set for transfer back to [facility] [place] today. Later in PM, had choking on lunch. After breakfast had some vomiting. Family History: Unchanged from Admission Social History: Unchanged from Admission Past Medical History: Unchanged from Admission Objective Active Medications: Aspirin (Aspirin 81 Mg Chew Tab*) 81 mg PO DAILY [facility] Last Admin: 03/27/19 09:39 Dose: 81 mg Atorvastatin Calcium (Lipitor*) 80 mg PO 2100 [facility] Last Admin: 03/26/19 20:35 Dose: 80 mg Clopidogrel Bisulfate (Plavix Tab*) 75 mg PO DAILY [facility] Last Admin: 03/27/19 09:39 Dose: 75 mg Heparin Sodium (Porcine) (Heparin Vial(*)) 5,000 units SUBCUT Q8HR [facility] Last Admin: 03/27/19 13:43 Dose: 5,000 units Ceftriaxone Sodium 1 gm/ (Sodium Chloride) 50 mls @ 100 mls/hr IVPB Q24H [facility] Last Admin: 03/26/19 15:43 Dose: 100 mls/hr Labetalol HCl (Trandate Iv*) 10 mg IV PUSH Q6H PRN PRN Reason: Systolic Bp Greater Than:165 Last Admin: 03/25/19 12:26 Dose: 10 mg Levetiracetam (Keppra Tab*) 1,000 mg PO BID [facility] Last Admin: 03/27/19 09:39 Dose: 1,000 mg Ondansetron HCl (Zofran Inj*) 4 mg IV Q4H PRN PRN Reason: NAUSEA/VOMITING Pantoprazole Sodium (Protonix Tab*) 40 mg PO DAILY [facility] Last Admin: 03/27/19 09:39 Dose: 40 mg Phenytoin Sodium (Dilantin Cap(*)) 100 mg PO BID [facility] Last Admin: 03/27/19 09:39 Dose: 100 mg Vital Signs - 8 hr 03/27/19 03/27/19 08:00 11:54 Temperature 36.1 C 36.6 C Pulse Rate 103 99 Respiratory 20 24 Rate Blood Pressure 120/85 141/85 (mmHg) O2 Sat by Pulse 97 97 Oximetry Oxygen Devices in Use Now: None Appearance: sitting up, alert Respiratory: Symmetrical Chest Expansion and Respiratory Effort Cardiovascular: NL Sounds; No Murmurs; No JVD, RRR Abdominal: NL Sounds; No Tenderness; No Distention Neurological: - - makes eye contact, still distracted by TV, can say her name, otherwise aphasic Lines/Tubes/Other Access: Clean, Dry and Intact Peripheral IV Result Diagrams: 03/25/19 04:48 03/25/19 04:48 Assess/Plan/Problems-Billing Assessment: Mrs Saavedra is a 68yo M with PMH of 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 - Seizure precautions. (2) CVA (cerebral vascular accident) Current Visit: Yes Status: Acute Priority: Medium Code(s): I63.9 - CEREBRAL INFARCTION, UNSPECIFIED SNOMED Code(s): 773504711 Comment: - History of right MCA CVA and MRI reveals an acute/subacute stroke of the left temporal lobe/insula. - Continue Aspirin, Atorvastatin, and Plavix. (3) DVT prophylaxis Current Visit: Yes Status: Acute Priority: Low Code(s): ZEN1569 - SNOMED Code(s): 114453295 Comment: - SQ heparin. (4) Dysphagia as late effect of cerebrovascular disease Current Visit: Yes Status: Acute Priority: Medium Code(s): I69.991 - DYSPHAGIA FOLLOWING UNSPECIFIED CEREBROVASCULAR DISEASE SNOMED Code(s): 35283115 Comment: Asked speech therapy to reassess. Status and Disposition: Inpatient; Can be discharged to SNF soon
[2019-03-27 16:29] VITALS: BP 125/85
== END 2019-03-27 17:49 | DRG 61 ==
LOC: ED 19:39 → ICU 03-22 02:09 → MEDTELE 03-23 16:17 → ICU 03-24 09:33 → MEDTELE 03-25 10:39
PROVIDERS: ADMIT Internal Medicine; ATTEND Internal Medicine
PROC: 3E03317 Introduction of Other Thrombolytic into Peripheral Vein, Percutaneous Approach (ICD-10-PCS; principal; 2019-03-22)
PROC: 4A00X4Z Measurement of Central Nervous Electrical Activity, External Approach (ICD-10-PCS; 2019-03-24)
DX: I63.89 Other cerebral infarction (principal); I49.01 Ventricular fibrillation; I69.354 Hemiplegia and hemiparesis following cerebral infarction affecting left non-dominant side; R47.01 Aphasia; E78.5 Hyperlipidemia, unspecified; R47.81 Slurred speech; R41.0 Disorientation, unspecified; K21.9 Gastro-esophageal reflux disease without esophagitis; G40.909 Epilepsy, unspecified, not intractable, without status epilepticus; G89.29 Other chronic pain; M25.562 Pain in left knee; M54.9 Dorsalgia, unspecified; R40.2362 Coma scale, best motor response, obeys commands, at arrival to emergency department; E87.6 Hypokalemia; R50.9 Fever, unspecified; R40.2142 Coma scale, eyes open, spontaneous, at arrival to emergency department; R40.2252 Coma scale, best verbal response, oriented, at arrival to emergency department; R29.707 NIHSS score 7; R11.10 Vomiting, unspecified; R13.10 Dysphagia, unspecified; I69.322 Dysarthria following cerebral infarction; Z80.6 Family history of leukemia; Z82.49 Family history of ischemic heart disease and other diseases of the circulatory system; Z87.891 Personal history of nicotine dependence; I69.391 Dysphagia following cerebral infarction
CPT/HCPCS: 36415; 70450; 70496; 70498; 70551; 71045; 74018; 80048; 80053; 80061; 80177; 80185; 81003; 81015; 83036; 83605; 84484; 85025; 85610; 85730; 87040; 87086; 87641; 93005; 93306; 95816; 95819; 99285; A9270-GY; C8929; G8978-GP-CL; G8979-GP-CI; J0696; J1644; J1953; J2405; J2765; J2997; J3480; Q2009; Q9967

== ENCOUNTER 2021-08-01 13:46 | Inpatient (IN) ==
[2021-08-01] MEDS ORDERED: fentaNYL 100 mcg/2 ml 50 MCG/ML VIAL IV SLOW PU ONE (14:27)
[2021-08-01 15:14] LABS: ABS Eosinophils 0.1 10^3/ul (0-0.6); ABS Lymphocytes 1.1 10^3/ul (1.0-4.8); ABS Monocytes 0.9 10^3/ul (0-0.8); ABS Neutrophils 12.5 10^3/ul (1.5-7.7); Eosinophil % 0.6 %; Hematocrit 35 % (35-47); Hemoglobin 11.7 g/dL (12.0-16.0); Lymphocyte % 7.6 %; Mean Corpuscular HGB Conc 33 g/dL (31-36); Mean Corpuscular Hemoglobin 30 pg (27-31); Mean Corpuscular Volume 90 fL (80-97); Mean Platelet Volume 7.6 fL (7.4-10.4); Nucleated Red Blood Cells % 0.1; Platelet Count 192 10^3/uL (150-450); Red Blood Count 3.94 10^6 /uL (3.70-4.87); Red Cell Distribution Width 14 % (10-15); White Blood Count 14.7 10^3/uL (3.5-10.8)
[2021-08-01 15:21] LABS: Rapid COVID-19 Molecular Detected (Undetected)
[2021-08-01 15:54] LABS: Activated Partial Thrombo Time 21.2 seconds (26.0-38.0); INR 0.99 (0.86-1.15)
[2021-08-01 16:00] LABS: Albumin 3.4 g/dL (3.2-5.2); Globulin 3.4 g/dL (2-4); Potassium 4.4 mmol/L (3.5-5.0); Total Bilirubin 0.3 mg/dL (0.2-1.0); Total Protein 6.8 g/dL (6.4-8.9)
[2021-08-01] MEDS ORDERED: Magnesium Hydroxide LIQ 30 ML UDC PO PRN (17:19)
[2021-08-01] MEDS ORDERED: Remdesivir 100 mg Vial 200 MG in NS 0.9% 250 ml 210 ML IV ONE (17:47)
[2021-08-01] MEDS ORDERED: Lactated Ringers 1000 ml BAG 1,000 ML IV SCH (18:00)
[2021-08-01] MEDS ORDERED: Heparin 5000 UNITS/ML 1 mL VIAL SUBCUT SCH (22:00)
[2021-08-01] MEDS: Dextran 70/Hypromellose Tears Eye Drops 15 ml BTL (for Artificials Tears) BOTH EYES SCH (22:34)
[2021-08-01 23:43] LABS: Urine Appearance Turbid; Urine Bilirubin Negative (Negative); Urine Blood 2+ (Negative); Urine Color Amber; Urine Glucose Negative (Negative); Urine Ketones Negative (Negative); Urine Nitrite Negative (Negative); Urine Protein 2+(100 mg/dL) (Negative); Urine Specific Gravity 1.016 (1.002-1.030); Urine Urobilinogen Negative (Negative)
[2021-08-01 23:50] LABS: Urine Bacteria Absent (Absent); Urine Red Blood Cell 1+(3-5/hpf) (Absent); Urine Squamous Epithelial Cell Present (Absent); Urine White Blood Cell 2+(11-20/hpf) (Absent)
[2021-08-02] MEDS: Lactated Ringers 1000 ml BAG 1,000 ML IV SCH ×2 (06:04→15:15)
[2021-08-02 06:56] LABS: ABS Lymphocytes 1.3 10^3/ul (1.0-4.8); ABS Monocytes 0.9 10^3/ul (0-0.8); Eosinophil % 0.1 %; Hematocrit 29 % (35-47); Hemoglobin 9.6 g/dL (12.0-16.0); Lymphocyte % 12.7 %; Mean Corpuscular HGB Conc 34 g/dL (31-36); Mean Corpuscular Hemoglobin 31 pg (27-31); Mean Corpuscular Volume 91 fL (80-97); Mean Platelet Volume 7.9 fL (7.4-10.4); Platelet Count 157 10^3/uL (150-450); Red Blood Count 3.14 10^6 /uL (3.70-4.87); Red Cell Distribution Width 14 % (10-15); White Blood Count 10.2 10^3/uL (3.5-10.8)
[2021-08-02 07:14] LABS: Calcium 8.7 mg/dL (8.6-10.3); eGFR CKD-EPI 56.9 (>60)
[2021-08-02] MEDS: Dextran 70/Hypromellose Tears Eye Drops 15 ml BTL (for Artificials Tears) BOTH EYES SCH ×3 (10:24→21:35)
[2021-08-02] MEDS ORDERED: ceFAZolin 2 GM in NS PREMIX 2 GM/100 ML BAG IVPB ONE (14:19)
[2021-08-02] MEDS ORDERED: Bupivacaine 0.5% W/EPI SDV 10 ML VIAL INJ ONE (15:36)
[2021-08-02] MEDS ORDERED: Propofol 10 MG/ML 20 ML BTL ONE (15:56)
[2021-08-02] MEDS ORDERED: Dexamethasone IV 4 MG/ML VIAL 1 ml VIAL ONE (15:56)
[2021-08-02] MEDS ORDERED: Ondansetron 4 mg VIAL 2 MG/ML 2 ml VIAL ONE (15:56)
[2021-08-02] MEDS ORDERED: fentaNYL 100 mcg/2 ml 50 MCG/ML VIAL ONE ×2 (15:57→20:20)
[2021-08-02] MEDS ORDERED: Rocuronium 50 mg VIAL 10 mg/ml 5 ml VIAL (50 mg) ONE (15:57)
[2021-08-02] MEDS ORDERED: Lidocaine 2% PF 5 ML VIAL ONE (15:57)
[2021-08-02] MEDS ORDERED: Morphine 2 MG/ML SYRINGE IV PRN (16:55)
[2021-08-02] MEDS ORDERED: Phenylephrine IV 10 MG/ML 1 ml VIAL ONE (17:12)
[2021-08-02] MEDS ORDERED: EPHEDrine (Pressors) 50 MG/ML VIAL ONE ×2 (17:12→20:09)
[2021-08-02] MEDS ORDERED: Phenylephrine 40 mcg/mL 10mL (400mcg) SYRINGE ONE (17:13)
[2021-08-02] MEDS ORDERED: Ondansetron 4 mg VIAL 2 MG/ML 2 ml VIAL IV PRN (20:20)
[2021-08-02] MEDS ORDERED: fentaNYL 100 mcg/2 ml 50 MCG/ML VIAL IV PRN (20:20)
[2021-08-02] MEDS ORDERED: HYDROmorphone 1 MG/1 ML SYRINGE IV PRN (20:20)
[2021-08-02] MEDS ORDERED: HYDROmorphone 1 MG/1 ML SYRINGE ONE (20:20)
[2021-08-02] MEDS ORDERED: Metoclopramide 5 MG/ML VIAL (10 mg) IV PRN (20:20)
[2021-08-02] MEDS ORDERED: Naloxone 0.4 mg VIAL 0.4 mg/ml 1 ml VIAL IV PRN (20:20)
[2021-08-02] MEDS ORDERED: Remdesivir 100 mg Vial 100 MG in NS 0.9% 250 ml 230 ML IV SCH (21:00)
[2021-08-02] MEDS: Senna TAB 8.6 mg TAB PO SCH (23:44)
[2021-08-03 00:32] LABS: Vitamin D Total 25(OH) 11.8 ng/mL (20-50)
[2021-08-03] MEDS: ceFAZolin 1 GM Q8H (ADVAN) IVPB SCH ×3 (01:51→17:53)
[2021-08-03] MEDS: Lactated Ringers 1000 ml BAG 1,000 ML IV SCH (10:50)
[2021-08-03] MEDS: Senna TAB 8.6 mg TAB PO SCH ×2 (10:59→21:05)
[2021-08-03] MEDS: Dextran 70/Hypromellose Tears Eye Drops 15 ml BTL (for Artificials Tears) BOTH EYES SCH ×3 (11:03→21:39)
[2021-08-03 17:23] LABS: ABS Lymphocytes 1.8 10^3/ul (1.0-4.8); ABS Monocytes 1.2 10^3/ul (0-0.8); ABS Neutrophils 7.3 10^3/ul (1.5-7.7); Eosinophil % 0.1 %; Hematocrit 14 % (35-47); Hemoglobin 4.6 g/dL (12.0-16.0); Lymphocyte % 17.3 %; Mean Corpuscular HGB Conc 34 g/dL (31-36); Mean Corpuscular Hemoglobin 31 pg (27-31); Mean Corpuscular Volume 90 fL (80-97); Nucleated Red Blood Cells % 0.4; Platelet Count 133 10^3/uL (150-450); Red Blood Count 1.52 10^6 /uL (3.70-4.87); Red Cell Distribution Width 14 % (10-15); White Blood Count 10.4 10^3/uL (3.5-10.8)
[2021-08-03 17:35] LABS: Calcium 7.3 mg/dL (8.6-10.3); eGFR CKD-EPI 55.6 (>60)
[2021-08-03 18:07] LABS: Hematocrit 13 % (35-47); Hemoglobin 4.4 g/dL (12.0-16.0)
[2021-08-03 22:52] LABS: Hematocrit 22 % (35-47); Hemoglobin 7.1 g/dL (12.0-16.0)
[2021-08-04] MEDS: ceFAZolin 1 GM Q8H (ADVAN) IVPB SCH ×3 (03:35→17:26)
[2021-08-04 04:32] LABS: Hematocrit 29 % (35-47); Hemoglobin 9.8 g/dL (12.0-16.0); Mean Corpuscular HGB Conc 34 g/dL (31-36); Mean Corpuscular Hemoglobin 29 pg (27-31); Mean Corpuscular Volume 86 fL (80-97); Mean Platelet Volume 7.7 fL (7.4-10.4); Platelet Count 113 10^3/uL (150-450); Red Cell Distribution Width 17 % (10-15)
[2021-08-04 04:36] LABS: ABS Basophils 0.1 10^3/ul (0-0.2); ABS Lymphocytes 1.6 10^3/ul (1.0-4.8); ABS Monocytes 1.1 10^3/ul (0-0.8); ABS Neutrophils 7.3 10^3/ul (1.5-7.7); Eosinophil % 0.3 %; Lymphocyte % 16.2 %; Nucleated Red Blood Cells % 0.2
[2021-08-04 04:48] LABS: Albumin 2.3 g/dL (3.2-5.2); Albumin/Globulin Ratio 1.2 (1-3); Calcium 7.4 mg/dL (8.6-10.3); Magnesium 1.8 mg/dL (1.9-2.7); Potassium 3.9 mmol/L (3.5-5.0); Total Bilirubin 0.5 mg/dL (0.2-1.0); Total Protein 4.3 g/dL (6.4-8.9); eGFR CKD-EPI 82.2 (>60)
[2021-08-04] MEDS: Senna TAB 8.6 mg TAB PO SCH ×2 (09:04→20:34)
[2021-08-04] MEDS: Dextran 70/Hypromellose Tears Eye Drops 15 ml BTL (for Artificials Tears) BOTH EYES SCH ×3 (09:06→20:36)
[2021-08-04 09:17] LABS: Hematocrit 30 % (35-47); Hemoglobin 10.2 g/dL (12.0-16.0); Mean Corpuscular HGB Conc 34 g/dL (31-36); Mean Corpuscular Hemoglobin 29 pg (27-31); Mean Corpuscular Volume 86 fL (80-97); Mean Platelet Volume 7.8 fL (7.4-10.4); Platelet Count 132 10^3/uL (150-450); Red Cell Distribution Width 17 % (10-15); White Blood Count 12.5 10^3/uL (3.5-10.8)
[2021-08-04 09:57] LABS: ABS Basophils 0.1 10^3/ul (0-0.2); ABS Lymphocytes 1.7 10^3/ul (1.0-4.8); ABS Monocytes 1.1 10^3/ul (0-0.8); ABS Neutrophils 9.6 10^3/ul (1.5-7.7); Eosinophil % 0.1 %; Lymphocyte % 13.7 %; Nucleated Red Blood Cells % 0.1
[2021-08-04] MEDS ORDERED: Magnesium Sulfate IV 3 GM in NS 0.9% 100 ml BAG 100 ML IVPB ONE (10:00)
[2021-08-04] MEDS ORDERED: Enoxaparin 40 MG/0.4 ML SYR SUBCUT SCH ×2 (12:00→20:00)
[2021-08-05 06:11] LABS: ABS Eosinophils 0.1 10^3/ul (0-0.6); ABS Monocytes 0.9 10^3/ul (0-0.8); ABS Neutrophils 8.2 10^3/ul (1.5-7.7); Hematocrit 29 % (35-47); Hemoglobin 9.8 g/dL (12.0-16.0); Lymphocyte % 18.1 %; Mean Corpuscular HGB Conc 33 g/dL (31-36); Mean Corpuscular Hemoglobin 29 pg (27-31); Mean Corpuscular Volume 87 fL (80-97); Nucleated Red Blood Cells % 0.1; Platelet Count 149 10^3/uL (150-450); Red Blood Count 3.37 10^6 /uL (3.70-4.87); Red Cell Distribution Width 17 % (10-15); White Blood Count 11.2 10^3/uL (3.5-10.8)
[2021-08-05 06:37] LABS: Calcium 7.6 mg/dL (8.6-10.3); Magnesium 2.1 mg/dL (1.9-2.7); Potassium 4.4 mmol/L (3.5-5.0); eGFR CKD-EPI 82.2 (>60)
[2021-08-05] MEDS: Senna TAB 8.6 mg TAB PO SCH (08:06)
[2021-08-05] MEDS: Dextran 70/Hypromellose Tears Eye Drops 15 ml BTL (for Artificials Tears) BOTH EYES SCH (08:06)
[2021-08-05 11:53] VITALS: BP 123/75
[2021-08-05] MEDS ORDERED: cefTRIAXone 1 gm/50 mL NS BAG 1 GM/50 ML BAG IVPB ONE (12:00)
[2021-08-05 12:03] LABS: Rapid COVID-19 Molecular Detected (Undetected)
== END 2021-08-05 13:50 | DRG 480 ==
LOC: ED 13:46 → EDHOLD 17:11 → SUATTDRO 17:11 → EDHOLD 19:35 → MED 21:02
PROVIDERS: ADMIT Internal Medicine; ATTEND Internal Medicine